=== PATIENT | female | born 1950 | race Hispanic/Latino ===

== ENCOUNTER 2017-02-19 07:05 | Inpatient (IN) | payer MEDICARE, OTHER ==
[2017-02-19 07:47] LABS: INR 1.08 (0.93-1.08); PARTIAL THROMBOPLASTIN TIME 28.1 Seconds (23.7-30.8); PROTHROMBIN TIME 11.7 Seconds (9.9-11.8)
[2017-02-19] MEDS ORDERED: Midazolam 2 MG/2 ML VIAL ONE (12:07)
[2017-02-19] MEDS ORDERED: Propofol 10 mg/ml Inj (20 ML) ONE (12:07)
[2017-02-19] MEDS ORDERED: Rocuronium 10 mg/ml (5 ml) ONE (12:33)
[2017-02-19] MEDS ORDERED: Succinylcholine 200 mg/10 ml Inj IV ONE (12:33)
[2017-02-19] MEDS ORDERED: Morphine 4 mg/ml ISec ONE (12:50)
[2017-02-19] MEDS ORDERED: Glycopyrrolate 0.2 mg/ml (2ml vial) ONE (13:48)
[2017-02-19] MEDS ORDERED: Neostigmine Methylsulfate 3mg/3ml Syringe IV ONE (14:03)
[2017-02-19] MEDS ORDERED: HYDROmorphone 0.5 mg/0.5 ml ISec IVP PRN (14:07)
--- NOTE | 2017-02-19 14:08 | PCM.SURG1 ---
Surgeon's Initial Post Op Note - Surgeon's Notes Surgeon: Dr. Pedraza Market Asset Protection Manager: Dr. Aranda PGY3; Dr. Roberto PGY2; Ellie Branham OMS3 Type of Anesthesia: General Endo Anesthesia Administered By: Kristal Pre-Operative Diagnosis: Right Breast mass Operative Findings: same Post-Operative Diagnosis: same Operation Performed: Right Simple Mastectomy with needle localization. Excision of Axillary lymph nodes Specimen/Specimens Removed: Right Breast Estimated Blood Loss: EBL {In ML}: 30 Blood Products Given: N/A Drains Used: Cr Post-Op Condition: Good Date of Surgery/Procedure: 02/19/17 Time of Surgery/Procedure: 14:10
[2017-02-19] MEDS ORDERED: HYDROmorphone 1 mg/ml ISec IVP PRN (14:09)
[2017-02-19] MEDS ORDERED: FORMOTEROL IH PRN (14:11)
[2017-02-19] MEDS ORDERED: MOMETASONE IH PRN (14:11)
[2017-02-19] MEDS ORDERED: ARO IH PRN (14:11)
[2017-02-19] MEDS ORDERED: CLONAZEPAM 1 MG PO PRN (14:11)
[2017-02-19] MEDS ORDERED: FENOFIBRIC ACID 135 MG PO SCH (14:15)
[2017-02-19] MEDS ORDERED: FENOFIBRIC ACID 135 MG PO ONE (14:45)
[2017-02-19] MEDS ORDERED: Non Formulary Medication (Simvastatin [Simvastatin] 20 MG) PO SCH (18:00)
[2017-02-19 19:34] VITALS: BMI 44.9
[2017-02-19] MEDS ORDERED: Pneumococcal 23-Valent Vaccine IM ONE (19:34)
--- NOTE | 2017-02-20 00:15 | OP ---
PROCEDURE DATE: 02/19/2017 PREOPERATIVE DIAGNOSES: 1. Right breast abnormal lesion. 2. History of left breast cancer. POSTOPERATIVE DIAGNOSES: 1. Right breast abnormal lesion. 2. History of left breast cancer. PROCEDURE: Needle localization of the breast lesion and right modified radical mastectomy. SURGEON: Dr. Ole Pedraza MD GOLF PLAYER ASSISTANT: Dr. Aranda and Dr. Enriquez. TYPE OF ANESTHESIA: General endotracheal anesthesia. ANESTHESIA ADMINISTERED BY: Dr. Brownlee. ESTIMATED BLOOD LOSS: Minimal. SPECIMEN: Right breast and right axillary content. INDICATIONS: The patient is a 67-year-old female who has a history of extensive breast cancer of left breast several years ago treated with chemotherapy, but subsequently the patient developed a lesion in the right breast for which she was going through testing over the past few months. Last biopsy showed abnormalities that were suspected for cancer. Given these findings and the previous history and the patient's insistence to have complete mastectomy due to several reasons one of them being to have any possibility of cancer within it. The second one was due to the weight of her breast which was just a right breast after previous left mastectomy cause her significant back pain and discomfort, therefore a decision was made to proceed with modified radical mastectomy in order to remove the entire breast and some of the lymphatic content of the axilla. DESCRIPTION OF PROCEDURE: The patient was brought to the operating room, placed on operating table in supine position. The patient was connected to the EKG, blood pressure, and pulse oximetry monitors. The patient then underwent general endotracheal anesthesia and was prepped and draped in usual sterile fashion. First a standard time-out procedure took place with everybody in the room agreed as to the patient's identity, diagnoses, and procedure to be performed. First the right breast was marked in order to create adequate flap of skin in order to close the wound. Once this was done, I then proceeded with making an incision, first the superior one and flap was raised all the way up to the clavicle. The underlying breast tissue was carefully scooped down along with the pectoralis major muscle. In the similar fashion the inferior flap was raised through the kinsey's ligament to separate the breast from the subcutaneous fat and went down all the way to almost the ridge of the chest. Once this was done, the breast was completely mobilized all the way towards the axilla. Once this was done, I then proceeded with carrying through the fat incision over the axilla and carefully dissected out the lymph nodes from the right axilla the fatty tissue of the lymph node containing tissue from the axillary structure and left most of the nerves intact. The long thoracic nerve was identified and left intact. The tissue was now marked and there was one palpable lymph node within the axilla which was taken separately and sent for a frozen section which came back as negative for cancer. The breast now was removed, highest axillary content was marked with a stitch and sent for pathology. Wound was now copiously irrigated with all the bleeding points were cauterized. There was excellent hemostasis. The Cr drain was placed into the axilla and under the flaps. The wound was closed using 3-0 Vicryl deep dermal stitches and surgical kandi for skin. Sterile dressings were applied to the wound. The patient tolerated the procedure well and there were no complications. The patient was awaken and extubated and transferred to recovery room for further observations. Ole Pedraza MD NEEL
[2017-02-20] MEDS: Insulin Reg-LOW-Coverage SC SCH ×5 (01:54→21:53)
[2017-02-20] MEDS: HYDROmorphone 1 mg/ml ISec SC PRN ×2 (07:40→21:00)
[2017-02-20] MEDS: Digoxin 250 mcg (0.25 mg) Tab PO SCH (09:05)
[2017-02-20] MEDS: diltiaZEM 180 mg/24 Hours CD Cap PO SCH (09:05)
[2017-02-20] MEDS: FENOFIBRIC ACID 135 MG PO SCH ×2 (09:15)
--- NOTE | 2017-02-20 12:25 | CP.PCM.PN ---
<Rios Roberto - Last Filed: 02/20/17 12:17> Subjective - Date & Time of Evaluation Date of Evaluation: 02/20/17 Time of Evaluation: 09:10 - Subjective Subjective: SURGERY NOTE FOR DR. PEDRAZA 67F seen and examined at bedside. Patient complain of pain at site of mastectomy. IV pain medication helps with pain. Tolerating diet. Objective - Vital Signs/Intake and Output Vital Signs (last 24 hours): Temp Pulse Resp BP Pulse Ox 97.6 F 90 17 152/100 H 87 L 02/20/17 06:00 02/20/17 09:05 02/20/17 06:00 02/20/17 09:05 02/20/17 06:00 Intake and Output: 02/20/17 02/20/17 06:59 18:59 Intake Total 400 Output Total 275 Balance 125 - Medications Medications: Current Medications Atorvastatin Calcium (Lipitor) 10 mg PO DIN [facility] Last Admin: 02/19/17 17:59 Dose: 10 mg Digoxin (Lanoxin) 0.25 mg PO DAILY [facility] Last Admin: 02/20/17 09:05 Dose: 0.25 mg Diltiazem HCl (Cardizem Cd) 180 mg PO DAILY [facility] Last Admin: 02/20/17 09:05 Dose: 180 mg Famotidine (Pepcid) 20 mg PO DAILY [facility] Last Admin: 02/20/17 10:24 Dose: 20 mg Furosemide (Lasix) 20 mg PO BID [facility] Last Admin: 02/20/17 09:05 Dose: 20 mg Home Med (Home Med) 1 unit PO TUE [facility] Home Med (Home Med) 1 unit PO DAILY [facility] Last Admin: 02/20/17 09:15 Dose: Not Given Hydromorphone HCl (Dilaudid) 1 mg SC Q4H PRN PRN Reason: Pain, severe (8-10) Last Admin: 02/20/17 07:40 Dose: 1 mg Insulin Human Regular (Humulin R Low) 0 units SC ACHS [facility] PRN Reason: Protocol Last Admin: 02/20/17 07:49 Dose: 3 units Losartan Potassium (Cozaar) 100 mg PO DAILY [facility] Last Admin: 02/20/17 09:05 Dose: 100 mg Metformin HCl (Glucophage Xr) 750 mg PO DAILY [facility] Last Admin: 02/20/17 09:05 Dose: 750 mg Non-Formulary Medication (Clonazepam [Clonazepam]) 1 mg PO Q6H PRN PRN Reason: Anxiety Non-Formulary Medication (Mometasone/Formoterol [Dulera 200 Mcg/5 Mcg Inhaler]) 1 molina IH PRN PRN PRN Reason: Wheezing Non-Formulary Medication (Fenofibric Acid (Choline) [Fenofibric Acid]) 135 mg PO DAILY [facility] Last Admin: 02/20/17 09:15 Dose: Not Given Ondansetron HCl (Zofran Tab) 4 mg PO Q6H PRN PRN Reason: Nausea/Vomiting Last Admin: 02/20/17 08:56 Dose: 4 mg - Labs Labs: PT 11.7 Seconds (9.9-11.8) 02/19/17 07:19 INR 1.08 (0.93-1.08) 02/19/17 07:19 APTT 28.1 Seconds (23.7-30.8) 02/19/17 07:19 - Constitutional Appears: Non-toxic, No Acute Distress - Head Exam Head Exam: ATRAUMATIC - Respiratory Exam Respiratory Exam: Clear to Ausculation Bilateral, NORMAL BREATHING PATTERN - Cardiovascular Exam Cardiovascular Exam: REGULAR RHYTHM, +S1, +S2 - Neurological Exam Neurological Exam: Alert, Awake - Additional Findings Additional findings: breast exam: R/L mastectomy s/p right mastectomy POD1 [place] in place - no signs of infection - NIKKI drain - 15cc serosang overnight Assessment and Plan - Assessment and Plan (Free Text) Assessment: 67F Right Mastectomy and lymph node excision POD1 Plan: - Pain control - Monitor incision site - Monitor NIKKI output - CBC/BMP tomorrow - GI/DVT ppx Discussed with Dr. Aldair Roberto, PGY2 <Ole Pedraza - Last Filed: 02/22/17 00:40> Objective - Vital Signs/Intake and Output Vital Signs (last 24 hours): Temp Pulse Resp BP Pulse Ox 98.0 F 70 20 135/76 90 L 02/21/17 16:00 02/21/17 16:00 02/21/17 16:00 02/21/17 17:07 02/21/17 16:00 Intake and Output: 02/21/17 02/22/17 18:59 06:59 Intake Total 240 480 Output Total 500 Balance 240 -20 - Medications Medications: Current Medications Atorvastatin Calcium (Lipitor) 10 mg PO DIN [facility] Last Admin: 02/21/17 17:07 Dose: 10 mg Digoxin (Lanoxin) 0.25 mg PO DAILY [facility] Last Admin: 02/21/17 09:38 Dose: 0.25 mg Diltiazem HCl (Cardizem Cd) 180 mg PO DAILY [facility] Last Admin: 02/21/17 09:37 Dose: 180 mg Famotidine (Pepcid) 20 mg PO DAILY [facility] Last Admin: 02/21/17 09:37 Dose: 20 mg Furosemide (Lasix) 20 mg PO BID [facility] Last Admin: 02/21/17 17:07 Dose: 20 mg Home Med (Home Med) 1 unit PO TUE [facility] Home Med (Home Med) 1 unit PO DAILY [facility] Last Admin: 02/21/17 12:34 Dose: Not Given Hydromorphone HCl (Dilaudid) 1 mg SC Q4H PRN PRN Reason: Pain, severe (8-10) Last Admin: 02/21/17 13:32 Dose: 1 mg Insulin Human Regular (Humulin R Low) 0 units SC [facility] PRN Reason: Protocol Last Admin: 02/21/17 21:29 Dose: Not Given Losartan Potassium (Cozaar) 100 mg PO DAILY [facility] Last Admin: 02/21/17 09:38 Dose: 100 mg Metformin HCl (Glucophage Xr) 750 mg PO DAILY [facility] Last Admin: 02/21/17 09:37 Dose: 750 mg Non-Formulary Medication (Clonazepam [Clonazepam]) 1 mg PO Q6H PRN PRN Reason: Anxiety Non-Formulary Medication (Mometasone/Formoterol [Dulera 200 Mcg/5 Mcg Inhaler]) 1 molina IH PRN PRN PRN Reason: Wheezing Non-Formulary Medication (Fenofibric Acid (Choline) [Fenofibric Acid]) 135 mg PO DAILY [facility] Last Admin: 02/21/17 12:34 Dose: Not Given Ondansetron HCl (Zofran Tab) 4 mg PO Q6H PRN PRN Reason: Nausea/Vomiting Last Admin: 02/21/17 13:31 Dose: 4 mg - Labs Labs: 02/21/17 09:03 02/21/17 09:03 PT 11.7 Seconds (9.9-11.8) 02/19/17 07:19 INR 1.08 (0.93-1.08) 02/19/17 07:19 APTT 28.1 Seconds (23.7-30.8) 02/19/17 07:19 Assessment and Plan - Assessment and Plan (Free Text) Plan: Patient was seen and examined by me. I agree with assessment and plan as per resident's note.
[2017-02-20 18:50] VITALS: RESP 20
[2017-02-20] MEDS ORDERED: Magnesium Hydroxide Susp 30 ml UD PO ONE (20:22)
--- NOTE | 2017-02-21 06:30 | CP.PCM.PN ---
<Rios Roberto - Last Filed: 02/21/17 06:30> Subjective - Date & Time of Evaluation Date of Evaluation: 02/21/17 Time of Evaluation: 05:35 - Subjective Subjective: SURGERY NOTE FOR DR. PEDRAZA 67F seen and examined at bedside. Patient resting comfortably. NAEON. Patient complaining of moderate pain in the right breast. NIKKI drain in place. Bandage with serous fluid stain. Objective - Vital Signs/Intake and Output Vital Signs (last 24 hours): Temp Pulse Resp BP Pulse Ox 98 F 98 H 20 105/67 93 L 02/20/17 18:00 02/20/17 18:00 02/20/17 18:00 02/20/17 18:00 02/20/17 18:00 Intake and Output: 02/20/17 02/21/17 18:59 06:59 Intake Total 540 Output Total 815 Balance -275 - Medications Medications: Current Medications Atorvastatin Calcium (Lipitor) 10 mg PO DIN [facility] Last Admin: 02/20/17 17:15 Dose: 10 mg Digoxin (Lanoxin) 0.25 mg PO DAILY [facility] Last Admin: 02/20/17 09:05 Dose: 0.25 mg Diltiazem HCl (Cardizem Cd) 180 mg PO DAILY [facility] Last Admin: 02/20/17 09:05 Dose: 180 mg Famotidine (Pepcid) 20 mg PO DAILY [facility] Last Admin: 02/20/17 10:24 Dose: 20 mg Furosemide (Lasix) 20 mg PO BID [facility] Last Admin: 02/20/17 17:15 Dose: 20 mg Home Med (Home Med) 1 unit PO TUE [facility] Home Med (Home Med) 1 unit PO DAILY [facility] Last Admin: 02/20/17 09:15 Dose: Not Given Hydromorphone HCl (Dilaudid) 1 mg SC Q4H PRN PRN Reason: Pain, severe (8-10) Last Admin: 02/20/17 21:00 Dose: 1 mg Insulin Human Regular (Humulin R Low) 0 units SC ACHS [facility] PRN Reason: Protocol Last Admin: 02/20/17 21:53 Dose: Not Given Losartan Potassium (Cozaar) 100 mg PO DAILY [facility] Last Admin: 02/20/17 09:05 Dose: 100 mg Metformin HCl (Glucophage Xr) 750 mg PO DAILY [facility] Last Admin: 02/20/17 09:05 Dose: 750 mg Non-Formulary Medication (Clonazepam [Clonazepam]) 1 mg PO Q6H PRN PRN Reason: Anxiety Non-Formulary Medication (Mometasone/Formoterol [Dulera 200 Mcg/5 Mcg Inhaler]) 1 molina IH PRN PRN PRN Reason: Wheezing Non-Formulary Medication (Fenofibric Acid (Choline) [Fenofibric Acid]) 135 mg PO DAILY [facility] Last Admin: 02/20/17 09:15 Dose: Not Given Ondansetron HCl (Zofran Tab) 4 mg PO Q6H PRN PRN Reason: Nausea/Vomiting Last Admin: 02/20/17 08:56 Dose: 4 mg - Labs Labs: PT 11.7 Seconds (9.9-11.8) 02/19/17 07:19 INR 1.08 (0.93-1.08) 02/19/17 07:19 APTT 28.1 Seconds (23.7-30.8) 02/19/17 07:19 - Constitutional Appears: Non-toxic, No Acute Distress - Respiratory Exam Respiratory Exam: Clear to Ausculation Bilateral, NORMAL BREATHING PATTERN - Cardiovascular Exam Cardiovascular Exam: REGULAR RHYTHM, +S1, +S2 - GI/Abdominal Exam GI & Abdominal Exam: Soft. absent: Distended, Firm, Guarding, Rigid, Tenderness , Rebound - Neurological Exam Neurological Exam: Alert, Awake - Skin Skin Exam: Dry, Intact, Normal Color, Warm Additional comments: Breast exam- patient tender to touch on right breast. kandi in place, serous fluid stains on the dressing - NIKKI drain - 40 cc serous fluid output. Assessment and Plan - Assessment and Plan (Free Text) Assessment: 67F Right Mastectomy and lymph node excision POD2 Plan: - needs inpatient IV Pain control - Monitor incision site - Monitor NIKKI output - CBC/BMP this AM - GI/DVT ppx Discussed with Dr. Aldair Roberto, PGY2 <Ole Pedraza - Last Filed: 02/22/17 00:41> Objective - Vital Signs/Intake and Output Vital Signs (last 24 hours): Temp Pulse Resp BP Pulse Ox 98.0 F 70 20 135/76 90 L 02/21/17 16:00 02/21/17 16:00 02/21/17 16:00 02/21/17 17:07 02/21/17 16:00 Intake and Output: 02/21/17 02/22/17 18:59 06:59 Intake Total 240 480 Output Total 500 Balance 240 -20 - Medications Medications: Current Medications Atorvastatin Calcium (Lipitor) 10 mg PO DIN [facility] Last Admin: 02/21/17 17:07 Dose: 10 mg Digoxin (Lanoxin) 0.25 mg PO DAILY [facility] Last Admin: 02/21/17 09:38 Dose: 0.25 mg Diltiazem HCl (Cardizem Cd) 180 mg PO DAILY [facility] Last Admin: 02/21/17 09:37 Dose: 180 mg Famotidine (Pepcid) 20 mg PO DAILY [facility] Last Admin: 02/21/17 09:37 Dose: 20 mg Furosemide (Lasix) 20 mg PO BID [facility] Last Admin: 02/21/17 17:07 Dose: 20 mg Home Med (Home Med) 1 unit PO TUE [facility] Home Med (Home Med) 1 unit PO DAILY [facility] Last Admin: 02/21/17 12:34 Dose: Not Given Hydromorphone HCl (Dilaudid) 1 mg SC Q4H PRN PRN Reason: Pain, severe (8-10) Last Admin: 02/21/17 13:32 Dose: 1 mg Insulin Human Regular (Humulin R Low) 0 units SC [facility] PRN Reason: Protocol Last Admin: 02/21/17 21:29 Dose: Not Given Losartan Potassium (Cozaar) 100 mg PO DAILY [facility] Last Admin: 02/21/17 09:38 Dose: 100 mg Metformin HCl (Glucophage Xr) 750 mg PO DAILY [facility] Last Admin: 02/21/17 09:37 Dose: 750 mg Non-Formulary Medication (Clonazepam [Clonazepam]) 1 mg PO Q6H PRN PRN Reason: Anxiety Non-Formulary Medication (Mometasone/Formoterol [Dulera 200 Mcg/5 Mcg Inhaler]) 1 molina IH PRN PRN PRN Reason: Wheezing Non-Formulary Medication (Fenofibric Acid (Choline) [Fenofibric Acid]) 135 mg PO DAILY [facility] Last Admin: 02/21/17 12:34 Dose: Not Given Ondansetron HCl (Zofran Tab) 4 mg PO Q6H PRN PRN Reason: Nausea/Vomiting Last Admin: 02/21/17 13:31 Dose: 4 mg - Labs Labs: 02/21/17 09:03 02/21/17 09:03 PT 11.7 Seconds (9.9-11.8) 02/19/17 07:19 INR 1.08 (0.93-1.08) 02/19/17 07:19 APTT 28.1 Seconds (23.7-30.8) 02/19/17 07:19 Assessment and Plan - Assessment and Plan (Free Text) Plan: Patient was seen and examined by me. I agree with assessment and plan as per resident's note.
[2017-02-21] MEDS: Insulin Reg-LOW-Coverage SC SCH ×4 (08:38→21:29)
[2017-02-21 09:06] LABS: HEMOGLOBIN 12.4 gm/dL (12.0-16.0); MEAN CELL VOLUME 90.1 fL (80.0-105.0); MEAN CORPUSCULAR HGB CONC 33.2 g/dl (31.0-37.0); MEAN PLATELET VOLUME 11.3 fl (7.0-11.0); RBC 4.14 10^6/uL (3.5-6.1); RED CELL DISTRIBUTION WIDTH 15.6 % (11.5-14.5); WHITE BLOOD COUNT 10.8 10^3/ul (4.5-11.0)
[2017-02-21 09:21] LABS: BLOOD UREA NITROGEN 20 mg/dL (7-21); CALCIUM 8.7 mg/dL (8.4-10.5); GFR AFRICAN-AMERICAN > 60; GFR NON-AFRICAN AMERICAN > 60
[2017-02-21] MEDS: diltiaZEM 180 mg/24 Hours CD Cap PO SCH (09:37)
[2017-02-21] MEDS: Digoxin 250 mcg (0.25 mg) Tab PO SCH (09:38)
[2017-02-21] MEDS: FENOFIBRIC ACID 135 MG PO SCH ×2 (12:34)
[2017-02-21] MEDS: HYDROmorphone 1 mg/ml ISec SC PRN (13:32)
[2017-02-21 16:47] VITALS: O2SAT 90
[2017-02-22 08:00] VITALS: PULSE 98; TEMP 98.1
[2017-02-22] MEDS: Insulin Reg-LOW-Coverage SC SCH ×2 (08:56→12:05)
[2017-02-22] MEDS ORDERED: Oxycodone/Acetaminophen 5/325 mg Tab PO PRN (08:59)
--- NOTE | 2017-02-22 10:19 | US ---
HISTORY: Patient is a 67-year-old female with history of right breast cancer (Biopsy-proven) presenting for right breast needle localization prior to bilateral mastectomy. TECHNIQUE/FINDINGS: Timeout was called for ultrasound guided wire needle localization procedure for lesion of the right breast. The mass was identified with ultrasound at the 8 o'clock radius 4 cm from the nipple at the right breast. Overlying skin was marked for procedure. Maximum sterile barrier protection is provided and the skin overlying the lesion in question. 1 percent lidocaine was utilized for local anesthesia. A wire was placed through the mass at the right breast with ultrasound guidance utilizing a 7.5 cm coaxial system. Mediolateral and craniocaudal post deployment views were obtained and demonstrated the needle localization wire to be in the mass near the previously placed biopsy clip. the wire was properly secured using sterile transparent barrier as well as cloth tape. Patient tolerated the procedure well with no complications. Postoperatively, the right breast specimen was not sent for post mastectomy imaging. OTHER FINDINGS: None. IMPRESSION: Status post successful ultrasound-guided needle localization right breast mass. The await definitive pathology report.
[2017-02-22] MEDS: diltiaZEM 180 mg/24 Hours CD Cap PO SCH ×2 (10:54→10:55)
[2017-02-22] MEDS: Digoxin 250 mcg (0.25 mg) Tab PO SCH ×2 (10:56→10:57)
[2017-02-22] MEDS: FENOFIBRIC ACID 135 MG PO SCH ×2 (10:56)
[2017-02-22 10:58] VITALS: BP 140/90; PULSE 82
--- NOTE | 2017-02-22 12:48 | CP.PCM.DIS ---
Provider - Provider Date of Admission: 02/19/17 15:45 Attending physician: Ole Pedraza MD Primary care physician: Rafy Charles MD Time Spent in preparation of Discharge (in minutes): 40 Hospital Course - Lab Results Lab Results: Most Recent Lab Values WBC 10.8 10^3/ul (4.5-11.0) D 02/21/17 09:03 RBC 4.14 10^6/uL (3.5-6.1) 02/21/17 09:03 Hgb 12.4 gm/dL (12.0-16.0) 02/21/17 09:03 Hct 37.3 % (36.0-48.0) 02/21/17 09:03 MCV 90.1 fL (80.0-105.0) 02/21/17 09:03 MCH 30.0 pg (25.0-35.0) 02/21/17 09:03 MCHC 33.2 g/dl (31.0-37.0) 02/21/17 09:03 RDW 15.6 % (11.5-14.5) H 02/21/17 09:03 Plt Count 197 10^3/uL (120.0-450.0) 02/21/17 09:03 MPV 11.3 fl (7.0-11.0) H 02/21/17 09:03 PT 11.7 Seconds (9.9-11.8) 02/19/17 07:19 INR 1.08 (0.93-1.08) 02/19/17 07:19 APTT 28.1 Seconds (23.7-30.8) 02/19/17 07:19 Sodium 136 mmol/L (132-148) 02/21/17 09:03 Potassium 4.8 mmol/L (3.6-5.0) 02/21/17 09:03 Chloride 97 mmol/L (98-107) L 02/21/17 09:03 Carbon Dioxide 30 mmol/L (21-33) 02/21/17 09:03 Anion Gap 14 (10-20) 02/21/17 09:03 BUN 20 mg/dL (7-21) 02/21/17 09:03 Creatinine 0.4 mg/dL (0.5-1.4) L 02/21/17 09:03 Est GFR ( Amer) > 60 02/21/17 09:03 Est GFR (Non-Af Amer) > 60 02/21/17 09:03 POC Glucose (mg/dL) 273 mg/dL (65-110) H 02/22/17 11:11 Random Glucose 178 mg/dL (70-110) H 02/21/17 09:03 Calcium 8.7 mg/dL (8.4-10.5) 02/21/17 09:03 - Hospital Course Hospital Course: 67F presented to same day surgery for right breast mastectomy. Operation was uneventful. Patient admitted to post op pain that required several days of IV pain medication. Pain is now improved and patient ready to go home. Patient to get visiting home nurse as per social work. Discharge Exam - Head Exam Head Exam: ATRAUMATIC - Respiratory Exam Respiratory Exam: Clear to PA & Lateral, NORMAL BREATHING PATTERN - Cardiovascular Exam Cardiovascular Exam: REGULAR RHYTHM, +S1, +S2 - GI/Abdominal Exam GI & Abdominal Exam: Soft. absent: Distended, Firm, Guarding, Rebound, Rigid, Tenderness - Neurological Exam Neurological exam: Alert, Oriented x3 - Skin Skin Exam: Dry, Intact, Normal Color, Warm - Additional Findings Additional findings: right breast kandi in place. dressing changed.- no further drainage. Drain is serosanguinous. no redness Discharge Plan - Follow Up Plan Condition: GOOD Disposition: HOME/ ROUTINE Instructions: Mastectomy (DC) Additional Instructions: 1) Follow up with Dr. Pedraza upon discharge 2) At home daily dressing changes for a couple daily then leave incision open to air 3) [place] will be taken out in the office 4) Daily drainage of delroy drain 5) Take prescriptions as directed Referrals: Rafy Charles MD [Primary Care Provider] - Ole Pedraza MD [Staff Provider] -
--- NOTE | 2017-02-22 15:06 | MAM ---
PROCEDURE: Confirmation mammography post ultrasound-guided right needle localization. HISTORY: Right breast mass presenting for needle localization for scheduled bilateral mastectomy. COMPARISON: TECHNIQUE: Digital mammography was performed in craniocaudal and mediolateral views. FINDINGS: Solitary needle localization wires identified placed from an inferior approach the stiffener approximating the prior ultrasound-guided biopsy clip within in the inferior right breast mass best seen on ultrasonography. IMPRESSION: Status post cycle also guided deployment of the localization wire inferior right breast mass.
[2017-02-23] MEDS ORDERED: CHOLECALCIFEROL 50000 UNIT PO SCH (10:00)
[2017-02-23] MEDS ORDERED: Non Formulary Medication (Cholecalciferol (Vitamin D3) [Vitamin D3] 50,000 UNIT) PO SCH (10:00)
== END 2017-02-22 15:57 | disposition home or self-care (01) | DRG 581 ==
LOC: MAMSURG 07:05 → 3RNO 15:45
PROVIDERS: ADMIT General Practice; ATTEND General Practice
PROC: 07B50ZX Excision of Right Axillary Lymphatic, Open Approach, Diagnostic (ICD-10-PCS; 2017-02-19)
PROC: BH40ZZZ Ultrasonography of Right Breast (ICD-10-PCS; 2017-02-19)
PROC: 0HTT0ZZ Resection of Right Breast, Open Approach (ICD-10-PCS; principal; 2017-02-19 12:00)
DX: N60.21 Fibroadenosis of right breast (principal); I10 Essential (primary) hypertension; E11.9 Type 2 diabetes mellitus without complications; G89.18 Other acute postprocedural pain; Z85.3 Personal history of malignant neoplasm of breast; Z90.12 Acquired absence of left breast and nipple; Z92.21 Personal history of antineoplastic chemotherapy; J45.909 Unspecified asthma, uncomplicated; I49.9 Cardiac arrhythmia, unspecified; E66.9 Obesity, unspecified; E80.6 Other disorders of bilirubin metabolism; N60.41 Mammary duct ectasia of right breast; N61.0 Mastitis without abscess; N60.31 Fibrosclerosis of right breast; N60.81 Other benign mammary dysplasias of right breast; N60.91 Unspecified benign mammary dysplasia of right breast; N64.1 Fat necrosis of breast

== ENCOUNTER 2017-04-08 12:26 | Emergency (ER) | payer MEDICARE, OTHER ==
[2017-04-08 12:27] VITALS: PULSE 82; BMI 44.9
[2017-04-08 12:46] VITALS: TEMP 98.2
[2017-04-08] MEDS ORDERED: Morphine 4 mg/ml ISec IM STA (13:06)
--- NOTE | 2017-04-08 13:06 | ED PDOC ---
Arrival/HPI - General Chief Complaint: Back Pain Time Seen by Provider: 04/08/17 12:59 Historian: Patient - History of Present Illness Narrative History of Present Illness (Text): 04/08/17 12:59 67 y/o female, pmh including htn/a.fibb/dm/cholecystitis, nkda, c/o rt. lower back pain radiating to the rt. lower extremity for the past 4 days with no fall or trauma. Aching pain, aggravated by walking and movement, no numbness or tingling, no palpitation, no rash, no night sweat, no dizziness, no change in vision, no urinary symptoms. Pt. is on the eliquis daily for the A.fibb. Past Medical History - Provider Review Nursing Documentation Reviewed: Yes - Infectious Disease Hx of Infectious Diseases: None - Tetanus Immunization Tetanus Immunization: Unknown - Cardiac Hx Cardiac Disorders: Yes Hx Cardiac Arrhythmia: Yes (AFIB) Hx Hypertension: Yes Hx Pacemaker: No Hx Peripheral Edema: Yes - Pulmonary Hx Respiratory Disorders: Yes (SMOKED CIGARETTES QUIT 20 YRS AGO.) Hx Asthma: Yes Hx Chronic Obstructive Pulmonary Disease (COPD): Yes Hx Sleep Apnea: Yes (CPAP) Other/Comment: FORMER SMOKER - Neurological Hx Neurological Disorder: No - HEENT Hx HEENT Disorder: No - Renal Hx Renal Disorder: No - Endocrine/Metabolic Hx Endocrine Disorders: Yes Hx Hyperthyroidism: Yes - Hematological/Oncological Hx Blood Disorders: Yes Hx Cancer: Yes (b/l breast cancer) Hx Chemotherapy: Yes (AND RADIATION TO L BREAT COMPLETED) - Integumentary Hx Dermatological Disorder: Yes Other/Comment: TOTAL MASTECTOMY BILATERAL BREAST. ONE IN 2004 AND ONE 02-19-17 - Musculoskeletal/Rheumatological Hx Musculoskeletal Disorders: Yes Hx Falls: No Hx Unsteady Gait: Yes - Gastrointestinal Hx Gastrointestinal Disorders: Yes (LAP BAND SX) Hx Gall Bladder Disease: Yes (CHOLECYSTECTOMY) Hx Gastroesophageal Reflux: Yes - Genitourinary/Gynecological Hx Genitourinary Disorders: No - Psychiatric Hx Psychophysiologic Disorder: No Hx Emotional Abuse: No Hx Physical Abuse: No Hx Substance Use: No - Surgical History Hx Cholecystectomy: Yes Other/Comment: POST BILATERAL TOTAL MASTECTOMY. LEFT 2004,RIGHT 02-19-17. - Anesthesia Hx Anesthesia Reactions: No Hx Malignant Hyperthermia: No - Suicidal Assessment Feels Threatened In Home Enviroment: No Family/Social History - Physician Review Nursing Documentation Reviewed: Yes Family/Social History: Unknown Family HX Smoking Status: Former Smoker Hx Alcohol Use: No Hx Substance Use: No Hx Substance Use Treatment: No Allergies/Home Meds Allergies/Adverse Reactions: Allergies No Known Allergies Allergy (Verified 04/08/17 12:46) Review of Systems - Review of Systems Constitutional: absent: Fatigue, Fevers Eyes: absent: Vision Changes ENT: absent: Hearing Changes Respiratory: absent: SOB, Cough, Sputum Cardiovascular: absent: Chest Pain Gastrointestinal: absent: Abdominal Pain Genitourinary Female: absent: Dysuria, Frequency Musculoskeletal: Back Pain, Myalgias. absent: Arthralgias, Neck Pain, Joint Swelling Skin: absent: Rash Neurological: absent: Headache, Dizziness Physical Exam Vital Signs Reviewed: Yes Vital Signs Temp Pulse Resp BP Pulse Ox 04/08/17 14:03 86 18 128/69 98 04/08/17 12:54 94 H 18 130/75 98 04/08/17 12:39 98.2 F 100 H 18 132/83 96 Temperature: Afebrile Blood Pressure: Normal Pulse: Regular Respiratory Rate: Normal Appearance: Positive for: Well-Appearing, Non-Toxic Pain Distress: Severe Mental Status: Positive for: Alert and Oriented X 3 - Systems Exam Head: Present: Atraumatic, Normocephalic Pupils: Present: PERRL Extroacular Muscles: Present: EOMI Conjunctiva: Present: Normal Mouth: Present: Moist Mucous Membranes Neck: Present: Normal Range of Motion Respiratory/Chest: Present: Clear to Auscultation, Good Air Exchange. No: Respiratory Distress, Accessory Muscle Use Cardiovascular: Present: Regular Rate and Rhythm, Normal S1, S2. No: Murmurs Abdomen: Present: Normal Bowel Sounds. No: Tenderness, Distention, Peritoneal Signs Back: Present: Normal Inspection, Paraspinal Tenderness, Other (LS spine: +ttp on the rt. parapinal muscle region, no midline tenderness or step off, no rash, FROM without limitation with pain, sensation intact, motor 5/5, no saddling gait. ). No: CVA Tenderness, Midline Tenderness, Decubitus Ulcer Upper Extremity: Present: Normal Inspection. No: Cyanosis, Edema Lower Extremity: Present: Normal Inspection. No: Edema Neurological: Present: GCS=15, Speech Normal, Motor Func Grossly Intact, Gait Normal, Memory Normal Skin: Present: Warm, Dry, Normal Color. No: Rashes Psychiatric: Present: Alert, Oriented x 3, Normal Insight, Normal Concentration Medical Decision Making ED Course and Treatment: 04/08/17 13:19 -CT -RLE Venuous Doppler -Morphine/valium -I checked the [facility], pt. has multiple tramadol prescriptions so likely wouldn't prescribe any controlled substances from the ER. 04/08/17 14:36 -CT LS spine: Multilevel degenerative disc disease. Possible extruded disc at L2 -3 superimposed upon disc bulge. Disc bulge at L1-2 and L3-4. Right parasagittal disc herniation at L4-5. Disc bulge at L5-S1. Multilevel central spinal stenosis and bilateral neural foraminal stenosis as described. Multilevel degenerative facet arthropathy. Lumbar levoscoliosis. Examination is somewhat limited due to patient body habitus. -RLE Venuous doppler show no DVT. -I discussed all labs/radiology results with the patient. -Pt. feels much better now, decadron 10mg IM ordered with the cane -Discharge home with lidoderm patch, cane, continue tramadol at home as needed, follow up with you our own pmd and pain management within 2 days, return to the ER for any new or worsening signs or symptoms. - RAD Interpretation Radiology Orders: 04/08/17 13:06 LUMBAR SPINE W/O CONTRAST [CT] Stat DUPLEX LOWER EXTRM VEIN RIGHT [US] Stat -RLE Venuous Doppler: as per preliminary report, no acute DVT -CT Lumbar spine: PROCEDURE: CT Lumbar Spine without contrast HISTORY: lower back pain radiating to RLE COMPARISON: None. TECHNIQUE: Axial computed tomography images were obtained of the lumbar spine without the use of intravenous contrast. Coronal and sagittal reformatted images were created and reviewed. Radiation dose: Total exam DLP = 951.95 mGy-cm. This CT exam was performed using one or more of the following dose reduction techniques: Automated exposure control, adjustment of the mA and/or kV according to patient size, and/or use of iterative reconstruction technique. FINDINGS: VERTEBRAE: The vertebral bodies are maintained in height. The transverse processes and posterior elements are intact. Normal vertebral alignment is maintained. DISCS/SPINAL CANAL/NEURAL FORAMINA: L1-2: Narrowed intervertebral disc space. Marginal osteophytes. Diffuse disc bulge. Spinal stenosis. Severe right and moderate left neural foraminal stenosis. L2-3: Narrowed intervertebral disc space. Possible extruded disc superimposed upon disc bulge. This is a midline disc extrusion extending along the posterior aspect of the L3 vertebral body. Visualization is somewhat limited. Consider evaluation with magnetic resonance imaging. Severe right and moderate left neural foraminal stenosis. There is central spinal stenosis. L3-4: Narrowed intervertebral disc space. Diffuse disc bulge. Moderate central spinal stenosis. Moderate left and severe right neural foraminal stenosis. Bilateral degenerative facet arthropathy, right greater than left. L4-5: Narrowed intervertebral disc space. Right parasagittal disc herniation. Central spinal stenosis. Severe bilateral neural foraminal stenosis. Bilateral degenerative facet arthropathy. L5-S1: Mild disc bulge. Bilateral degenerative facet arthropathy. Large osteophyte left foraminal and lateral aspect of L5 vertebra resulting in severe left neural foraminal stenosis. There is moderate to severe right neural foraminal stenosis. There is no central spinal stenosis. PARASPINAL SOFT TISSUES: Unremarkable. OTHER FINDINGS: Lumbar levoscoliosis. IMPRESSION: Multilevel degenerative disc disease. Possible extruded disc at L2-3 superimposed upon disc bulge. Disc bulge at L1-2 and L3-4. Right parasagittal disc herniation at L4-5. Disc bulge at L5-S1. Multilevel central spinal stenosis and bilateral neural foraminal stenosis as described. Multilevel degenerative facet arthropathy. Lumbar levoscoliosis. Examination is somewhat limited due to patient body habitus. Residential Youth Counselor: Radiologist - Medication Orders Current Medication Orders: Discontinued Medications Diazepam (Valium) 5 mg PO ONCE ONE PRN Reason: Protocol Stop: 04/08/17 13:07 Last Admin: 04/08/17 13:14 Dose: 5 mg Morphine Sulfate (Morphine) 4 mg IM STAT STA Stop: 04/08/17 13:07 Last Admin: 04/08/17 13:14 Dose: 4 mg - PA / RETAIL SALESWORKER / Resident Statement MD/DO has reviewed & agrees with the documentation as recorded. Disposition/Present on Arrival - Present on Arrival Any Indicators Present on Arrival: No History of DVT/PE: No History of Uncontrolled Diabetes: No Urinary Catheter: No History of Decub. Ulcer: No History Surgical Site Infection Following: None - Disposition Have Diagnosis and Disposition been Completed?: Yes Diagnosis: Lumbar disc herniation with radiculopathy, Degenerative joint disease (DJD) of lumbar spine Disposition: HOME/ ROUTINE Disposition Time: 13:20 Patient Plan: Discharge Condition: IMPROVED Additional Instructions: -Discharge home with lidoderm patch, cane, continue tramadol at home as needed, follow up with you our own pmd and pain management within 2 days, return to the ER for any new or worsening signs or symptoms. Prescriptions: Lidocaine 5% [Lidoderm] 1 patch TOP DAILY PRN #14 patch PRN Reason: Other Referrals: Samson Castrejon MD [IM] - Follow up with primary Jeff Almeida III, MD [Medical Doctor] - Follow up with primary Forms: [employer] (Danish), WORK NOTE
--- NOTE | 2017-04-08 13:56 | CT ---
PROCEDURE: CT Lumbar Spine without contrast HISTORY: lower back pain radiating to RLE COMPARISON: None. TECHNIQUE: Axial computed tomography images were obtained of the lumbar spine without the use of intravenous contrast. Coronal and sagittal reformatted images were created and reviewed. Radiation dose: Total exam DLP = 951.95 mGy-cm. This CT exam was performed using one or more of the following dose reduction techniques: Automated exposure control, adjustment of the mA and/or kV according to patient size, and/or use of iterative reconstruction technique. FINDINGS: VERTEBRAE: The vertebral bodies are maintained in height. The transverse processes and posterior elements are intact. Normal vertebral alignment is maintained. DISCS/SPINAL CANAL/NEURAL FORAMINA: L1-2: Narrowed intervertebral disc space. Marginal osteophytes. Diffuse disc bulge. Spinal stenosis. Severe right and moderate left neural foraminal stenosis. L2-3: Narrowed intervertebral disc space. Possible extruded disc superimposed upon disc bulge. This is a midline disc extrusion extending along the posterior aspect of the L3 vertebral body. Visualization is somewhat limited. Consider evaluation with magnetic resonance imaging. Severe right and moderate left neural foraminal stenosis. There is central spinal stenosis. L3-4: Narrowed intervertebral disc space. Diffuse disc bulge. Moderate central spinal stenosis. Moderate left and severe right neural foraminal stenosis. Bilateral degenerative facet arthropathy, right greater than left. L4-5: Narrowed intervertebral disc space. Right parasagittal disc herniation. Central spinal stenosis. Severe bilateral neural foraminal stenosis. Bilateral degenerative facet arthropathy. L5-S1: Mild disc bulge. Bilateral degenerative facet arthropathy. Large osteophyte left foraminal and lateral aspect of L5 vertebra resulting in severe left neural foraminal stenosis. There is moderate to severe right neural foraminal stenosis. There is no central spinal stenosis. PARASPINAL SOFT TISSUES: Unremarkable. OTHER FINDINGS: Lumbar levoscoliosis. IMPRESSION: Multilevel degenerative disc disease. Possible extruded disc at L2-3 superimposed upon disc bulge. Disc bulge at L1-2 and L3-4. Right parasagittal disc herniation at L4-5. Disc bulge at L5-S1. Multilevel central spinal stenosis and bilateral neural foraminal stenosis as described. Multilevel degenerative facet arthropathy. Lumbar levoscoliosis. Examination is somewhat limited due to patient body habitus.
[2017-04-08 14:03] VITALS: BP 128/69; PULSE 86
[2017-04-08] MEDS ORDERED: Dexamethasone 4 mg/1 ml ONE (14:56)
[2017-04-08 15:13] VITALS: RESP 16; O2SAT 99
--- NOTE | 2017-04-08 16:50 | US ---
PROCEDURE: Right lower extremity venous US HISTORY: Leg pain and swelling. Evaluate for DVT. PHYSICIAN(S): Renard Russell M.D. TECHNIQUE: Duplex sonography and color-flow Doppler with graded compression were used to evaluate the deep venous system of the right lower extremity. FINDINGS: The visualized deep venous system of the right lower extremity is sonographically normal and compressible. Normal waveforms and augmentation are seen. There is no sonographic evidence for deep venous thrombosis in the visualized segments of the right lower extremity. IMPRESSION: 1. No sonographic evidence for deep venous thrombosis in the visualized segments of the right lower extremity.
== END 2017-04-08 15:13 | disposition home or self-care (01) ==
LOC: ED 12:26
DX: M51.16 Intervertebral disc disorders with radiculopathy, lumbar region (principal); M47.896 Other spondylosis, lumbar region
CPT/HCPCS: 72131; 93971; 96372; 99283; J1100; J2270

== ENCOUNTER → 2017-12-16 | Day surgery (SDC) | payer MEDICARE ==
[2017-12-08 12:08] VITALS: BMI 45.7
[~2017-12-16] MED LIST: Iodixanol 320 MG/ML 200 ML BOTTLE IV ONE; Lidocaine 2% Inj (20ml) ONE; Midazolam 2 MG/2 ML VIAL ONE; Sodium Chloride 0.9% 1,000 ML IV SCH
--- NOTE | 2017-12-16 03:53 | HP ---
DATE OF EXAM: 12/15/2017 REASON FOR ADMISSION: Left and right heart catheterization, possible angioplasty. BRIEF CLINICAL HISTORY: This is a 67-year-old morbidly obese female with history of hypertension, diabetes, obesity, chronic atrial fibrillation, on Eliquis, pulmonary hypertension, complaining of chest pain and feels heaviness in the heart, and explains something sitting very tight in the chest especially when walks. Patient states that stress test was done by Dr. Cordova and is negative, and does not want to do anything, but patient is still complaining of chest pain. Also patient deferred for right heart catheterization by Dr. Cuellar and Dr. Rafy Charles, and Dr. Benites. PAST MEDICAL HISTORY: Significant for pulmonary hypertension, morbid obesity, diabetes, hypertension, hyperlipidemia, chronic atrial fibrillation. CURRENT MEDICATIONS: Patient is taking acetaminophen 325 mg every 6 hours p.r.n.; atorvastatin 40 mg daily; Eliquis 2.5 mg b.i.d., last Eliquis in 2013; digoxin 0.125; montelukast/Singulair, Pepcid, omeprazole, metformin, Cardizem, losartan, and Lexapro. ALLERGIES: NO KNOWN DRUG ALLERGIES. RECENT CARDIAC WORKUP: As follows; patient had echocardiogram which shows ejection fraction 59%, right ventricular systolic pressure 53, moderate pulmonary hypertension. Patient had stress test Lexiscan done on 09/26/2017, which is negative. REVIEW OF SYSTEMS: As per HPI. PHYSICAL EXAMINATION: VITAL SIGNS: Height of the patient is 5 feet, weight of the patient is 234 pounds, body mass index 46 kg/m2. Rest of the examination is as follows; heart rate 80, blood pressure 134/86. HEENT: PERRLA. Extraocular muscles are intact. NECK: Supple. No carotid bruit or thyromegaly. CHEST: Clear to auscultation. HEART: S1 and S2 regular. ABDOMEN: Soft. EXTREMITIES: Clubbing and cyanosis negative. IMPRESSION: Recurrent chest pain, though stress test was normal, possibly false normal. Obesity, hypertension, hyperlipidemia, pulmonary hypertension, dyspnea on exertion. Last echocardiogram showed ejection fraction 59% with right ventricular systolic pressure of 53. History of bilateral breast cancer, status post mastectomy, on oral pills for cancer. RECOMMENDATIONS: Left and right heart catheterization. Further recommendations after cardiac catheterization. Last Eliquis dose was on 12/13/2017. We will follow with you. Thank you Dr. Munoz/Dr. Rafy Charles for providing us the opportunity in taking care of the patient, Lizzy Castanon. Martind MD Jason NEEL
[2017-12-16 08:01] LABS: BASO # 0.03 K/mm3 (0.0-2.0); BASO % 0.3 % (0.0-3.0); EOS # 0.3 (0.0-0.7); EOS % 3.2 % (1.5-5.0); GRAN # 6.02 (1.4-6.5); GRAN % 61.4 % (50.0-68.0); HEMOGLOBIN 13.7 g/dL (12.0-16.0); LYMPH # 2.7 (1.2-3.4); LYMPH % 27.8 % (22.0-35.0); MEAN CELL VOLUME 89.3 fl (80.0-105.0); MEAN CORPUSCULAR HEMOGLOBIN 29.8 pg (25.0-35.0); MEAN CORPUSCULAR HGB CONC 33.4 g/dl (31.0-37.0); MEAN PLATELET VOLUME 10.5 fl (7.0-11.0); MONO # 0.7 (0.1-0.6); MONO % 7.3 % (1.0-6.0); RBC 4.59 10^6/uL (3.5-6.1); RED CELL DISTRIBUTION WIDTH 15.8 % (11.5-14.5); WHITE BLOOD COUNT 9.8 10^3/ul (4.5-11.0)
[2017-12-16 08:12] LABS: INR 1.01 (0.93-1.08); PROTHROMBIN TIME 11.6 SECONDS (9.4-12.5)
[2017-12-16 08:13] LABS: PARTIAL THROMBOPLASTIN TIME 27.8 Seconds (25.1-36.5)
[2017-12-16 08:19] LABS: BLOOD UREA NITROGEN 20 mg/dL (7-21); CALCIUM 9.9 mg/dL (8.4-10.5); GFR AFRICAN-AMERICAN > 60; GFR NON-AFRICAN AMERICAN > 60; HDL CHOLESTEROL 41 mg/dL (29-60)
[2017-12-16 08:29] LABS: LDL CHOLESTEROL 109 mg/dL (0-129)
[2017-12-16 09:42] VITALS: RESP 18; TEMP 98.2
--- NOTE | 2017-12-16 10:13 | CPOSTOP ---
DATE: 12/16/2017 CARDIOVASCULAR CHARCOAL UNLOADER PROCEDURE POSTPROCEDURE NOTE DICTATING PHYSICIAN: Anthony Gomez MD. SPECIALTY MANUFACTURING SUPERVISOR: Tomás Mcginnis, painting technician. TYPE OF ANESTHESIA: Moderate conscious sedation. Total dose given 3 mg of Versed, 100 of fentanyl. Periodically started 1 mg of Versed, 50 of Fentanyl. PROCEDURE PERFORMED: Complete left and right heart catheterization. FINDINGS: Mild nonobstructive coronary artery disease, pulmonary hypertension. FINAL DIAGNOSES: Mild nonspecific coronary artery disease, pulmonary hypertension. POST PROCEDURE CONDITION: Postprocedure, the patient's condition is stable. VASCULAR ACCESS SITE: Right femoral groin. CLOSURE DEVICE: Angio-Seal on right femoral artery. Mynx on right femoral vein. TOTAL RADIATION DOSE: 7251.4 antonio Mckoy Unit. FLUORO TIME: 3.4 minutes. Anthony Gomez MD [facility]
--- NOTE | 2017-12-16 13:07 | CARD ---
APPROVED REPORT EKG Measurement Heart [id number] <Conclusion> Atrial fibrillation with rapid ventricular response Abnormal ECG
[2017-12-16 15:00] VITALS: BP 126/57; PULSE 92; O2SAT 94
--- NOTE | 2017-12-16 15:44 | CARD ---
APPROVED REPORT Procedure(s) performed: Complete Heart Catheterization HISTORY The patient is a 67 year-old female with a history of : most recent EF: 59%. (EF Method: Echocardiogram), previous cardiac transplant, peripheral vascular disease, diabetes mellitus with oral treatment , chronic lung disease, tobacco history() : The patient is a former smoker , hypertension , dyslipidemia , Morbid Obesity, SOPHY, Pulmonary HTN, ANA LUISA and chest pain( chest tightness). Hx of ch. afib on Eliquis at home.. INDICATION The indication(s) include : unstable angina , chest pain, atrial fibrillation, dyspnea. CASE TECHNIQUE The patient was brought electively to the Cardiac Catheterization Laboratory in a fasting state and was prepped and draped in a sterile manner. The right femoral groin was infiltrated with 2% Lidocaine subcutaneous anesthesia. A 6 Fr x 11 cm Alida sheath was inserted into the right femoral artery without difficulty. Coronary angiography was performed using coronary diagnostic catheters. The left coronary system was accessed and visualized with a Diagnostic , 6F JL4 CATH DXT 100 CM catheter. The right coronary system was accessed and visualized with a Diagnostic ,6F JR 4 CATH DXT 100 CM catheter. The left ventricle was accessed and visualized with a 6F PIGTAIL 145 CATH DXT 110 CM catheter. Left ventricular/Aortic Valve gradient assessed on pullback. Left ventriculogram was performed in ESTRADA projection. Pre-demployment femoral angiogram was performed . Closure device was deployed with a 6 Fr Angio-Seal without any complications. The patient tolerated the procedure well and there were no complications associated with the procedure. Vessel Analysis The patient's coronary anatomy is co-dominant. The left main coronary artery is a medium size vessel with diffuse calcification noted throughout this vessel and without significant stenosis. The left main bifurcates to the left anterior descending and circumflex. The left anterior descending artery is a medium size vessel with diffuse calcification noted throughout this vessel and without significant stenosis. There is a 40-50% stenosis in the mid segment. The first diagonal branch is a small size vessel with diffuse calcification noted throughout this vessel and without significant stenosis. The circumflex artery is a medium size vessel with diffuse calcification noted throughout this vessel and without significant stenosis. The first obtuse marginal branch is a medium size vessel with diffuse calcification noted throughout this vessel and without significant stenosis. The second obtuse marginal branch is a medium size vessel with diffuse calcification noted throughout this vessel and without significant stenosis. The left posterior descending artery is a medium size vessel with diffuse calcification noted throughout this vessel and without significant stenosis. The right coronary artery is a medium size vessel with diffuse calcification noted throughout this vessel and without significant stenosis. The right posterior descending artery is a small size vessel with diffuse calcification noted throughout this vessel and without significant stenosis. There is a 55% stenosis in the distal segment. diffusely diz, but no focal stenosis. The right posterolateral branch is a small size vessel with diffuse calcification noted throughout this vessel and without significant stenosis. Left Ventricle The left ventricle is bordrline in size with normal contractility. There was no cardiomyopathy. The left ventricular ejection fraction is estimated to be 55-60%. The left ventricular end diastolic pressure is 16-18 mmHg. Right Heart Cath Findings The Right Atrial Pressure is 12/12/11 mmHg. The Right Ventricular Pressure is 48/12 mmHg. The Pulmonary Artery Pressure is 48/20 mmHg. mean of 27 The Pulmonary Catheter Wedge Pressure is 12 mmHg. PVR 3.34 Wood units. The cardiac output and index were assessed using thermo dilution. The Cardiac Output is 4.48 L/min. The Cardiac index is 2.25 L/min/m2. Conclusion Non obstructive CAD, Distal R PDA diffusely [id number]% Preserved LV FX. EF-55-60%, CCV36-38 mmof Hg. RHC;RA-12,RV-48/12,PA-48/20 with men of 27 mmof Hg. PCW-12, CO-4.48, CI-2.25, PVR-3.34 rogers unit Recommendations Cardiac Rehabilitation Referral Aggressive Medical TherapyCardiac Risk Reduction Program Weight Loss Reduction Program Consider adding treatment for pulmonary HTN. Restart Metformin and Eliquis from am CC; Alexander Mitchell/ George/ Natanael Charles.
== END | disposition home or self-care (01) ==
LOC: CATH 07:23
PROVIDERS: ATTEND Internal Medicine Cardiovascular Disease
DX: I25.750 Atherosclerosis of native coronary artery of transplanted heart with unstable angina (principal); I48.2 Chronic atrial fibrillation; I10 Essential (primary) hypertension; E66.01 Morbid (severe) obesity due to excess calories; I27.20 Pulmonary hypertension, unspecified; E78.5 Hyperlipidemia, unspecified; E11.51 Type 2 diabetes mellitus with diabetic peripheral angiopathy without gangrene; Z68.42 Body mass index [BMI] 45.0-49.9, adult; Z87.891 Personal history of nicotine dependence; G47.33 Obstructive sleep apnea (adult) (pediatric); Z79.84 Long term (current) use of oral hypoglycemic drugs; Z79.01 Long term (current) use of anticoagulants; Z85.3 Personal history of malignant neoplasm of breast; Z90.13 Acquired absence of bilateral breasts and nipples; Z79.899 Other long term (current) drug therapy
CPT/HCPCS: 36415; 80048; 80061; 85025; 85610; 85730; 86850; 86900; 93005; 93460; 99152; 99153; C1760 ×2; C1769; C1894; C2629; J1644; J2250; J3010; J7030; J7040; Q9966

== ENCOUNTER 2018-09-12 15:34 | Outpatient (CLI) | payer MEDICARE | END 2018-09-12 15:35 | disposition home or self-care (01) | LOC: RAD 15:35 | DX: M25.561 Pain in right knee (principal); M25.562 Pain in left knee; E04.1 Nontoxic single thyroid nodule; R05 Cough ==

== ENCOUNTER 2018-10-24 13:14 | Inpatient (IN) | payer MEDICARE ==
--- NOTE | 2018-10-24 13:32 | ED PDOC ---
Arrival/HPI - General Chief Complaint: Shortness Of Breath Time Seen by Provider: 10/24/18 13:18 Historian: Patient - Critical Care Critical Care Minutes: 45 minutes - History of Present Illness Narrative History of Present Illness (Text): 10/24/18 13:34 68 y/o female with pmhx of A-fib, pulmonary hypertension, Asthma, sleep apnea, breast CA s/p mastectomy (2004,2016), who presents to the ED for shortness of breath since yesterday. Patient expresses difficulty speaking in full sentences secondary to shortness of breath. Patient states taking her asthma medication but denies taking any nebulizer treatments at home. Patient reports past admission for similar asthma exacerbation. Patient additionally states recent completion of antibiotics for viral URI illness. Patient denies chest pain, headache, dizziness, neck pain, or any other complaints. Also, patient has no history of intubation. PMD: Dr. Charles Oncologist: Dr. Benites Time/Duration: 24 hours Symptom Onset: Gradual Symptom Course: Worsening Context: Home Past Medical History - Provider Review Nursing Documentation Reviewed: Yes - Infectious Disease Hx of Infectious Diseases: None - Tetanus Immunization Tetanus Immunization: Unknown - Cardiac Hx Congestive Heart Failure: Yes Hx Pacemaker: No - Pulmonary Hx Respiratory Disorders: Yes (SMOKED CIGARETTES QUIT 20 YRS AGO.) Hx Asthma: Yes Hx Chronic Obstructive Pulmonary Disease (COPD): Yes Hx Sleep Apnea: Yes (CPAP) Other/Comment: FORMER SMOKER - Neurological Hx Paralysis: No - HEENT Hx HEENT Disorder: No - Renal Hx Renal Disorder: No - Endocrine/Metabolic Hx Endocrine Disorders: Yes Hx Hyperthyroidism: Yes - Hematological/Oncological Hx Blood Transfusions: No Hx Blood Transfusion Reaction: (NA) - Integumentary Hx Dermatological Disorder: Yes Other/Comment: TOTAL MASTECTOMY BILATERAL BREAST. ONE IN 2004 AND ONE 02-19-17 - Musculoskeletal/Rheumatological Hx Musculoskeletal Disorders: Yes - Gastrointestinal Hx Gastrointestinal Disorders: Yes (LAP BAND SX) Hx Gall Bladder Disease: Yes (CHOLECYSTECTOMY) Hx Gastroesophageal Reflux: Yes - Genitourinary/Gynecological Hx Genitourinary Disorders: No - Psychiatric Hx Emotional Abuse: No Hx Physical Abuse: No Hx Substance Use: No - Surgical History Hx Cholecystectomy: Yes Other/Comment: POST BILATERAL TOTAL MASTECTOMY. LEFT 2004,RIGHT 02-19-17. - Anesthesia Hx Anesthesia Reactions: No Hx Malignant Hyperthermia: No - Suicidal Assessment Feels Threatened In Home Enviroment: No Family/Social History - Physician Review Nursing Documentation Reviewed: Yes Family/Social History: Unknown Family HX Smoking Status: Former Smoker Hx Alcohol Use: No Hx Substance Use: No Hx Substance Use Treatment: No Allergies/Home Meds Allergies/Adverse Reactions: Allergies No Known Allergies Allergy (Verified 10/24/18 14:08) Home Medications: Home Meds Medication Instructions Recorded Confirmed Acetaminophen [Tylenol 325mg tab] 325 mg PO PRN PRN 12/13/17 12/16/17 Acetaminophen/Butalbital/Caf 1 tab PO PRN PRN 12/13/17 12/16/17 [Fioricet] Apixaban [Eliquis] 2.5 mg PO BID 12/13/17 12/16/17 Atorvastatin [Lipitor] 40 mg PO HS 12/13/17 12/16/17 Digoxin [Lanoxin] 0.125 mg PO QAM 12/13/17 12/16/17 Dulaglutide [Trulicity] 1.5 mg SC MON 12/13/17 12/16/17 Ergocalciferol (Vitamin D2) 50,000 unit PO TUE 12/13/17 12/13/17 [Vitamin D2] Escitalopram [Lexapro] 10 mg PO QAM 12/13/17 12/16/17 Esomeprazole Magnesium [Nexium] 40 mg PO QAM 12/13/17 12/16/17 Famotidine [Pepcid] 20 mg PO DAILY 12/13/17 12/16/17 Levocetirizine Dihydrochloride 5 mg PO DAILY PRN 12/13/17 12/16/17 [Xyzal] Losartan [Cozaar] 100 mg PO QAM 12/13/17 12/16/17 Montelukast [Singulair] 10 mg PO HS 12/13/17 12/16/17 Omeprazole 40 mg PO HS 12/13/17 12/16/17 Vitamins 50+ Packet 1 packet PO DAILY 12/13/17 12/16/17 [id number] CD [Cardizem CD] 180 mg PO BID 12/13/17 12/16/17 MetFORMIN ER [Glucophage XR] 750 mg PO DAILY 12/16/17 12/16/17 Ambrisentan [Letairis] 5 mg PO 04/21/18 Fluticasone/Umeclidin/Vilanter 1 each IH 04/21/18 [Trelegy Ellipta 100-62.5-25] GlipiZIDE [Glucotrol] 5 mg PO TID 04/21/18 04/21/18 clonazePAM [Klonopin] 0.5 mg PO 04/21/18 Review of Systems - Physician Review All systems were reviewed & negative as marked: Yes - Review of Systems Respiratory: SOB Cardiovascular: absent: Chest Pain Neurological: absent: Headache Physical Exam - Physical Exam Narrative Physical Exam (Text): 10/24/18 13:46 Constitutional: Distress secondary to shortness of breath. Head: Normocephalic. Atraumatic. Eyes: PERRL. ENT: Moist mucous membranes. Neck: Supple. Cardiovascular: Regular rate. Chest: No tenderness. Respiratory: Tachypneic, speaking in short sentences. Clear to auscultation bilaterally. GI: Soft. Nontender. Nondistended. Back: No CVA tenderness. Musculoskeletal: No tenderness. Bilateral pitting edema. Skin: No rash. Neurologic: Alert, no focal deficit. Vital Signs Reviewed: Yes Temperature: Afebrile Blood Pressure: Normal Pulse: Regular Respiratory Rate: Tachypneic Appearance: Positive for: Well-Appearing, Non-Toxic, Uncomfortable Pain Distress: Moderate Mental Status: Positive for: Alert and Oriented X 3 Medical Decision Making ED Course and Treatment: 10/24/18 13:49 Impression: 68 year old female who presents to the ED c/o shortness of breath. Plan: -- ABG -- EKG --Labs --Chest X-ray --Duoneb --Solu-Medrol -- Reassess and disposition Prior Visits: Notes and results from previous visits were reviewed. Progress Notes: 10/24/18 13:52 EKG Reviewed, shows A-fib @ 127 bpm, no ST/T wave changes. 10/24/18 15:28 CXR reviewed, shows no active disease. No significant interval changes compared to prior examinations. 10/24/18 15:[address] Drew. who is aware and agrees with ED management plan, accepts patient under her service. Requests CTA. - Critical Care Critical Care Minutes: 45 minutes - RAD Interpretation Radiology Orders: 10/24/18 13:30 CHEST PORTABLE [RAD] Stat Stencil Sprayer: Radiologist - Medication Orders Current Medication Orders: Albuterol/Ipratropium (Duoneb 3 Mg/0.5 Mg (3 Ml) Ud) 3 ml IH Q15MIN KARINA Stop: 10/26/18 13:31 Methylprednisolone (Solu-Medrol) 125 mg IVP STAT STA Stop: 10/24/18 13:31 - Scribe Statement The provider has reviewed the documentation as recorded by the Maykel mccoy with Marce. All medical record entries made by the Katinaibe were at my direction and personally dictated by me. I have reviewed the chart and agree that the record accurately reflects my personal performance of the history, physical exam, medical decision making, and the department course for this patient. I have also personally directed, reviewed, and agree with the discharge instructions and disposition. Disposition/Present on Arrival - Present on Arrival Any Indicators Present on Arrival: No History of DVT/PE: No History of Uncontrolled Diabetes: No Urinary Catheter: No History Surgical Site Infection Following: None - Disposition Have Diagnosis and Disposition been Completed?: Yes Diagnosis: Asthma exacerbation, Pulmonary hypertension Disposition: HOSPITALIZED Disposition Time: 15:45 Patient Plan: Admission, Telemetry Condition: GUARDED Referrals: Rafy Charles MD [Primary Care Provider] - Follow up with primary Forms: [employer] ([place])
[2018-10-24] MEDS: Albuterol-Ipratrop 3 mg / 0.5 (3 ml) UD IH SCH ×3 (13:40→20:43)
[2018-10-24] MEDS ORDERED: Albuterol-Ipratrop 3 mg / 0.5 (3 ml) UD ONE (13:56)
[2018-10-24 14:16] LABS: ARTERIAL BLOOD GAS HCO3 27.3 mmol/L (21-28); ARTERIAL BLOOD GAS O2 CAPACITY 16.4 mL/dl (16-24); ARTERIAL BLOOD GAS O2 CONTENT 15.8 ML/dl (15-23); ARTERIAL BLOOD GAS O2 SAT 96.5 % (95-98); ARTERIAL BLOOD GAS PCO2 35 mm/Hg (35-45); ARTERIAL BLOOD GAS TCO2 28.4 mmol.L (22-28)
[2018-10-24 14:54] LABS: ALB/GLOB RATIO 1.4 (1.1-1.8); ALBUMIN 4.2 g/dL (3.0-4.8); ALT/SGPT 15 U/L (7-56); AST/SGOT 30 U/L (14-36); BLOOD UREA NITROGEN 19 mg/dL (7-21); CALCIUM 9.6 mg/dL (8.4-10.5); GFR NON-AFRICAN AMERICAN > 60
[2018-10-24 15:05] LABS: B-TYPE NATRIURETIC PEPTIDE 258 pg/mL (0-450); TROPONIN I < 0.01 ng/mL
[2018-10-24 15:06] LABS: INR 1.31; PARTIAL THROMBOPLASTIN TIME 35.1 Seconds (26.9-38.3); PROTHROMBIN TIME 14.5 SECONDS (9.4-12.5)
[2018-10-24 15:12] LABS: D DIMER < 200 ng/mlDDU (0-243)
--- NOTE | 2018-10-24 15:25 | RAD ---
Date of service: 10/24/2018 HISTORY: Dyspnea. COMPARISON: 09/12/2018. FINDINGS: LUNGS: No active pulmonary disease. PLEURA: No significant pleural effusion identified, no pneumothorax apparent. CARDIOVASCULAR: Atherosclerotic calcifications identified primarily aortic arch. No radiographic findings to suggest acute or significant cardiovascular disease. OSSEOUS STRUCTURES: No significant abnormalities. VISUALIZED UPPER ABDOMEN: Normal. OTHER FINDINGS: None. IMPRESSION: No active disease. No significant interval change compared to the prior examination(s).
--- NOTE | 2018-10-24 17:15 | CARD ---
APPROVED REPORT Date of service: 10/24/2018 EKG Measurement Heart [id number] <Conclusion> Atrial fibrillation with rapid ventricular response Abnormal ECG
--- NOTE | 2018-10-24 17:54 | CT ---
Date of service: 10/24/2018 CTA chest PE protocol Indication: dyspnea, h/o cancer, r/o PE Technique: Contiguous axial images were obtained through the chest with intravenous contrast enhancement. Sagittal and coronal reconstructions were generated and reviewed. This CT exam was performed using 1 or more of the following dose reduction techniques: Automated exposure control, adjustment of the MAA and/or kV according to patient size, and/or use of iterative reconstruction technique. IV contrast: 150 mL Omnipaque 350 IV Radiation dose (DLP): 439.99 MGy-cm. Comparison: Chest x-ray performed 10/24/18, CTA chest performed 04/20/18 Findings: Partially imaged thyroid gland demonstrates enlarged heterogeneous right and diminutive left thyroid gland with bilateral calcifications. The mediastinal and hilar vascular structures appear within normal limits. Cardiomegaly. No large central or segmental pulmonary embolus evident. No focal consolidation. No pleural effusion. No pneumothorax. Multiple small nodular opacities measuring approximately 4 mm and below Limited visualized portions of the upper abdomen appear grossly unremarkable. The patient has undergone bilateral mastectomy with right breast prosthesis present. Osseous demineralization. Multilevel degenerative changes. Kyphosis. Impression: No large central or segmental pulmonary embolus identified. Numerous scattered pulmonary nodules measuring up to 4 mm; according to the 2017 Fleischner criteria, the patient is high risk, an optional CT at 12 months is recommended. Status post bilateral mastectomy with right breast prosthesis present. Partially imaged thyroid gland demonstrates enlarged heterogeneous right and diminutive left thyroid gland with bilateral calcifications.
--- NOTE | 2018-10-24 18:02 | CP.PCM.CON ---
History of Present Illness - History of Present Illness History of Present Illness: Gopal Benson DO, PGY-1 Hematology/Oncology Consult Note for Dr. Benites Consult Requested by Dr. Jaime, Dr. Drew CC: SOB, wheezing HPI: Patient is a 68 year old female with PMH of osteoporosis (on prolia), pHTN, HTN, HLD, AFib (on eliquis), DM2, chronic low back pain, and L sided intra- ductal carcinoma (s/p L mastectomy in 2004, s/p chemo/XRT and s/p patient preference R mastectomy in 2017) presented to [facility] ED with a complaint of worsening dyspnea. She states that it has been difficult to speak in full sentences secondary to dyspnea. She states the dyspnea is worse with exertion and improves with rest. She reports recently completing a course of abx for bronchitis. She reports having to use her rescue inhaler more frequently and that it is not helping. She otherwise denies fever/chills, CP, abd pain/nausea /vomiting, or urinary complaints. 12 point ROS otherwise negative except as specified above. PMD: Dr. Charles Past Medical History: osteoporosis (on prolia), pHTN, HTN, HLD, AFib (on eliquis), DM2, chronic low back pain, and L sided intra-ductal carcinoma (s/p L mastectomy in 2004, s/p chemo/XRT and s/p patient preference R mastectomy in 2017) Past Surgical History: L mastectomy 2004, patient preference R mastectomy 2017 Allergies: NKA Home medications: Lipitor, metformin, lasix, glipizide, singulair, eliquis, losartan, klonopin, vitamin D, digoxin, diltiazem Family History: mother had stomach CA, brother has renal cell CA Social History: admits to prior smoking history approximately 1/2 PPD but quit > 10 years ago, denies EtOH, denies illicit drug use, 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 Past Patient History - Infectious Disease Hx of Infectious Diseases: None - Tetanus Immunizations Tetanus Immunization: Unknown - Past Social History Smoking Status: Former Smoker - CARDIAC Hx Congestive Heart Failure: Yes Hx Pacemaker: No - PULMONARY Hx Respiratory Disorders: Yes (SMOKED CIGARETTES QUIT 20 YRS AGO.) Hx Asthma: Yes Hx Chronic Obstructive Pulmonary Disease (COPD): Yes Hx Sleep Apnea: Yes (CPAP) Other/Comment: FORMER SMOKER - NEUROLOGICAL Hx Paralysis: No - HEENT Hx HEENT Problems: No - RENAL Hx Chronic Kidney Disease: No - ENDOCRINE/METABOLIC Hx Endocrine Disorders: Yes Hx Hyperthyroidism: Yes - HEMATOLOGICAL/ONCOLOGICAL Hx Blood Transfusions: No Hx Blood Transfusion Reaction: (NA) - INTEGUMENTARY Hx Dermatological Problems: Yes Other/Comment: TOTAL MASTECTOMY BILATERAL BREAST. ONE IN 2004 AND ONE 02-19-17 - MUSCULOSKELETAL/RHEUMATOLOGICAL Hx Musculoskeletal Disorders: Yes - GASTROINTESTINAL Hx Gastrointestinal Disorders: Yes (LAP BAND SX) Hx Gall Bladder Disease: Yes (CHOLECYSTECTOMY) Hx Gastroesophageal Reflux: Yes - GENITOURINARY/GYNECOLOGICAL Hx Genitourinary Disorders: No - PSYCHIATRIC Hx Emotional Abuse: No Hx Physical Abuse: No Hx Substance Use: No - SURGICAL HISTORY Hx Cholecystectomy: Yes Other/Comment: POST BILATERAL TOTAL MASTECTOMY. LEFT 2004,RIGHT 02-19-17. - ANESTHESIA Hx Anesthesia Reactions: No Hx Malignant Hyperthermia: No Meds Allergies/Adverse Reactions: Allergies Allergy/AdvReac Type Severity Reaction Status Date / Time No Known Allergies Allergy Verified 10/24/18 14:08 - Medications Medications: Current Medications Albuterol/Ipratropium (Duoneb 3 Mg/0.5 Mg (3 Ml) Ud) 3 ml IH Q15MIN KARINA Stop: 10/26/18 13:31 Last Admin: 10/24/18 14:19 Dose: 3 ml Physical Exam - Constitutional Appears: Non-toxic, No Acute Distress - Head Exam Head Exam: ATRAUMATIC, NORMOCEPHALIC - Eye Exam Eye Exam: EOMI, PERRL - ENT Exam ENT Exam: Mucous Membranes Moist - Neck Exam Neck exam: Positive for: Full Rom, Normal Inspection - Respiratory Exam Respiratory Exam: Wheezes (end expiratory wheezes b/l). absent: Accessory Muscle Use, Rales, Rhonchi, Respiratory Distress - Cardiovascular Exam Cardiovascular Exam: REGULAR RHYTHM, RRR, +S1, +S2. absent: Diastolic murmur, Gallop, Rubs, Systolic Murmur - GI/Abdominal Exam GI & Abdominal Exam: Normal Bowel Sounds. absent: Guarding, Rebound, Tenderness - Extremities Exam Extremities exam: Positive for: full ROM. Negative for: pedal edema - Back Exam Back exam: NORMAL INSPECTION - Neurological Exam Neurological exam: Alert, Oriented x3 - Psychiatric Exam Psychiatric exam: Normal Affect, Normal Mood - Skin Skin Exam: Dry, Intact, Warm Results - Vital Signs Recent Vital Signs: Last Vital Signs Temp 97.8 F 10/24/18 13:25 Pulse 104 H 10/24/18 17:43 Resp 20 10/24/18 17:43 BP 123/59 L 10/24/18 17:43 Pulse Ox 92 L 10/24/18 17:43 - Labs Result Diagrams: 10/24/18 14:35 Labs: Laboratory Results - last 24 hr 10/24/18 10/24/18 10/24/18 14:00 14:35 14:35 PT 14.5 H INR 1.31 APTT 35.1 D-Dimer, Quantitative < 200 pCO2 35 pO2 72.0 L HCO3 27.3 ABG pH 7.50 H ABG Total CO2 28.4 H ABG O2 Saturation 96.5 ABG O2 Content 15.8 ABG Base Excess 4.1 H ABG Hemoglobin 12.0 ABG Carboxyhemoglobin 1.9 H POC ABG HHb (Measured) 3.4 ABG Methemoglobin 1.3 ABG O2 Capacity 16.4 Hgb O2 Saturation 93.4 L FiO2 28.0 Sodium 140 Potassium 3.6 Chloride 104 Carbon Dioxide 27 Anion Gap 13 BUN 19 Creatinine 0.5 L Est GFR ( Amer) > 60 Est GFR (Non-Af Amer) > 60 Random Glucose 110 Calcium 9.6 Phosphorus 4.7 H Magnesium 1.3 L Total Bilirubin 0.4 AST 30 ALT 15 Alkaline Phosphatase 49 Total Creatine Kinase 76 Troponin I < 0.01 NT-Pro-B Natriuret Pep 258 Total Protein 7.1 Albumin 4.2 Globulin 3.0 Albumin/Globulin Ratio 1.4 Influenza Typ A,B (EIA) 10/24/18 14:35 PT INR APTT D-Dimer, Quantitative pCO2 pO2 HCO3 ABG pH ABG Total CO2 ABG O2 Saturation ABG O2 Content ABG Base Excess ABG Hemoglobin ABG Carboxyhemoglobin POC ABG HHb (Measured) ABG Methemoglobin ABG O2 Capacity Hgb O2 Saturation FiO2 Sodium Potassium Chloride Carbon Dioxide Anion Gap BUN Creatinine Est GFR ( Amer) Est GFR (Non-Af Amer) Random Glucose Calcium Phosphorus Magnesium Total Bilirubin AST ALT Alkaline Phosphatase Total Creatine Kinase Troponin I NT-Pro-B Natriuret Pep Total Protein Albumin Globulin Albumin/Globulin Ratio Influenza Typ A,B (EIA) Negative for flu a/b Assessment & Plan - Assessment and Plan (Free Text) Assessment: 68 yo F with PMH of osteoporosis (on prolia), pHTN, HTN, HLD, AFib (on eliquis), DM2, chronic low back pain, and L sided intra-ductal carcinoma (s/p L mastectomy in 2004, s/p chemo/XRT and s/p patient preference R mastectomy in 2017) admitted for dyspnea likely 2/2 asthma exacerbation and/or pulmonary HTN. Plan: Dyspnea Suspect most likely 2/2 asthma exacerbation and/or underlying pHTN CTA chest completed in ED showed no PE However, new lung nodules were noted Will continue to follow these lung nodules regularly on outpatient basis as patient is at high risk of recurrence Low suspicion that malignancy is contributing to patient's current symptoms Recommend optimal medical management Recommend pulmonology consult for additional recs L IDC s/p L mastectomy No evidence of recurrent disease on prior outpatient visits Have been following since 2004 Will continue to monitor new lung nodules identified on CTA chest on outpatient basis Recommend continuing home eliquis for hx of AFib Thank you for this consult. We will continue to follow. Patient seen, examined with, and plan discussed with my attending Dr. Kamari Benson, GrantO. IM Resident PGY-1
[2018-10-24] MEDS ORDERED: Albuterol-Ipratrop 3 mg / 0.5 (3 ml) UD IH PRN (19:21)
[2018-10-24] MEDS: Arformoterol 15 mcg/2 ml Inh Sol IH SCH (20:42)
[2018-10-24] MEDS: Budesonide 0.5 mg/2 ml Inhal Susp UD IH SCH (20:43)
[2018-10-24] MEDS: MethylPREDNISolone 40 mg Vial IV SCH (21:42)
[2018-10-24] MEDS ORDERED: Magnesium Sulfate 1 gm in D5W 1 GM/100 ML BAG IVPB ONE (22:23)
[2018-10-24 23:40] LABS: BASO # 0.05 K/mm3 (0.0-2.0); BASO % 0.7 % (0.0-3.0); EOS # 0.2 (0.0-0.7); EOS % 2.3 % (1.5-5.0); HEMOGLOBIN 12.2 g/dL (12.0-16.0); LYMPH % 29.8 % (22.0-35.0); MEAN CELL VOLUME 90.2 fl (80.0-105.0); MEAN CORPUSCULAR HEMOGLOBIN 28.5 pg (25.0-35.0); MEAN CORPUSCULAR HGB CONC 31.6 g/dl (31.0-37.0); MEAN PLATELET VOLUME 12.1 fl (7.0-11.0); MONO # 0.5 (0.1-0.6); MONO % 7.3 % (1.0-6.0); RBC 4.28 10^6/uL (3.5-6.1); RED CELL DISTRIBUTION WIDTH 17.2 % (11.5-14.5); WHITE BLOOD COUNT 6.8 10^3/uL (4.5-11.0)
--- NOTE | 2018-10-24 23:40 | CP.PCM.PCO ---
Physician Communication Note - Physician Communication Note Physician Communication Note: Patient states only takes 0.5 klonopin - 0.5 mg evening dose given once
--- NOTE | 2018-10-25 00:01 | HP ---
DATE OF EXAM: 10/24/2018 HISTORY OF PRESENT ILLNESS: The patient is a 68-year-old came to the emergency room because of worsening shortness of breath and chest tightness. She is unable to speak in full sentence. The patient complain of cough and congestion, has been using a rescue inhaler with no significant relief. No history of fever or chills. No nausea or vomiting. No diarrhea. PAST MEDICAL HISTORY: Significant for: 1. Hypertension. 2. Hyperlipidemia. 3. Chronic AFib, on Eliquis. 4. Noninsulin-dependent diabetes. 5. Degenerative disk disease. 6. Left intraductal carcinoma, status post mastectomy in 2014. 7. Status post chemo and radiation, status post right mastectomy in 2017. ALLERGIES: SHE IS NOT ALLERGIC TO ANY MEDICATION. MEDICATIONS AT HOME: She is on metformin, Adempas, Singulair, gabapentin, atorvastatin, Klonopin, Demodex, Lexapro, glipizide, Eliquis, losartan, diltiazem, and digoxin. SOCIAL HISTORY: Used to be heavy smoker, but quit 20 years ago. PHYSICAL EXAMINATION: GENERAL: She is awake and alert, able to communicate. VITAL SIGNS: She is afebrile, pulse 98, respirations 20, and blood pressure 106/59. LUNGS: Bilateral rhonchi. HEART: S1 and S2 audible, irregular, rate controlled. ABDOMEN: Soft and nontender. No rebound. No guarding. NEUROLOGIC: The patient is awake and alert, able to communicate. LABORATORY DATA: PT 14.5 and INR 1.31. Chemistry; sodium 140, potassium 3.6, chloride 104, CO2 of 27, BUN 19, creatinine 0.5, blood sugar 110, phosphorous 2.7, and magnesium 1.3. LFTs are within normal limits. Flu test is negative. She has CT angio done, no PE noted, numerous scattered pulmonary nodule measuring up to 4 mm according to 2017 criteria. The patient has HIDA scan status post bilateral mastectomy and right breast implant. ASSESSMENT: 1. Dyspnea. 2. History of chronic obstructive pulmonary disease. 3. Atrial fibrillation. 4. Hypertension. 5. Hyperlipidemia. 6. Peptic ulcer disease. 7. Bronchospasm. 8. Chronic anemia. 9. History of carcinoma of breast, status post bilateral mastectomy. 10. History of depression. 11. Morbid obesity. 12. Noninsulin-dependent diabetes. PLAN: The patient will be admitted on telemetry. We will start her on IV steroids. We will start her on nebulizer treatment. We will resume her medications. We will monitor her blood sugar. We will resume her medication. We will follow up the patient in a.m. Nabeel Drew MD
[2018-10-25] MEDS: Albuterol-Ipratrop 3 mg / 0.5 (3 ml) UD IH SCH (01:55)
[2018-10-25] MEDS: Arformoterol 15 mcg/2 ml Inh Sol IH SCH (07:55)
[2018-10-25] MEDS: Budesonide 0.5 mg/2 ml Inhal Susp UD IH SCH ×2 (07:55→20:24)
--- NOTE | 2018-10-25 08:57 | CP.PCM.PN ---
Subjective - Date & Time of Evaluation Date of Evaluation: 10/25/18 Time of Evaluation: 07:00 - Subjective Subjective: Gopal Benson DO, PGY-1 Hematology/Oncology Progress Note for Dr. Benites Patient was seen and examined at bedside this AM. She offers no new complaints and states she is feeling less short of breath. Objective - Vital Signs/Intake and Output Vital Signs (last 24 hours): Temp Pulse Resp BP Pulse Ox 98 F 101 H 20 93/61 L 93 L 10/25/18 06:00 10/25/18 06:00 10/25/18 06:00 10/25/18 06:00 10/25/18 06:00 Intake and Output: 10/25/18 10/25/18 06:59 18:59 Intake Total 200 Output Total 0 Balance 200 - Medications Medications: Current Medications Albuterol/Ipratropium (Duoneb 3 Mg/0.5 Mg (3 Ml) Ud) 3 ml IH Q15MIN [facility] Stop: 10/26/18 13:31 Last Admin: 10/24/18 14:19 Dose: 3 ml Albuterol/Ipratropium (Duoneb 3 Mg/0.5 Mg (3 Ml) Ud) 3 ml IH Q2H PRN PRN Reason: Shortness of Breath Albuterol/Ipratropium (Duoneb 3 Mg/0.5 Mg (3 Ml) Ud) 3 ml IH [id number] [facility] Last Admin: 10/25/18 01:55 Dose: Not Given Apixaban (Eliquis) 2.5 mg PO BID [facility]; Protocol Arformoterol Tartrate (Brovana) 15 mcg IH [id number] [facility] Last Admin: 10/25/18 07:55 Dose: 15 mcg Atorvastatin Calcium (Lipitor) 40 mg PO HS [facility] Last Admin: 10/24/18 21:42 Dose: 40 mg Budesonide (Pulmicort Respules) 0.5 mg IH [id number] [facility] Last Admin: 10/25/18 07:55 Dose: 0.5 mg Clonazepam (Klonopin) 1 mg PO BID PRN; Protocol PRN Reason: Anxiety Digoxin (Digoxin) 0.125 mg PO 1400 [facility] Diltiazem HCl (Cardizem Cd) 180 mg PO DAILY [facility] Escitalopram Oxalate (Lexapro) 10 mg PO DAILY [facility] Gabapentin (Neurontin) 200 mg PO BID [facility]; Protocol Glipizide (Glucotrol) 5 mg PO ACB [facility] Last Admin: 10/25/18 08:41 Dose: 5 mg Losartan Potassium (Cozaar) 100 mg PO DAILY [facility] Metformin HCl (Glucophage) 500 mg PO BID [facility] Last Admin: 10/24/18 21:42 Dose: 500 mg Methylprednisolone (Solu-Medrol) 40 mg IV Q12 [facility] Last Admin: 10/24/18 21:42 Dose: 40 mg Montelukast Sodium (Singulair) 10 mg PO HS [facility] Last Admin: 10/24/18 21:41 Dose: 10 mg Non-Formulary Medication (Riociguat [Adempas]) 1 tab PO TID [facility] - Labs Labs: 10/24/18 13:29 10/24/18 14:35 PT 14.5 SECONDS (9.4-12.5) H 10/24/18 14:35 INR 1.31 10/24/18 14:35 APTT 35.1 Seconds (26.9-38.3) 10/24/18 14:35 - Constitutional Appears: Non-toxic, No Acute Distress - Head Exam Head Exam: ATRAUMATIC, NORMOCEPHALIC - Eye Exam Eye Exam: EOMI, PERRL - ENT Exam ENT Exam: Mucous Membranes Moist - Neck Exam Neck Exam: Full ROM, Lymphadenopathy (R supraclavicular nodes palpated) - Respiratory Exam Respiratory Exam: Wheezes (faint end expiratory wheezes b/l improved). absent: Rales, Rhonchi - Cardiovascular Exam Cardiovascular Exam: REGULAR RHYTHM, RRR, +S1, +S2. absent: Gallop, Rubs, Murmur - GI/Abdominal Exam GI & Abdominal Exam: Soft, Normal Bowel Sounds. absent: Guarding, Tenderness - Extremities Exam Extremities Exam: Full ROM, Normal Inspection. absent: Pedal Edema - Back Exam Back Exam: NORMAL INSPECTION - Neurological Exam Neurological Exam: Alert, Awake, Oriented x3 - Psychiatric Exam Psychiatric exam: Normal Affect, Normal Mood - Skin Skin Exam: Dry, Intact, Warm Assessment and Plan - Assessment and Plan (Free Text) Assessment: 68 yo F with PMH of osteoporosis (on prolia), pHTN, HTN, HLD, AFib (on eliquis), DM2, chronic low back pain, and L sided intra-ductal carcinoma (s/p L mastectomy in 2005, s/p chemo/XRT and s/p patient preference R mastectomy in 2017) admitted for dyspnea likely 2/2 asthma exacerbation and/or pulmonary HTN. 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 Benites has been following since 2004 Recommend continuing home eliquis for hx of AFib Thyroid Mass Identified on prior thyroid US Will need biopsy, given history Imaging reviewed by Dr. Russell and case discussed, will get CT neck w/contrast to further characterize lesion prior to biopsy Thank you for this consult. We will continue to follow. Patient seen, examined with, and plan discussed with my attending Dr. Kamari Benson D.O. IM Resident PGY-1
[2018-10-25] MEDS: MethylPREDNISolone 40 mg Vial IV SCH ×2 (09:15→21:34)
[2018-10-25] MEDS: diltiaZEM 180 mg/24 Hours CD Cap PO SCH (09:17)
[2018-10-25] MEDS ORDERED: diltiaZEM 180 mg/24 Hours CD Cap PO SCH (10:00)
[2018-10-25] MEDS ORDERED: RIOCIGUAT PO SCH (10:00)
[2018-10-25] MEDS ORDERED: Digoxin 125 mcg (0.125 mg) Tab PO SCH (10:00)
[2018-10-25] MEDS ORDERED: Levalbuterol 0.63 MG/3 ML Inhal Soln UD IH PRN (12:19)
[2018-10-25] MEDS: Ipratropium 0.02% Inhal Soln (0.5 mg/2.5 ml) UD IH SCH ×2 (13:46→20:24)
--- NOTE | 2018-10-25 13:49 | CON ---
DATE: 10/25/2018 PULMONARY CONSULTATION NOTE REFERRING PHYSICIAN: Nabeel Drew MD REASON FOR CONSULTATION: Asthma exacerbation, pulmonary hypertension, sleep apnea, shortness of breath and cough. HISTORY OF PRESENT ILLNESS: This is a 68-year-old female with past medical history consistent for atrial fibrillation, pulmonary hypertension, asthma, sleep apnea, breast cancer status post mastectomy, who presented to the emergency room complaining of shortness of breath, stated that she while in the emergency room that she was having difficulty speaking in full sentences secondary to shortness of breath. The patient reported at that time that she took her asthma medication, but did not take any nebulizer treatments at home. The patient also reports to recently completing antibiotic therapy for viral upper respiratory infection. Today the patient is seen sitting in armchair in room, states shortness of breath is much better, but she does still get shortness of breath with exertion, still has occasional dry cough. PAST MEDICAL HISTORY: Hypertension, hyperlipidemia, chronic AFib on Eliquis, non-insulin dependent diabetes, degenerative disc disease, left intraductal carcinoma, status post mastectomy, status post chemotherapy and radiation, status post right mastectomy in 2016 and left mastectomy in 2004. The patient also had chemotherapy and radiation after left mastectomy. Osteoporosis and chronic lower back pain. ALLERGIES: NO KNOWN DRUG ALLERGIES. SOCIAL HISTORY: Former heavy smoker quit 20 years ago. No EtOH abuse. No illicit drug use. FAMILY HISTORY: No significant cardiopulmonary disease reported. MEDICATIONS: DuoNeb 3 mL inhalation every 15 minutes, DuoNeb 3 ml inhalation every 2 hours p.r.n., DuoNeb 3 mL inhalation every 6 hours, Eliquis 2.5 mg twice a day, Brovana 15 mcg every 12 hours, Lipitor 40 mg at bedtime, Pulmicort 0.5 mg inhalation every 12 hours, Klonopin 0.5 mg twice a day p.r.n., digoxin 0.125 mg daily, Cardizem 180 mg daily, Lexapro 10 mg daily, Neurontin 200 mg twice a day, glipizide 5 mg in the morning, Cozaar 100 mg daily, metformin 500 mg twice a day, Solu-Medrol 40 mg every 12 hours, Singulair 10 mg at bedtime and Adempas one tablet 3 times a day. REVIEW OF SYSTEMS: No headache, rhinitis, chest pain, abdominal pain, nausea, vomiting, diarrhea or leg pain reported. The patient does report getting shortness of breath with exertion, but states that shortness of breath has improved since yesterday. Reports dry cough. Reports swelling to bilateral lower extremities. PHYSICAL EXAMINATION: GENERAL: No acute distress. HEENT: Moist mucous membranes. NECK: Supple. No JVD. CARDIOVASCULAR: S1 and S2 irregular. RESPIRATORY: Few scattered rhonchi bilaterally. ABDOMEN: Soft and nontender. No distention. No organomegaly. EXTREMITIES: Trace bilateral lower extremity edema. NEUROLOGIC: Awake, alert and verbal, able to follow commands. LABORATORY DATA: Reviewed. WBC 6.8, RBC 4.28, hemoglobin 12.2, hematocrit 38.6, and platelets 216. PT 14.5, INR 1.31 and APTT 35.1. D-dimer less than 200. PCO2 of 35, PO2 of 72, HCO3 of 27.3, ABG pH 7.50 on FiO2 of 28. Sodium 140, potassium 3.6, chloride 104, carbon dioxide 27, anion gap 13, BUN 19, creatinine 0.5, GFR greater than 60, POC glucose 226, random glucose 110, calcium 9.6, phosphorous 4.7, magnesium 1.3, total bilirubin 0.4, AST 30, ALT 15, alkaline phosphatase 49, total creatine kinase 76, troponin less than 0.01, proBNP 258, total protein 7.1, albumin 4.2, globulin 3.0 and albumin-globulin ratio 1.4. Influenza type A and B negative. EKG shows atrial fibrillation on rapid ventricular response. Chest x-ray showed no active disease. Chest CT showed no large central or subsegmental pulmonary embolism, numerous scattered pulmonary nodules measuring up to 4 mm, status post bilateral mastectomy with right breast prosthesis present. Partially thyroid gland demonstrates enlarged heterogeneous right and diminutive left thyroid gland with bilateral calcifications. IMPRESSION AND PLAN: Asthma exacerbation, sleep apnea syndrome, pulmonary hypertension, atrial fibrillation with rapid ventricular response on Eliquis, diabetes mellitus, hypertension and hyperlipidemia. The patient with history of breast cancer with chemotherapy and radiation in the past. CAT scan showing scattered pulmonary nodules which may be radiation induced pneumonitis, may be inflammatory process, cannot rule out malignancy, will need followup CAT scan in 3 to 4 months. We will order procalcitonin level to be done. We will place the patient on Protonix for gastric prophylaxis. The patient currently on anticoagulation therapy. We will order echocardiogram to test pulmonary hypertension. Continue Hematology and Oncology followup. Agree with inhaled bronchodilators, steroids, leukotriene inhibitors, fall precautions. Continue continuous positive airway pressure use at bedtime, sleep apnea precaution, head of bed elevated at 45 degrees. The patient is using her own continuous positive airway pressure from home which is set at 9 cm. Nursing staff and the patient reports that she lost her pulmonary hypotension medication Adempas, but the patient reports that she called her pharmacy who will be delivering the medication and she will have a family member or friend deliver the medication to her either tonight or tomorrow. The patient reports that she has been taking medications for the last 2 weeks. We will stop DuoNeb and Brovana as the patient showing atrial fibrillation on EKG. We will place the patient on Xopenex and Atrovent nebulizer treatments. This patient was seen and examined with Dr. Holloway. Discussed assessment and plan as described above. This patient was seen and examined by Kevin Randolph, nurse practitioner. Discussed assessment and plan as described above. Thank you for this consult and we will follow with you. Kevin Randolph APN Anthony Holloway MD NEEL
[2018-10-25 13:50] LABS: BLOOD UREA NITROGEN 20 mg/dL (7-21); CALCIUM 9.8 mg/dL (8.4-10.5); GFR NON-AFRICAN AMERICAN > 60
[2018-10-25] MEDS: Levalbuterol 0.63 MG/3 ML Inhal Soln UD IH SCH ×2 (13:51→20:24)
[2018-10-25] MEDS ORDERED: Magnesium Sulfate 1 gm in D5W 1 GM/100 ML BAG IVPB ONE (14:55)
--- NOTE | 2018-10-25 15:32 | CP.PCM.CON ---
History of Present Illness - History of Present Illness History of Present Illness: Patient is a 68 year old female with past medical history of L sided intra- ductal carcinoma (s/p L mastectomy in 2004, s/p chemo/XRT), pHTN, HTN, HLD, AFib (on eliquis), T2DM, asthma, osteoporosis, and chronic low back pain presented to the ED for worsening SOB and wheezing. CTA on 10/24/18 to r/o PE showed incidental thyroid finding of "enlarged heterogeneous right and diminutive left thyroid gland with bilateral calcifications. The patient had a thyroid ultrasound done on 09/13/18 that showed a 17 mm isoechoic solid nodule in the right lobe with macroscopic calcifications and a 9 mm echogenic nodule in the mid left lobe. The patient states she had a normal thyroid panel as of August 2018 and has never taken thyroid medication. The patient states there has been a mass growing on the right side of her neck over the past 6 months along with 100 lbs weight gain and heat intolerance over the past 12 months. PMHx: L sided intra-ductal carcinoma (s/p L mastectomy in 2004, s/p chemo/XRT), pHTN, HTN, HLD, AFib (on eliquis), T2DM, asthma, osteoporosis, and chronic low back pain PSHx: Left mastectomy in 2014, R mastectomy in 2017, cholecystectomy NKDA Patient states she smoked 1 pack per week for 20 years but quit 25 years ago (Other notes state she smoke 1/2 ppd, quit 10 years ago) FamHx: mother had "stomach cancer", brother had "kidney cancer" General Surgery: Dr Jones Review of Systems - Review of Systems All systems: reviewed and no additional remarkable complaints except (As per HPI) - EENT Nose/Mouth/Throat: Neck Mass Past Patient History - Infectious Disease Hx of Infectious Diseases: None - Tetanus Immunizations Tetanus Immunization: Unknown - Past Medical History & Family History Past Medical History?: Yes - Past Social History Smoking Status: Former Smoker - CARDIAC Hx Cardia Arrhythmia: Yes (afib) Hx Congestive Heart Failure: Yes Hx Pacemaker: No - PULMONARY Hx Respiratory Disorders: Yes (SMOKED CIGARETTES QUIT 20 YRS AGO.) Hx Asthma: Yes Hx Chronic Obstructive Pulmonary Disease (COPD): Yes Hx Sleep Apnea: Yes (CPAP) Other/Comment: FORMER SMOKER - NEUROLOGICAL Hx Neurological Disorder: No - HEENT Hx HEENT Problems: No - RENAL Hx Chronic Kidney Disease: No - ENDOCRINE/METABOLIC Hx Endocrine Disorders: Yes Hx Diabetes Mellitus Type 2: Yes Hx Hyperthyroidism: Yes - HEMATOLOGICAL/ONCOLOGICAL Hx Blood Disorders: Yes Hx Cancer: Yes (b/l breast cancer) Hx Chemotherapy: Yes (AND RADIATION TO L BREAT COMPLETED) - INTEGUMENTARY Hx Dermatological Problems: Yes Other/Comment: TOTAL MASTECTOMY BILATERAL BREAST. ONE IN 2004 AND ONE 02-19-17 - MUSCULOSKELETAL/RHEUMATOLOGICAL Hx Falls: No - GASTROINTESTINAL Hx Gastrointestinal Disorders: Yes (LAP BAND SX) Hx Gall Bladder Disease: Yes (CHOLECYSTECTOMY) Hx Gastroesophageal Reflux: Yes - GENITOURINARY/GYNECOLOGICAL Hx Genitourinary Disorders: No - PSYCHIATRIC Hx Emotional Abuse: No Hx Physical Abuse: No Hx Substance Use: No - SURGICAL HISTORY Hx Surgeries: Yes Hx Cholecystectomy: Yes Other/Comment: POST BILATERAL TOTAL MASTECTOMY. right 2004, left 02-19-17. - ANESTHESIA Hx Anesthesia Reactions: No Hx Malignant Hyperthermia: No Meds Allergies/Adverse Reactions: Allergies Allergy/AdvReac Type Severity Reaction Status Date / Time No Known Allergies Allergy Verified 10/24/18 14:08 - Medications Medications: Current Medications Apixaban (Eliquis) 2.5 mg PO BID [facility]; Protocol Last Admin: 10/25/18 09:16 Dose: 2.5 mg Atorvastatin Calcium (Lipitor) 40 mg PO HS [facility] Last Admin: 10/24/18 21:42 Dose: 40 mg Budesonide (Pulmicort Respules) 0.5 mg IH [id number] [facility] Last Admin: 10/25/18 07:55 Dose: 0.5 mg Clonazepam (Klonopin) 0.5 mg PO BID PRN; Protocol PRN Reason: Anxiety Digoxin (Digoxin) 0.125 mg PO 1400 [facility] Diltiazem HCl (Cardizem Cd) 180 mg PO DAILY [facility] Last Admin: 10/25/18 09:17 Dose: 180 mg Escitalopram Oxalate (Lexapro) 10 mg PO DAILY [facility] Last Admin: 10/25/18 09:16 Dose: 10 mg Gabapentin (Neurontin) 200 mg PO BID [facility]; Protocol Last Admin: 10/25/18 09:15 Dose: 200 mg Glipizide (Glucotrol) 5 mg PO ACB [facility] Last Admin: 10/25/18 08:41 Dose: 5 mg Magnesium Sulfate/Dextrose (Magnesium Sulfate 1 Gm/100 Ml D5w) 1 gm in 100 mls @ 100 mls/hr IVPB ONCE ONE Stop: 10/25/18 15:54 Ipratropium [place] (Atrovent) 0.5 mg IH TIDRESP [facility] Last Admin: 10/25/18 13:46 Dose: 0.5 mg Levalbuterol HCl (Xopenex) 0.63 mg IH TIDRESP [facility] Last Admin: 10/25/18 13:51 Dose: 0.63 mg Levalbuterol HCl (Xopenex) 0.63 mg IH [id number] PRN PRN Reason: Shortness of Breath Losartan Potassium (Cozaar) 100 mg PO DAILY [facility] Last Admin: 10/25/18 12:00 Dose: 100 mg Metformin HCl (Glucophage) 500 mg PO BID [facility] Last Admin: 10/25/18 09:16 Dose: 500 mg Methylprednisolone (Solu-Medrol) 40 mg IV Q12 [facility] Last Admin: 10/25/18 09:15 Dose: 40 mg Montelukast Sodium (Singulair) 10 mg PO HS [facility] Last Admin: 10/24/18 21:41 Dose: 10 mg Non-Formulary Medication (Riociguat [Adempas]) 1 tab PO TID [facility] Pantoprazole Sodium (Protonix Ec Tab) 40 mg PO [facility] Physical Exam - Constitutional Appears: No Acute Distress - Neck Exam Neck exam: Positive for: Full Rom, Lymphadenopathy. Negative for: Tenderness Results - Vital Signs Recent Vital Signs: Last Vital Signs Temp 98.5 F 10/25/18 12:00 Pulse 100 H 10/25/18 12:00 Resp 19 10/25/18 12:00 BP 112/68 10/25/18 12:00 Pulse Ox 93 L 10/25/18 06:00 - Labs Result Diagrams: 10/24/18 13:29 10/25/18 13:15 Labs: Laboratory Results - last 24 hr 10/24/18 10/24/18 10/25/18 13:29 21:58 07:22 WBC 6.8 RBC 4.28 Hgb 12.2 Hct 38.6 MCV 90.2 MCH 28.5 MCHC 31.6 RDW 17.2 H Plt Count 216 MPV 12.1 H Neut % (Auto) 59.9 Lymph % (Auto) 29.8 Todd % (Auto) 7.3 H Eos % (Auto) 2.3 Baso % (Auto) 0.7 Lymph # (Auto) 2.0 Todd # (Auto) 0.5 Eos # (Auto) 0.2 Baso # (Auto) 0.05 Absolute Neuts (auto) 4.09 Sodium Potassium Chloride Carbon Dioxide Anion Gap BUN Creatinine Est GFR ( Amer) Est GFR (Non-Af Amer) POC Glucose (mg/dL) 226 H 207 H Random Glucose Calcium Magnesium 10/25/18 10/25/18 11:29 13:15 WBC RBC Hgb Hct MCV MCH MCHC RDW Plt Count MPV Neut % (Auto) Lymph % (Auto) Todd % (Auto) Eos % (Auto) Baso % (Auto) Lymph # (Auto) Todd # (Auto) Eos # (Auto) Baso # (Auto) Absolute Neuts (auto) Sodium 136 Potassium 3.9 Chloride 99 Carbon Dioxide 21 Anion Gap 20 BUN 20 Creatinine 0.4 L Est GFR ( Amer) > 60 Est GFR (Non-Af Amer) > 60 POC Glucose (mg/dL) 308 H Random Glucose 258 H Calcium 9.8 Magnesium 1.6 L Assessment & Plan - Assessment and Plan (Free Text) Assessment: 68F w/ cervical neck mass ddx lymphadenopathy vs thyroid nodule vs cancerous mass Plan: Pt will need biopsy outpatient. Patient will be contacted by Dr. Pedraza's office after discharge for scheduling will need to hold eliquis prior to procedure d/w Dr Keila Brooks, PGY4
[2018-10-25] MEDS: Digoxin 125 mcg (0.125 mg) Tab PO SCH (16:00)
--- NOTE | 2018-10-25 17:09 | CT ---
Date of service: 10/25/2018 PROCEDURE: CT NECK WITHOUT CONTRAST HISTORY: hx inflammatory breast CA, mass on thyroid US COMPARISON: Ultrasound of the thyroid 09/12/2018 TECHNIQUE: CT of the neck without intravenous contrast. Coronal and sagittal reformats generated. Radiation dose: Total exam DLP = 444.66 mGy-cm. This CT exam was performed using one or more of the following dose reduction techniques: Automated exposure control, adjustment of the mA and/or kV according to patient size, and/or use of iterative reconstruction technique. FINDINGS: NASOPHARYNX: Unremarkable. SUPRAHYOID NECK: Unremarkable oropharynx, oral cavity, parapharyngeal space and retropharyngeal space. INFRAHYOID NECK: Unremarkable larynx, hypopharynx, and supraglottic space. Vocal cords intact. MASS: None. GLANDS: Parotid and submandibular glands unremarkable. There is enlargement of the right lobe of the thyroid. There is a small calcification in the right lobe. There is a thyroid nodule along the anterior surface. The left lobe is unremarkable. LYMPH NODES: Normal. No lymphadenopathy. CERVICAL SPINE: Multilevel disc degeneration OTHER FINDINGS: Aortic and carotid calcifications IMPRESSION: There is enlargement of the right lobe of the thyroid. There is a small calcification in the right lobe. There is a thyroid nodule along the anterior surface. The left lobe is unremarkable.
[2018-10-25] MEDS: Insulin Reg-HIGH-Coverage SC SCH ×2 (18:30→21:30)
[2018-10-25] MEDS: Pantoprazole 40 mg EC Tab PO SCH (21:33)
--- NOTE | 2018-10-26 00:42 | PN ---
DATE: 10/25/2018 SUBJECTIVE: The patient is a 68-year-old seen and examined sitting in chair, seems to be comfortable, complained of shortness of breath walking small distance. The patient states she stays home alone. She was very short of breath with minimal exertion, that is why she came to ER. PHYSICAL EXAMINATION: VITAL SIGNS: She is afebrile, pulse 92, respirations 20, blood pressure 112/68. LUNGS: Bilateral soft crackle at bases and no active rhonchi or crackle heard. HEART: S1, S2 audible. ABDOMEN: Soft, obese, nontender. No rebound, no guarding. NEUROLOGIC: The patient is awake and alert, able to communicate. EXTREMITIES: Bilateral legs, +2 edema. LABORATORY EXAM: Chemistry: Sodium 136, potassium 3.9, chloride 99, CO2 of 21, BUN 20, creatinine of 0.4, blood sugar up to 79. Procalcitonin 0.05. CT scan of the head and neck shows enlargement of right lobe of thyroid. There is small calcification in the right nodule. There is a thyroid nodule along the anterior . The left lobe is unremarkable. ASSESSMENT AND PLAN: 1. Morbid obesity. 2. History of pulmonary hypertension. 3. Chronic atrial fibrillation. 4. Lrl-[id number] diabetes. 5. History of carcinoma breast, status post bilateral mastectomy. 6. History of sleep apnea. 7. Hyperlipidemia. Currently, the patient is on Cardizem CD. She is getting angiotensin-converting enzyme inhibitors. She is on digoxin. She is on Eliquis and metformin. Her blood sugar seems to be running high. We will increase her glipizide before breakfast and before dinner. Continue her on statin. She is on Pulmicort. I will request Dr. Gomez for evaluation. The patient states she has cardiac cath done by Dr. Gomez and was told her blockage is not more than 70%. So, we will get Dr. Gomez's inputs. We will follow up her electrolytes in a.m. and CBC in a.m., and request for physical therapy evaluation. The patient might benefit from TCU. Nabeel Drew MD
[2018-10-26 07:01] LABS: HEMOGLOBIN 11.8 g/dL (12.0-16.0); LYMPH # 1.4 (1.2-3.4); LYMPH % 9.4 % (22.0-35.0); MEAN CELL VOLUME 88.7 fl (80.0-105.0); MEAN CORPUSCULAR HEMOGLOBIN 27.8 pg (25.0-35.0); MEAN CORPUSCULAR HGB CONC 31.4 g/dl (31.0-37.0); MEAN PLATELET VOLUME 11.4 fl (7.0-11.0); MONO # 0.4 (0.1-0.6); MONO % 2.7 % (1.0-6.0); RBC 4.24 10^6/uL (3.5-6.1)
[2018-10-26 07:20] LABS: BLOOD UREA NITROGEN 19 mg/dL (7-21); CALCIUM 9.5 mg/dL (8.4-10.5); GFR NON-AFRICAN AMERICAN > 60
--- NOTE | 2018-10-26 07:36 | CP.PCM.PN ---
Subjective - Date & Time of Evaluation Date of Evaluation: 10/26/18 Time of Evaluation: 08:00 - Subjective Subjective: Hilario Walters PGY2 - Heme/Onc Progress Note for Dr. Benites Patient seen and examined this AM. Patient continues to report production of phlegm with some respiratory distres. Objective - Vital Signs/Intake and Output Vital Signs (last 24 hours): Temp Pulse Resp BP Pulse Ox 97.7 F 104 H 19 124/82 92 L 10/26/18 06:00 10/26/18 06:00 10/26/18 06:00 10/26/18 06:00 10/26/18 06:00 Intake and Output: 10/26/18 10/26/18 06:59 18:59 Intake Total 300 Balance 300 - Medications Medications: Current Medications Apixaban (Eliquis) 2.5 mg PO BID [facility]; Protocol Last Admin: 10/25/18 17:08 Dose: 2.5 mg Atorvastatin Calcium (Lipitor) 40 mg PO HS [facility] Last Admin: 10/25/18 21:33 Dose: 40 mg Budesonide (Pulmicort Respules) 0.5 mg IH [id number] [facility] Last Admin: 10/25/18 20:24 Dose: 0.5 mg Clonazepam (Klonopin) 0.5 mg PO BID PRN; Protocol PRN Reason: Anxiety Digoxin (Digoxin) 0.125 mg PO 1400 [facility] Last Admin: 10/25/18 16:00 Dose: 0.125 mg Diltiazem HCl (Cardizem Cd) 180 mg PO DAILY [facility] Last Admin: 10/25/18 09:17 Dose: 180 mg Escitalopram Oxalate (Lexapro) 10 mg PO DAILY [facility] Last Admin: 10/25/18 09:16 Dose: 10 mg Gabapentin (Neurontin) 200 mg PO BID [facility]; Protocol Last Admin: 10/25/18 17:08 Dose: 200 mg Glipizide (Glucotrol) 5 mg PO ACBD [facility] Insulin Human Regular (Humulin R High) 0 units SC ACHS [facility]; Protocol Last Admin: 10/25/18 21:30 Dose: Not Given Ipratropium [place] (Atrovent) 0.5 mg IH TIDRESP [facility] Last Admin: 10/25/18 20:24 Dose: 0.5 mg Levalbuterol HCl (Xopenex) 0.63 mg IH TIDRESP [facility] Last Admin: 10/25/18 20:24 Dose: 0.63 mg Levalbuterol HCl (Xopenex) 0.63 mg IH [id number] PRN PRN Reason: Shortness of Breath Losartan Potassium (Cozaar) 100 mg PO DAILY [facility] Last Admin: 10/25/18 12:00 Dose: 100 mg Metformin HCl (Glucophage) 500 mg PO BID [facility] Last Admin: 10/25/18 17:05 Dose: 500 mg Methylprednisolone (Solu-Medrol) 40 mg IV Q12 [facility] Last Admin: 10/25/18 21:34 Dose: 40 mg Montelukast Sodium (Singulair) 10 mg PO HS [facility] Last Admin: 10/25/18 21:33 Dose: 10 mg Non-Formulary Medication (Riociguat [Adempas]) 1 tab PO TID [facility] Pantoprazole Sodium (Protonix Ec Tab) 40 mg PO HS [facility] Last Admin: 10/25/18 21:33 Dose: 40 mg - Labs Labs: 10/26/18 06:30 10/26/18 06:30 PT 14.5 SECONDS (9.4-12.5) H 10/24/18 14:35 INR 1.31 10/24/18 14:35 APTT 35.1 Seconds (26.9-38.3) 10/24/18 14:35 - Head Exam Head Exam: ATRAUMATIC, NORMOCEPHALIC - Eye Exam Eye Exam: EOMI, PERRL - ENT Exam ENT Exam: Mucous Membranes Moist - Neck Exam Neck Exam: Full ROM - Respiratory Exam Respiratory Exam: Decreased Breath Sounds, NORMAL BREATHING PATTERN - Cardiovascular Exam Cardiovascular Exam: REGULAR RHYTHM, +S1, +S2 - GI/Abdominal Exam GI & Abdominal Exam: Soft, Normal Bowel Sounds. absent: Rigid, Tenderness - Extremities Exam Extremities Exam: Full ROM - Neurological Exam Neurological Exam: Alert, Awake, Oriented x3 Additional comments: motor and sensory grossly intact - Psychiatric Exam Psychiatric exam: Normal Affect, Normal Mood - Skin Skin Exam: Dry, Warm Assessment and Plan - Assessment and Plan (Free Text) Assessment: 68 yo F with PMH of osteoporosis (on prolia), pHTN, HTN, HLD, AFib (on eliquis), DM2, chronic low back pain, and L sided intra-ductal carcinoma (s/p L mastectomy in 2004, s/p chemo/XRT and s/p patient preference R mastectomy in 2017) admitted for dyspnea likely 2/2 asthma exacerbation and/or pulmonary HTN. Patient noted to have thyroid mass on CT that is currently under further investigation with assistance from General Surgery. Plan: Dyspnea Recommend continuing optimal medical management Patient to follow up with Dr. 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 Benites has been following since 2004 Recommend continuing home eliquis for hx of AFib Right sided Thyroid Mass Identified on prior thyroid US Will need biopsy, given history General Surgery recommendations for outpatient biopsy Awaiting further recommendations from IR, Dr Benites to speak with Dr. Renard Russell Soft Tissue Neck CT: Right lobe enlargement that is anterior with small calcification noted Low TSH TSH low, Free T4 wnl , Free T3 low Possible subclinical hypothryoidism Further recommendations post biopsy and primary management Further recommendations per Dr. Benites
[2018-10-26] MEDS: Ipratropium 0.02% Inhal Soln (0.5 mg/2.5 ml) UD IH SCH ×3 (07:47→20:17)
[2018-10-26] MEDS: Levalbuterol 0.63 MG/3 ML Inhal Soln UD IH SCH ×3 (07:47→20:17)
[2018-10-26] MEDS: Budesonide 0.5 mg/2 ml Inhal Susp UD IH SCH ×2 (07:47→20:17)
[2018-10-26] MEDS: Insulin Reg-HIGH-Coverage SC SCH ×4 (08:13→22:05)
[2018-10-26] MEDS: MethylPREDNISolone 40 mg Vial IV SCH ×2 (09:15→22:06)
[2018-10-26] MEDS: diltiaZEM 180 mg/24 Hours CD Cap PO SCH (09:16)
--- NOTE | 2018-10-26 13:50 | PN ---
DATE: 10/26/2018 PULMONARY PROGRESS NOTE REFERRING PHYSICIAN: Nabeel Drew MD SUBJECTIVE: The patient is seen sitting in the armchair in the room, oxygen via nasal cannula in place. The patient reports that she is having productive cough. No shortness of breath at this time. No headache, rhinitis, chest pain, abdominal pain, nausea, vomiting, diarrhea, leg pain or leg swelling reported. OBJECTIVE: GENERAL: No acute distress. VITAL SIGNS: Blood pressure 120/71, pulse 92, temperature 97.7 and oxygen saturation 92%. HEENT: Moist mucous membranes. NECK: Supple. No JVD. CARDIOVASCULAR: S1 and S2 irregular. RESPIRATORY: Few scattered rhonchi. ABDOMEN: Soft and nontender. No distention. No organomegaly. EXTREMITIES: Trace bilateral lower extremity edema. NEUROLOGIC: Awake, alert and verbal. Following commands. MEDICATIONS: Reviewed. Eliquis 5 mg twice a day, Lipitor 40 mg at bedtime, Pulmicort 0.5 mg inhalation every 12 hours, Klonopin 0.5 mg twice a day p.r.n., digoxin 0.125 mg daily, Cardizem 180 mg daily, Lexapro 10 mg daily, Neurontin 200 mg twice a day, Lasix 40 mg daily, Glucotrol 10 mg in the morning, Humulin R sliding scale a.c. and at bedtime, Atrovent 0.5 mg inhalation 3 times a day, Xopenex 0.63 mg inhalation every 6 hours p.r.n., Xopenex 0.63 mg inhalation 3 times a day, Cozaar 100 mg daily, Glucophage 500 mg twice a day, Solu-Medrol 40 mg every 12 hours, Singulair 10 mg at bedtime, Adempas one tablet 3 times a day, Protonix 40 mg at bedtime and potassium chloride 20 mEq at breakfast. LABORATORY DATA: Reviewed. WBC 15, RBC 4.24, hemoglobin 11.8, hematocrit 37.6 and platelets 214. Sodium 136, potassium 4.2, chloride 100, carbon dioxide 25, anion gap 16, BUN 19, creatinine 0.5, GFR greater than 60, POC glucose 253, random glucose 259, calcium 9.5, magnesium 1.8 and TSH 0.24. Procalcitonin less than 0.05. Echocardiogram report pending. Soft tissue neck CT shows enlargement of the right lobe of the thyroid, small calcification in the right lobe, thyroid nodule along the anterior surface, left lobe is unremarkable. IMPRESSION AND PLAN: Asthma exacerbation, sleep apnea syndrome, pulmonary hypertension, atrial fibrillation with rapid ventricular response, diabetes mellitus, hypertension and hyperlipidemia, pulmonary nodules seen on CT scan, may be radiation induced pneumonitis, chronic lung disease, inflammatory process. The patient will need followup CT scan in 3 to 4 months to follow up on stability of nodules. Procalcitonin level is negative indicating not bacterial pneumonia may be viral syndrome which triggered asthma exacerbation and cough. We will order swallow evaluation just to ensure no aspiration. Aspiration precaution, continue continuous positive airway pressure use at bedtime, sleep apnea precaution, head of bed elevated at 45 degrees. Continue gastric prophylaxis. The patient is currently on anticoagulation therapy. We will followup with echocardiogram results when available. Continue inhaled bronchodilators. This patient was seen and examined with Dr. Holloway. Discussed assessment and plan as described above. This patient was seen and examined by Kevin Randolph, nurse practitioner. Discussed assessment and plan as described above. Thank you for this consult and we will follow with you. Kevin Randolph APN Anthony Holloway MD NEEL
--- NOTE | 2018-10-26 15:01 | PN ---
DATE: 10/26/2018 SUBJECTIVE: The patient is a 68-year-old, seen and examined. Still has shortness of breath, more so on walking. Just came back from echocardiogram. PHYSICAL EXAMINATION VITAL SIGNS: She is afebrile. Pulse 114, respirations 22 and blood pressure 121/70. LUNGS: Bilateral fair airflow. Few expiratory rhonchi. HEART: S1 and S2 audible. ABDOMEN: Soft, obese and nontender. No rebound. No guarding. NEUROLOGIC: She is awake and alert, able to communicate. EXTREMITIES: Bilateral legs no edema. BREASTS: Status post bilateral mastectomy. LABORATORY DATA: WBC 15, hemoglobin 11.8, hematocrit 37.6 and platelet of 214. PT 14.5 and INR 1.31. Chemistry; sodium 136, potassium 4.2, chloride 100, CO2 of 25, BUN 19, creatinine 0.5 and blood sugar of 223. She had echocardiogram done that seems to be unremarkable. She has electrocardiogram that is pending. ASSESSMENT: 1. Chronic obstructive pulmonary disease exacerbation. 2. History of pulmonary hypertension. 3. Chronic atrial fibrillation. 4. Non-insulin dependent diabetes. 5. Morbid obesity. 6. Hyperlipidemia. 7. Status post bilateral mastectomy. 8. Exertional dyspnea, rule out underlying coronary ischemia. PLAN: We will followup echocardiogram. Continue aero nebulizer treatment. Continue IV steroid. Out of bed to chair. Awaiting Cardiology input. Monitor her kidney functions. She developed leukocytosis probably secondary to steroid. We will request for TCU evaluation and if accepted can be transferred to TCU. Nabeel Drew MD
[2018-10-26] MEDS: Digoxin 125 mcg (0.125 mg) Tab PO SCH (15:44)
[2018-10-26] MEDS: RIOCIGUAT 2.5 MG PO SCH (17:38)
--- NOTE | 2018-10-26 19:53 | CARD ---
APPROVED REPORT Date of service: 10/26/2018 EXAM: Two-dimensional and M-mode echocardiogram with Doppler and color Doppler. INDICATION Pulmonary Hypertention LVFX/ 2D DIMENSIONS Left Atrium (2D)5.2 (1.6-4.0cm)IVSd1.0 (0.7-1.1cm) LVDd4.8 (3.9-5.9cm)LVOT Diameter1.8 (1.8-2.4cm) PWd1.2 (0.7-1.1cm)LVDs3.3 (2.5-4.0cm) FS (%) 31.4 %LVEF (%)59.2 (>50%) M-Mode DIMENSIONS Aortic Root3.30 (2.2-3.7cm)Aortic Cusp Exc.0.80 (1.5-2.0cm) Aortic Valve AoV Peak Muncldsd151.0cm/sAoV VTI65.6cmAO Peak GR.47mmHg LVOT Peak Oizbrnzp84.0cm/sLVOT VTI18.90cmAO Mean GR.24mmHg COOKIE (VMAX)0.79dd0XWL (VTI)0.73cm2 Mitral Valve E/A ratio0.0 TDI E/Lateral E'0.0E/Medial E'0.0 Pulmonary Valve PV Peak Ugkqboik23.3cm/sPV Peak Grad.2mmHg Tricuspid Valve TR Peak Targrald938cp/sRAP [id number] Peak Gr.45mmHg [id number] LEFT VENTRICLE The left ventricle is normal size. There is mild concentric left ventricular hypertrophy. The left ventricular function is normal.EF-65% ( afib). There is normal LV segmental wall motion. Pt was in A fib , diastlic Fx could not be assessed. No left ventricle thrombus noted on this study. There is no ventricular septal defect visualized. There is no left ventricular aneurysm. There is no mass noted in the left ventricle. RIGHT VENTRICLE The right ventricle is mildly to moderately dilated. There is normal right ventricular wall thickness. Systolic function is mildly reduced. ATRIA The left atrium is moderately dilated. The right atrium is moderately dilated. The interatrial septum is intact with no evidence for an atrial septal defect. AORTIC VALVE The aortic valve is calcified and displays decreased opening. There is trace aortic regurgitation. Possibly moderate to Severe valvular aortic stenosis,Consider MERLYN To Assess Sevirity of There is no aortic valvular vegetation. MITRAL VALVE The mitral valve is thickened but opens well. Mitral regurgitation is mild to moderate. There is no mitral valve stenosis. There is no evidence of mitral valve prolapse. TRICUSPID VALVE The tricuspid valve leaflets are thickened , but open well. There is moderate tricuspid regurgitation.RVSP-55 Mmof hg. There is moderate pulmonary hypertension. There is no tricuspid valve stenosis. There is no tricuspid valve prolapse or vegetation. PULMONIC VALVE The pulmonary valve is normal in structure. There is trace pulmonic valvular regurgitation. There is no pulmonic valvular stenosis. GREAT VESSELS The aortic root is normal in size. The ascending aorta is normal in size. The pulmonary artery is normal. The IVC is normal in size and collapses >50% with inspiration. PERICARDIAL EFFUSION There is no pleural effusion. There is no pericardial effusion. <Conclusion> There is mild concentric left ventricular hypertrophy. The left ventricular function is normal.EF-65% ( afib). Mitral regurgitation is mild to moderate. There is moderate tricuspid regurgitation.RVSP-55 Mmof hg. There is moderate pulmonary hypertension. The IVC is normal in size and collapses >50% with inspiration. There is no pericardial effusion. Dilated RA/RV/La Possibly moderate to Severe valvular aortic stenosis,Consider MERLYN To Assess Sevirity of . No vegetation or thrombus noted.
--- NOTE | 2018-10-26 21:39 | CON ---
DATE OF CONSULTATION: 10/26/2018 CARDIOLOGY CONSULTATION REASON FOR CONSULTATION: History of nonobstructive coronary artery disease, chronic atrial fibrillation, pulmonary hypertension, admitted with shortness of breath, cardiac evaluation and management. BRIEF CLINICAL HISTORY: This is a 68-year-old morbidly obese female with a past medical history significant for hypertension, COPD, diabetes, chronic atrial fibrillation, on Eliquis, pulmonary hypertension, history of cardiac catheterization, nonobstructive coronary artery disease in the past, history of breast cancer, status post mastectomy, being followed by Dr. Cuellar as well as Dr. Rafy Charles and Dr. Benites, admitted yesterday with shortness of breath. PAST HISTORY: Significant for pulmonary hypertension, morbid obesity, diabetes, hypertension, hyperlipidemia, chronic atrial fibrillation. PAST SURGICAL HISTORY: History of cardiac catheterization 12/16/2017, history of breast CA bilateral, status post mastectomy, on oral pills, being followed by Dr. Benites. CURRENT MEDICATIONS: The patient is taking at home Ellipta, Trulicity, Glucophage, Adempas for pulmonary hypertension, Singulair, Neurontin, atorvastatin, clonazepam, Demadex, Lexapro, glipizide, Eliquis one tablet daily, losartan one tablet daily, Cardizem, and digoxin. ALLERGIES: NO KNOWN DRUG ALLERGIES. PREVIOUS CARDIAC WORKUP FOLLOWS: Most recently, the patient had an echocardiography done on 04/22/2018, read by Dr. Goodman, and shows normal LV function. Left ventricular ejection fraction is within normal limit, moderate to severe valvular aortic stenosis, mild to moderate tricuspid regurgitation, severe pulmonary hypertension, and RV systolic pressure calculated at 76 mmHg. The patient had prior catheterization done dated 12/16/2018, that revealed nonobstructive coronary artery disease, limited only to distal, RPDA 55% stenosis, preserved LV function, ejection fraction 55-60%, EDP was 16-18 mmHg. Right heart catheterization revealed RA 12, RV 48/12, PA 48/20, mean PA is 27 mmHg. Pulmonary capillary wedge pressure 12. Cardiac output 4.48 liters per minute, cardiac index 2.25 liters per minute, pulmonary vascular resistance 3.34 De [place] unit. There was addendum added on 04/22/2018 on cath report because echo report dated 04/22/2018 reported severe aortic stenosis. Tracing reviewed from the MAC lab at that time reported peak gradient 5-10 mmHg, consistent with mild aortic stenosis by cath. REVIEW OF SYSTEMS: As per HPI. Height of the patient is 5 feet, weight of the patient 240 pounds, body mass index elevated at 38 kg/sq m. PHYSICAL EXAMINATION: VITAL SIGNS: Temperature, afebrile; heart rate 104; blood pressure 124/82. HEENT: PERRLA. Extraocular muscles are intact. NECK: Supple. No carotid bruit or thyromegaly. CHEST: Clear to auscultation. HEART: S1 and S2 regular. ABDOMEN: Soft. EXTREMITIES: Clubbing and cyanosis negative. Trace to 1 pedal edema. EKG shows atrial fibrillation, rate of 100. BLOOD WORKUP: WBC 15, hemoglobin and hematocrit are 10 and 36.6, platelet count 214. Chemistries show sodium 130, potassium 4, chloride 100, carbon dioxide 25, anion gap of 16.19, creatinine 0.5. IMPRESSION: A 68-year-old morbidly obese female with past medical history significant for diabetes, hypertension, hyperlipidemia, chronic atrial fibrillation, on Eliquis, severe pulmonary hypertension. Last echo showed moderate to severe aortic stenosis by cath dated 12/16/2017, mild aortic stenosis pullback, 5-10 mm of gradient consistent with mild aortic stenosis. Though the patient had severe pulmonary hypertension by echo, that also shows moderate pulmonary retention, the patient is on Adempas for pulmonary hypertension as well as on Eliquis. RECOMMENDATIONS: Continue digoxin. Continue Cardizem. Continue metformin. Continue atorvastatin. Continue Eliquis. Continue diuretics to keep negative fluid balance. Lipid profile, TSH, hemoglobin A1c. Also, we will get repeat echo to assess LV function. BNP was elevated, 257. We will continue gentle diuretics to keep fluid negative balance and increase the breathing. We will follow with you. Further recommendations will be made after echo. We will keep daily Lasix 40 once a day. We will get lipid profile, TSH, hemoglobin A1c as well. If the kidney function gets worse, we will consider to decrease the dose. For now, since the patient is obese, age is 68, and renal function is normal, we will increase Eliquis to 5 p.o. b.i.d. Thank you Dr. Drew to provide us the opportunity in taking care of the patient, Lizzy Castanon. Anthony Gomez MD [facility] # [id number]
[2018-10-26] MEDS: Pantoprazole 40 mg EC Tab PO SCH (22:06)
--- NOTE | 2018-10-27 03:37 | CON ---
DATE: 10/26/2018 REASON FOR CONSULTATION: Oliguria, edema, shortness of breath. HISTORY OF PRESENTING ILLNESS: A 68-year-old lady admitted on 10/24/2018 with complaints of shortness of breath, chest tightness, dyspnea on exertion, unable to speak in full sentences. Also complained of cough, congestion. The patient also reported lower extremity edema. She also complained of decreased urine output. At the time of presentation, her vital signs were, blood pressure was 106/59, heart rate was 98, respiratory rate was 18-24, temperature, she was afebrile. Her BUN was 19, creatinine was 0.5. Her magnesium was 1.3. Her hemoglobin was 12.2. The patient was treated with respiratory treatments, inhalers. She was also given Lasix 40 mg IV today. The patient reports that with the Lasix, she has made more urine today and her lower extremity edema is better. PAST MEDICAL AND SURGICAL HISTORY: Morbid obesity, COPD, pulmonary hypertension, hypertension, hyperlipidemia, atrial fibrillation, NIDDM, left breast cancer in 2004, status post chemo and radiation, right breast cancer in 2016, left mastectomy 2004, right mastectomy 2016. FAMILY HISTORY: Stomach cancer in mother, brother with renal cell CA. SOCIAL HISTORY: Ex-smoker, no alcohol use, no IV drug abuse. ALLERGIES: NO KNOWN DRUG ALLERGIES. MEDICATIONS AT HOME: Lipitor, metformin, Lasix, glipizide, Singulair, Eliquis, losartan, Klonopin, vitamin D, digoxin, diltiazem. REVIEW OF SYSTEMS: All systems are reviewed, pertinent positives as mentioned in the history of presenting illness, rest unremarkable. PHYSICAL EXAMINATION: GENERAL: Morbidly obese lady, sitting in chair. VITAL SIGNS: Blood pressure 117/67, heart rate 91, respiratory rate 20, temperature 97.6. HEENT: Normocephalic, atraumatic, positive pallor. NECK: Supple, no JVD. LUNGS: Bilateral equal entry, bilateral equal expansion. CARDIAC: S1, S2, regular rate and rhythm, no murmur, no rub. ABDOMEN: Obese, distended, soft, nontender, bowel sounds present. EXTREMITIES: 1+ pitting edema of the lower extremities. INTAKE AND OUTPUT: 1436/1600. LABORATORY DATA: WBC 15, hemoglobin 11.8, hematocrit 37.6, platelets 214. Sodium 136, potassium 3.9, chloride 99, CO2 of 21, BUN 20, creatinine 0.4, glucose 258, calcium 9.8, magnesium 1.6. CURRENT MEDICATIONS: Xopenex, Solu-Medrol 40 IV every 12, Singulair, Adempas one tablet t.i.d., Protonix 40, gabapentin 200 b.i.d., Lipitor 40, Lexapro, Lasix 40 mg IV given today, Klonopin, K-Dur 20, Glucotrol 10 b.i.d., digoxin 0.125 daily, losartan 100, Cardizem 180, Atrovent. ASSESSMENT: 1. Chronic obstructive pulmonary disease/pulmonary hypertension. 2. Hypertension. 3. Morbid obesity. 4. Complains of decreased urine output, edema. 5. [id number] diabetes mellitus. 6. History of breast cancer. PLAN: 1. Check urinalysis. 2. Check A1c. 3. Check 24-hour urine for protein and creatinine clearance. Antonia Price MD
--- NOTE | 2018-10-27 06:01 | CP.PCM.PN ---
Subjective - Date & Time of Evaluation Date of Evaluation: 10/27/18 Time of Evaluation: 05:58 - Subjective Subjective: S:Seen because I was asked to co-sign order for Colace 100 mg PO x 1. States that she has been constipated. Last BM she has had was on Wednesday. Has no other c/o. Denies nausea/vomiting/abdominal pain. Medical record was reviewed. O: VSS except heart rate little tachy. Obese person , not in acute distress. LUNGS: Normal breathing pattern. ABD: No obvious distension. A:Constipation. P: Colace 100 mg PO x 1 was ordered. Objective - Vital Signs/Intake and Output Vital Signs (last 24 hours): Temp Pulse Resp BP Pulse Ox 98.2 F 103 H 19 107/66 99 10/27/18 00:01 10/27/18 02:00 10/27/18 00:01 10/27/18 00:01 10/27/18 00:01 Intake and Output: 10/26/18 10/27/18 18:59 06:59 Intake Total 1976 Output Total 1600 200 Balance -1600 1776 - Medications Medications: Current Medications Apixaban (Eliquis) 5 mg PO BID [facility]; Protocol Last Admin: 10/26/18 17:37 Dose: 5 mg Atorvastatin Calcium (Lipitor) 40 mg PO HS [facility] Last Admin: 10/26/18 22:06 Dose: 40 mg Budesonide (Pulmicort Respules) 0.5 mg IH [id number] [facility] Last Admin: 10/26/18 20:17 Dose: 0.5 mg Clonazepam (Klonopin) 0.5 mg PO BID PRN; Protocol PRN Reason: Anxiety Digoxin (Digoxin) 0.125 mg PO 1400 [facility] Last Admin: 10/26/18 15:44 Dose: 0.125 mg Diltiazem HCl (Cardizem Cd) 180 mg PO DAILY [facility] Last Admin: 10/26/18 09:16 Dose: 180 mg Docusate Sodium (Colace) 100 mg PO ONCE ONE Stop: 10/27/18 06:01 Escitalopram Oxalate (Lexapro) 10 mg PO DAILY [facility] Last Admin: 10/26/18 09:16 Dose: 10 mg Furosemide (Lasix) 40 mg IV DAILY [facility] Last Admin: 10/26/18 09:53 Dose: 40 mg Gabapentin (Neurontin) 200 mg PO BID [facility]; Protocol Last Admin: 10/26/18 17:37 Dose: 200 mg Glipizide (Glucotrol) 10 mg PO ACBD [facility] Last Admin: 10/26/18 15:44 Dose: 10 mg Insulin Human Regular (Humulin R High) 0 units SC ACHS [facility]; Protocol Last Admin: 10/26/18 22:05 Dose: Not Given Ipratropium [place] (Atrovent) 0.5 mg IH TIDRESP [facility] Last Admin: 10/26/18 20:17 Dose: 0.5 mg Levalbuterol HCl (Xopenex) 0.63 mg IH TIDRESP [facility] Last Admin: 10/26/18 20:17 Dose: 0.63 mg Levalbuterol HCl (Xopenex) 0.63 mg IH [id number] PRN PRN Reason: Shortness of Breath Losartan Potassium (Cozaar) 100 mg PO DAILY [facility] Last Admin: 10/26/18 09:16 Dose: 100 mg Metformin HCl (Glucophage) 500 mg PO BID [facility] Last Admin: 10/26/18 17:37 Dose: 500 mg Methylprednisolone (Solu-Medrol) 40 mg IV Q12 [facility] Last Admin: 10/26/18 22:06 Dose: 40 mg Montelukast Sodium (Singulair) 10 mg PO HS [facility] Last Admin: 10/26/18 22:07 Dose: 10 mg Riociguat [Adempas] (2.5mg (Home Med)) 1 tab PO TID [facility] Last Admin: 10/26/18 17:38 Dose: 1 tab Pantoprazole Sodium (Protonix Ec Tab) 40 mg PO HS [facility] Last Admin: 10/26/18 22:06 Dose: 40 mg Potassium Chloride (K-Dur 20 Meq Er Tab) 20 meq PO BRK [facility] - Labs Labs: 10/26/18 06:30 10/26/18 06:30 PT 14.5 SECONDS (9.4-12.5) H 10/24/18 14:35 INR 1.31 10/24/18 14:35 APTT 35.1 Seconds (26.9-38.3) 10/24/18 14:35
[2018-10-27 06:06] LABS: URINE BILIRUBIN NEGATIVE (NEGATIVE); URINE BLOOD NEGATIVE (NEGATIVE); URINE GLUCOSE (UA) NEGATIVE (NEGATIVE); URINE LEUKOCYTE ESTERASE NEGATIVE Leu/uL (NEGATIVE); URINE PROTEIN NEGATIVE mg/dL (<30 mg/dL); URINE UROBILINOGEN 0.2 E.U./dL (<1 E.U./dL)
[2018-10-27 06:11] LABS: URINE APPEARANCE CLEAR (CLEAR); URINE COLOR YELLOW (YELLOW)
[2018-10-27 07:32] LABS: ALB/GLOB RATIO 1.3 (1.1-1.8); ALT/SGPT 22 U/L (7-56); AST/SGOT 17 U/L (14-36); BLOOD UREA NITROGEN 21 mg/dL (7-21); CALCIUM 9.2 mg/dL (8.4-10.5); GFR NON-AFRICAN AMERICAN > 60; HDL CHOLESTEROL 51 mg/dL (29-60)
[2018-10-27 07:40] LABS: LDL CHOLESTEROL 85 mg/dL (0-129)
[2018-10-27] MEDS: Ipratropium 0.02% Inhal Soln (0.5 mg/2.5 ml) UD IH SCH ×3 (07:40→19:39)
[2018-10-27] MEDS: Budesonide 0.5 mg/2 ml Inhal Susp UD IH SCH ×2 (07:41→19:39)
[2018-10-27] MEDS: Levalbuterol 0.63 MG/3 ML Inhal Soln UD IH SCH ×3 (07:41→19:39)
[2018-10-27] MEDS: Potassium Chloride 20 mEq ER Tab PO SCH (08:02)
[2018-10-27] MEDS: Insulin Reg-HIGH-Coverage SC SCH ×4 (08:02→22:47)
[2018-10-27 08:23] LABS: BASO # 0.01 K/mm3 (0.0-2.0); BASO % 0.1 % (0.0-3.0); HEMOGLOBIN 11.8 g/dL (12.0-16.0); LYMPH # 1.2 (1.2-3.4); LYMPH % 10.6 % (22.0-35.0); MEAN CELL VOLUME 88.9 fl (80.0-105.0); MEAN CORPUSCULAR HGB CONC 31.5 g/dl (31.0-37.0); MEAN PLATELET VOLUME 11.6 fl (7.0-11.0); MONO # 0.3 (0.1-0.6); MONO % 2.4 % (1.0-6.0); RBC 4.22 10^6/uL (3.5-6.1); RED CELL DISTRIBUTION WIDTH 16.9 % (11.5-14.5); WHITE BLOOD COUNT 11.2 10^3/uL (4.5-11.0)
--- NOTE | 2018-10-27 08:58 | CP.PCM.PN ---
Subjective - Date & Time of Evaluation Date of Evaluation: 10/27/18 Time of Evaluation: 06:25 - Subjective Subjective: Awake, sitting side of bed, denies shortness of breath at rest Reason for consultation and follow up:Cardiac evaluation of shortness of breath, history of atrial fibrillation, non obstructive coronary artery disease, pulmonary hypertension Seen and examined by me and Dr. Zarate Objective - Vital Signs/Intake and Output Vital Signs (last 24 hours): Temp Pulse Resp BP Pulse Ox 97.9 F 105 H 18 107/66 93 L 10/27/18 06:00 10/27/18 06:00 10/27/18 06:00 10/27/18 00:01 10/27/18 06:00 Intake and Output: 10/27/18 10/27/18 06:59 18:59 Intake Total 2476 Output Total 700 Balance 1776 - Medications Medications: Current Medications Apixaban (Eliquis) 5 mg PO BID [facility]; Protocol Last Admin: 10/26/18 17:37 Dose: 5 mg Atorvastatin Calcium (Lipitor) 40 mg PO HS [facility] Last Admin: 10/26/18 22:06 Dose: 40 mg Budesonide (Pulmicort Respules) 0.5 mg IH [id number] [facility] Last Admin: 10/27/18 07:41 Dose: 0.5 mg Clonazepam (Klonopin) 0.5 mg PO BID PRN; Protocol PRN Reason: Anxiety Digoxin (Digoxin) 0.125 mg PO 1400 [facility] Last Admin: 10/26/18 15:44 Dose: 0.125 mg Diltiazem HCl (Cardizem Cd) 180 mg PO DAILY [facility] Last Admin: 10/26/18 09:16 Dose: 180 mg Escitalopram Oxalate (Lexapro) 10 mg PO DAILY [facility] Last Admin: 10/26/18 09:16 Dose: 10 mg Furosemide (Lasix) 40 mg IV DAILY [facility] Last Admin: 10/26/18 09:53 Dose: 40 mg Gabapentin (Neurontin) 200 mg PO BID [facility]; Protocol Last Admin: 10/26/18 17:37 Dose: 200 mg Glipizide (Glucotrol) 10 mg PO ACBD [facility] Last Admin: 10/27/18 08:02 Dose: 10 mg Insulin Human Regular (Humulin R High) 0 units SC ACHS [facility]; Protocol Last Admin: 10/27/18 08:02 Dose: 7 units Ipratropium [place] (Atrovent) 0.5 mg IH TIDRESP [facility] Last Admin: 10/27/18 07:40 Dose: 0.5 mg Levalbuterol HCl (Xopenex) 0.63 mg IH TIDRESP [facility] Last Admin: 10/27/18 07:41 Dose: 0.63 mg Levalbuterol HCl (Xopenex) 0.63 mg IH [id number] PRN PRN Reason: Shortness of Breath Losartan Potassium (Cozaar) 100 mg PO DAILY [facility] Last Admin: 10/26/18 09:16 Dose: 100 mg Metformin HCl (Glucophage) 500 mg PO BID [facility] Last Admin: 10/26/18 17:37 Dose: 500 mg Methylprednisolone (Solu-Medrol) 40 mg IV Q12 [facility] Last Admin: 10/26/18 22:06 Dose: 40 mg Montelukast Sodium (Singulair) 10 mg PO HS [facility] Last Admin: 10/26/18 22:07 Dose: 10 mg Riociguat [Adempas] (2.5mg (Home Med)) 1 tab PO TID [facility] Last Admin: 10/26/18 17:38 Dose: 1 tab Pantoprazole Sodium (Protonix Ec Tab) 40 mg PO HS [facility] Last Admin: 10/26/18 22:06 Dose: 40 mg Potassium Chloride (K-Dur 20 Meq Er Tab) 20 meq PO BRK [facility] Last Admin: 10/27/18 08:02 Dose: 20 meq - Labs Labs: 10/27/18 06:30 10/27/18 06:30 PT 14.5 SECONDS (9.4-12.5) H 10/24/18 14:35 INR 1.31 10/24/18 14:35 APTT 35.1 Seconds (26.9-38.3) 10/24/18 14:35 - Constitutional Appears: Non-toxic, No Acute Distress - Head Exam Head Exam: NORMAL INSPECTION, NORMOCEPHALIC - ENT Exam ENT Exam: Mucous Membranes Moist - Respiratory Exam Respiratory Exam: Decreased Breath Sounds Additional comments: shortness of breath on exertion - Cardiovascular Exam Cardiovascular Exam: Irregular Rhythm, +S1, +S2 Additional comments: Telemetry-atrial fibrillation 90-100's - GI/Abdominal Exam GI & Abdominal Exam: Soft, Normal Bowel Sounds - Extremities Exam Extremities Exam: Full ROM - Neurological Exam Neurological Exam: Alert, Awake, Oriented x3 - Psychiatric Exam Psychiatric exam: Normal Affect, Normal Mood - Skin Skin Exam: Dry, Normal Color, Warm Assessment and Plan - Assessment and Plan (Free Text) Assessment: A 68 year old female morbidly obese who came in to the ER due to shortness of breath x 1 day. Just recently completed antibiotics for upper respiratory infe ction. History of chronic A-fib,on Eliquis, pulmonary hypertension, Asthma, sleep apnea, breast cancer post mastectomy (2004,2016),follows up with Dr. Benites. hypertension, COPD, diabetes, hyperlipidemia. Cardiac cath on 12/16/17 showed non obstructive coronary artery disease, distal R PDA diffuse disease 55%, LVEF 55-60%. Echo was done yesterday and showed LVEF 65%, (Atrial fib), mild to moderate mitral regurgitation, moderate tricuspid regurgitation, RVSP 55 mmHg, moderate pulmonary hypertension, Dilated RA/RV/LA. possible moderate to severe aortic stenosis. Consider MERLYN to evaluate severity of aotic stenosis. Severe pulmonary hypertension, on Adempas. Denies shortness of breath at rest, mild shortness of breath when walking to bathroom. Plan: Awake, sitting side of bed Denies shortness of breath at rest, mild shortness of breath when walking to bathroom Controlled Atrial fibrillation, Continue Eliquis Blood pressure controlled On Eliquis 5 mg BID,Lipitor 40 mg daily, Digoxin 0.125 mg daily, Lasix 40 mg daily, Cardizem 180 mg daily, Cozaar 100 mg daily Solu medrol 40 mg q 12 hours, Adempas 2.5 mg TID, Kdur 20 meq daily Continue current treatment Continue current medications MERLYN as out patient Lifestyle modification Weight reduction Will follow up Plan and treatment discussed with Dr. Zarate
[2018-10-27] MEDS: diltiaZEM 180 mg/24 Hours CD Cap PO SCH (09:52)
[2018-10-27] MEDS: MethylPREDNISolone 40 mg Vial IV SCH ×2 (09:53→22:47)
[2018-10-27] MEDS: RIOCIGUAT 2.5 MG PO SCH ×3 (09:55→17:09)
--- NOTE | 2018-10-27 10:50 | CP.PCM.PN ---
Subjective - Date & Time of Evaluation Date of Evaluation: 10/27/18 Time of Evaluation: 08:25 - Subjective Subjective: Hilario Villarrealingrid PGY2 - Heme/Onc Progress Note Patient seen and examined this AM. Patient respiratory status continues to show improvement. Test results are discussed with patient and goals of care including potential for IR consultation for thyroid mass bx discussed. Patient denies chest pain, abdominal pain, nausea, vomiting, fever, chills. Objective - Vital Signs/Intake and Output Vital Signs (last 24 hours): Temp Pulse Resp BP Pulse Ox 97.9 F 98 H 18 124/75 92 L 10/27/18 06:00 10/27/18 09:55 10/27/18 09:55 10/27/18 09:55 10/27/18 09:55 Intake and Output: 10/27/18 10/27/18 06:59 18:59 Intake Total 2476 Output Total 700 Balance 1776 - Medications Medications: Current Medications Apixaban (Eliquis) 5 mg PO BID [facility]; Protocol Last Admin: 10/27/18 09:52 Dose: 5 mg Atorvastatin Calcium (Lipitor) 40 mg PO HS [facility] Last Admin: 10/26/18 22:06 Dose: 40 mg Budesonide (Pulmicort Respules) 0.5 mg IH [id number] [facility] Last Admin: 10/27/18 07:41 Dose: 0.5 mg Clonazepam (Klonopin) 0.5 mg PO BID PRN; Protocol PRN Reason: Anxiety Digoxin (Digoxin) 0.125 mg PO 1400 [facility] Last Admin: 10/26/18 15:44 Dose: 0.125 mg Diltiazem HCl (Cardizem Cd) 180 mg PO DAILY [facility] Last Admin: 10/27/18 09:52 Dose: 180 mg Escitalopram Oxalate (Lexapro) 10 mg PO DAILY [facility] Last Admin: 10/27/18 09:53 Dose: 10 mg Furosemide (Lasix) 40 mg IV DAILY [facility] Last Admin: 10/27/18 09:54 Dose: 40 mg Gabapentin (Neurontin) 200 mg PO BID [facility]; Protocol Last Admin: 10/27/18 09:53 Dose: 200 mg Glipizide (Glucotrol) 10 mg PO ACBD [facility] Last Admin: 10/27/18 08:02 Dose: 10 mg Insulin Human Regular (Humulin R High) 0 units SC ACHS [facility]; Protocol Last Admin: 10/27/18 08:02 Dose: 7 units Ipratropium [place] (Atrovent) 0.5 mg IH TIDRESP [facility] Last Admin: 10/27/18 07:40 Dose: 0.5 mg Levalbuterol HCl (Xopenex) 0.63 mg IH TIDRESP [facility] Last Admin: 10/27/18 07:41 Dose: 0.63 mg Levalbuterol HCl (Xopenex) 0.63 mg IH [id number] PRN PRN Reason: Shortness of Breath Losartan Potassium (Cozaar) 100 mg PO DAILY [facility] Last Admin: 10/27/18 09:53 Dose: 100 mg Metformin HCl (Glucophage) 500 mg PO BID [facility] Last Admin: 10/27/18 09:52 Dose: 500 mg Methylprednisolone (Solu-Medrol) 40 mg IV Q12 [facility] Last Admin: 10/27/18 09:53 Dose: 40 mg Montelukast Sodium (Singulair) 10 mg PO HS [facility] Last Admin: 10/26/18 22:07 Dose: 10 mg Riociguat [Adempas] (2.5mg (Home Med)) 1 tab PO TID [facility] Last Admin: 10/27/18 09:55 Dose: 1 tab Pantoprazole Sodium (Protonix Ec Tab) 40 mg PO HS [facility] Last Admin: 10/26/18 22:06 Dose: 40 mg Potassium Chloride (K-Dur 20 Meq Er Tab) 20 meq PO BRK [facility] Last Admin: 10/27/18 08:02 Dose: 20 meq - Labs Labs: 10/27/18 06:30 10/27/18 06:30 PT 14.5 SECONDS (9.4-12.5) H 10/24/18 14:35 INR 1.31 10/24/18 14:35 APTT 35.1 Seconds (26.9-38.3) 10/24/18 14:35 - Constitutional Appears: Non-toxic, No Acute Distress, Older Than Stated Age - Head Exam Head Exam: ATRAUMATIC, NORMOCEPHALIC - Eye Exam Eye Exam: EOMI, PERRL - ENT Exam ENT Exam: Mucous Membranes Moist - Neck Exam Neck Exam: Full ROM - Respiratory Exam Respiratory Exam: Decreased Breath Sounds, NORMAL BREATHING PATTERN - Cardiovascular Exam Cardiovascular Exam: Irregular Rhythm, +S1, +S2 - GI/Abdominal Exam GI & Abdominal Exam: Soft, Normal Bowel Sounds. absent: Guarding, Rigid, Tenderness - Extremities Exam Extremities Exam: absent: Calf Tenderness, Pedal Edema - Neurological Exam Neurological Exam: Alert, Awake, Normal Gait, Oriented x3 Additional comments: motor and sensory grossly intact - Psychiatric Exam Psychiatric exam: Normal Affect, Normal Mood - Skin Skin Exam: Dry, Warm Assessment and Plan - Assessment and Plan (Free Text) Assessment: 68 yo F with PMH of osteoporosis (on prolia), pHTN, HTN, HLD, AFib (on eliquis), DM2, chronic low back pain, and L sided intra-ductal carcinoma (s/p L mastectomy in 2004, s/p chemo/XRT and s/p patient preference R mastectomy in ) admitted for dyspnea likely 2/2 asthma exacerbation and/or pulmonary HTN. Patient noted to have thyroid mass on CT that is currently under further investigation with assistance from General Surgery and IR. Plan: Dyspnea Recommend continuing optimal medical management Patient to follow up with Dr. 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 Benites has been following since 2004 Recommend continuing home eliquis for hx of AFib Right sided Thyroid Mass Identified on prior thyroid US Will need biopsy, given history General Surgery recommendations for outpatient biopsy Awaiting further recommendations from IR, Dr Benites to speak with Dr. Renard Russell Soft Tissue Neck CT: Right lobe enlargement that is anterior with small calcification noted Low TSH TSH low, Free T4 wnl , Free T3 low Possible subclinical hypothryoidism Patient follows up with pressure testing technician for DM2, patient instructed to follow up outpatient Further recommendations post biopsy and primary management Further recommendations per Dr. Benites
--- NOTE | 2018-10-27 12:30 | PN ---
DATE: 10/27/2018 PULMONARY PROGRESS NOTE REFERRING PHYSICIAN: Dr. Nabeel Drew. SUBJECTIVE: The patient is seen lying in bed. No acute distress. No overnight events reported. Reports feeling tired this morning, states she did not sleep well last night, did use CPAP machine last night. Reports having some shortness of breath with exertion. States that she still has cough, but it is better. No headache, rhinitis, chest pain, abdominal pain, nausea, vomiting, diarrhea, leg pain, or leg swelling reported. OBJECTIVE: GENERAL: No acute distress. VITAL SIGNS: Blood pressure 124/75, pulse 98, oxygen saturation 92, temperature 97.9, and O2 saturation 92% on CPAP. HEENT: Moist mucous membranes. NECK: Supple. No JVD. CARDIOVASCULAR: S1 and S2, irregular rhythm. RESPIRATORY: Fair airflow bilaterally. ABDOMEN: Soft and nontender. No distention. No organomegaly. EXTREMITIES: Trace bilateral lower extremity edema. NEUROLOGIC: Awake, alert and verbal. Follows commands. MEDICATIONS: Reviewed. Eliquis 5 mg twice a day, Lipitor 40 mg at bedtime, Pulmicort 0.5 mg inhalation every 12 hours, Klonopin 0.5 mg twice a day p.r.n., digoxin 0.125 mg daily, Cardizem 180 mg daily, Lexapro 10 mg daily, Lasix 40 mg IV daily, Neurontin 200 mg twice a day, glipizide 10 mg a.c., Humulin R sliding scale a.c. and at bedtime, Atrovent 0.5 mg inhalation three times a day, Xopenex 0.63 mg inhalation every 6 hours p.r.n., Xopenex 0.63 mg inhalation three times a day, Cozaar 100 mg daily, Glucophage 500 mg twice a day, Solu-Medrol 40 mg every 12 hours, Singulair 10 mg at bedtime, Adempas 1 tablet three times a day, Protonix 40 mg at bedtime, and potassium chloride 20 mEq at breakfast. LABORATORY DATA: Reviewed. WBC 11.2, RBC 4.23, hemoglobin 11.8, hematocrit 37.5, and platelets 211. Sodium 136, potassium 4.3, chloride 98, carbon dioxide 27, anion gap 16, BUN 21, creatinine 0.4, GFR greater than 60, POC glucose 273, random glucose 291, calcium 9.2, phosphorus 2.9, magnesium 1.7, total bilirubin 0.3, AST 17, ALT 22, alkaline phosphatase 45, total protein 7.2, albumin 4.0, globulin 3.1 and albumin-globulin ratio 1.3. Triglycerides 161, cholesterol 154, LDL cholesterol 85, and HDL cholesterol 51. Echocardiogram shows ejection fraction 65%, AFib, mitral regurgitation, mild to moderate tricuspid regurgitation, RVSP 55, moderate pulmonary hypertension, possible moderate to severe valvular aortic stenosis. No agitation or thrombus. IMPRESSION AND PLAN: Asthma exacerbation, sleep apnea syndrome, pulmonary hypertension, atrial fibrillation with rapid ventricular response, diabetes mellitus, hypertension, hyperlipidemia, pulmonary nodules on CAT scan, possible radiation-induced pneumonitis or chronic lung disease inflammatory process. The patient will need followup CT scan in three to four months to follow up on stability of nodules. 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 Chronic lung disease could be contributing to shortness of breath. Will need pulmonary function test as outpatient so that we are able to optimize pulmonary medications. Continue continuous positive airway pressure use at bedtime, sleep apnea precaution, head of bed elevated at 45 degrees, and gastric prophylaxis. Currently on anticoagulation therapy. Continue inhaled bronchodilators and fall precautions. We will decrease Solu-Medrol to 20 mg every 12 hours. This patient was seen and examined with Dr. Holloway. Discussed assessment and plan as described above. This patient was seen and examined by Kevin Randolph, nurse practitioner. Discussed assessment and plan as described above. Thank you for this consult. We will follow with you. Kevin Randolph APN Anthony Holloway MD NEEL
--- NOTE | 2018-10-27 14:09 | CP.PCM.APN ---
Subjective - Date & Time of Evaluation Date of Evaluation: 10/27/18 Time of Evaluation: 11:55 - Subjective Subjective: pt seen and examined at bedside, pt reports feeling better than yesterday . less SOB today Review of Systems - Review of Systems All systems: reviewed and no additional remarkable complaints except Objective - Vital Signs/Intake and Output Vital Signs (last 24 hours): Temp Pulse Resp BP Pulse Ox 97.9 F 120 H 18 124/75 92 L 10/27/18 06:00 10/27/18 10:00 10/27/18 09:55 10/27/18 09:55 10/27/18 09:55 Intake and Output: 10/27/18 10/27/18 06:59 18:59 Intake Total 2476 Output Total 700 Balance 1776 - Medications Medications: Current Medications Apixaban (Eliquis) 5 mg PO BID [facility]; Protocol Last Admin: 10/27/18 09:52 Dose: 5 mg Atorvastatin Calcium (Lipitor) 40 mg PO HS [facility] Last Admin: 10/26/18 22:06 Dose: 40 mg Budesonide (Pulmicort Respules) 0.5 mg IH [id number] [facility] Last Admin: 10/27/18 07:41 Dose: 0.5 mg Clonazepam (Klonopin) 0.5 mg PO BID PRN; Protocol PRN Reason: Anxiety Digoxin (Digoxin) 0.125 mg PO 1400 [facility] Last Admin: 10/26/18 15:44 Dose: 0.125 mg Diltiazem HCl (Cardizem Cd) 180 mg PO DAILY [facility] Last Admin: 10/27/18 09:52 Dose: 180 mg Escitalopram Oxalate (Lexapro) 10 mg PO DAILY [facility] Last Admin: 10/27/18 09:53 Dose: 10 mg Furosemide (Lasix) 40 mg IV DAILY [facility] Last Admin: 10/27/18 09:54 Dose: 40 mg Gabapentin (Neurontin) 200 mg PO BID [facility]; Protocol Last Admin: 10/27/18 09:53 Dose: 200 mg Glipizide (Glucotrol) 10 mg PO ACBD [facility] Last Admin: 10/27/18 08:02 Dose: 10 mg Insulin Human Regular (Humulin R High) 0 units SC ACHS [facility]; Protocol Last Admin: 10/27/18 12:21 Dose: 4 units Ipratropium [place] (Atrovent) 0.5 mg IH TIDRESP [facility] Last Admin: 10/27/18 13:32 Dose: 0.5 mg Levalbuterol HCl (Xopenex) 0.63 mg IH TIDRESP [facility] Last Admin: 10/27/18 13:32 Dose: 0.63 mg Levalbuterol HCl (Xopenex) 0.63 mg IH [id number] PRN PRN Reason: Shortness of Breath Losartan Potassium (Cozaar) 100 mg PO DAILY [facility] Last Admin: 10/27/18 09:53 Dose: 100 mg Metformin HCl (Glucophage) 500 mg PO BID [facility] Last Admin: 10/27/18 09:52 Dose: 500 mg Methylprednisolone (Solu-Medrol) 20 mg IV Q12 [facility] Montelukast Sodium (Singulair) 10 mg PO HS [facility] Last Admin: 10/26/18 22:07 Dose: 10 mg Riociguat [Adempas] (2.5mg (Home Med)) 1 tab PO TID [facility] Last Admin: 10/27/18 09:55 Dose: 1 tab Pantoprazole Sodium (Protonix Ec Tab) 40 mg PO HS [facility] Last Admin: 10/26/18 22:06 Dose: 40 mg Potassium Chloride (K-Dur 20 Meq Er Tab) 20 meq PO BRK [facility] Last Admin: 10/27/18 08:02 Dose: 20 meq - Labs Labs: 10/27/18 06:30 10/27/18 06:30 PT 14.5 SECONDS (9.4-12.5) H 10/24/18 14:35 INR 1.31 10/24/18 14:35 APTT 35.1 Seconds (26.9-38.3) 10/24/18 14:35 - Constitutional Appears: No Acute Distress - Head Exam Head Exam: NORMOCEPHALIC - Eye Exam Eye Exam: Normal appearance - Cardiovascular Exam Cardiovascular Exam: Irregular Rhythm, +S1, +S2 Additional comments: afib - Neurological Exam Neurological Exam: Alert, Awake, Oriented x3 - Psychiatric Exam Psychiatric exam: Normal Affect, Normal Mood - Skin Skin Exam: Dry, Intact Assessment and Plan - Assessment and Plan (Free Text) Plan: ITS Impressions Abnormal Lab Results 10/26/18 10/26/18 10/26/18 06:30 06:30 16:08 WBC RBC Hgb Hct MCV MCH MCHC RDW Plt Count MPV Neut % (Auto) Lymph % (Auto) [place] % (Auto) Eos % (Auto) Baso % (Auto) Lymph # (Auto) [place] # (Auto) Eos # (Auto) Baso # (Auto) Absolute Neuts (auto) Sodium Potassium Chloride Carbon Dioxide Anion Gap BUN Creatinine Est GFR ( Amer) Est GFR (Non-Af Amer) POC Glucose (mg/dL) 244 H Random Glucose Hemoglobin A1c Calcium Phosphorus Magnesium Total Bilirubin AST ALT Alkaline Phosphatase Total Protein Albumin Globulin Albumin/Globulin Ratio Triglycerides Cholesterol LDL Cholesterol Direct HDL Cholesterol Free T4 0.99 Free T3 pg/mL 2.43 L Urine Color Urine Appearance Urine pH Ur Specific [place] Urine Protein Urine Glucose (UA) Urine Ketones Urine Blood Urine Nitrate Urine Bilirubin Urine Urobilinogen Ur Leukocyte Esterase 10/26/18 10/27/18 10/27/18 21:17 06:00 06:30 WBC 11.2 H D RBC 4.22 Hgb 11.8 L Hct 37.5 MCV 88.9 MCH 28.0 MCHC 31.5 RDW 16.9 H Plt Count 211 MPV 11.6 H Neut % (Auto) 86.9 H Lymph % (Auto) 10.6 L [place] % (Auto) 2.4 Eos % (Auto) 0.0 L Baso % (Auto) 0.1 Lymph # (Auto) 1.2 [place] # (Auto) 0.3 Eos # (Auto) 0.0 Baso # (Auto) 0.01 Absolute Neuts (auto) 9.77 H Sodium Potassium Chloride Carbon Dioxide Anion Gap BUN Creatinine Est GFR ( Amer) Est GFR (Non-Af Amer) POC Glucose (mg/dL) 271 H Random Glucose Hemoglobin A1c Calcium Phosphorus Magnesium Total Bilirubin AST ALT Alkaline Phosphatase Total Protein Albumin Globulin Albumin/Globulin Ratio Triglycerides Cholesterol LDL Cholesterol Direct HDL Cholesterol Free T4 Free T3 pg/mL Urine Color Yellow Urine Appearance Clear Urine pH 6.0 Ur Specific Ewen <= 1.005 Urine Protein Negative Urine Glucose (UA) Negative Urine Ketones Negative Urine Blood Negative Urine Nitrate Negative Urine Bilirubin Negative Urine Urobilinogen 0.2 Ur Leukocyte Esterase Negative 10/27/18 10/27/18 10/27/18 06:30 06:30 07:27 WBC RBC Hgb Hct MCV MCH MCHC RDW Plt Count MPV Neut % (Auto) Lymph % (Auto) [place] % (Auto) Eos % (Auto) Baso % (Auto) Lymph # (Auto) [place] # (Auto) Eos # (Auto) Baso # (Auto) Absolute Neuts (auto) Sodium 136 Potassium 4.3 Chloride 98 Carbon Dioxide 27 Anion Gap 16 BUN 21 Creatinine 0.4 L Est GFR ( Amer) > 60 Est GFR (Non-Af Amer) > 60 POC Glucose (mg/dL) 273 H Random Glucose 291 H Hemoglobin A1c 7.1 H Calcium 9.2 Phosphorus 2.9 Magnesium 1.7 Total Bilirubin 0.3 AST 17 ALT 22 Alkaline Phosphatase 45 Total Protein 7.2 Albumin 4.0 Globulin 3.1 Albumin/Globulin Ratio 1.3 Triglycerides 161 H Cholesterol 154 LDL Cholesterol Direct 85 HDL Cholesterol 51 Free T4 Free T3 pg/mL Urine Color Urine Appearance Urine pH Ur Specific [place]wen Urine Protein Urine Glucose (UA) Urine Ketones Urine Blood Urine Nitrate Urine Bilirubin Urine Urobilinogen Ur Leukocyte Esterase 10/27/18 11:17 WBC RBC Hgb Hct MCV MCH MCHC RDW Plt Count MPV Neut % (Auto) Lymph % (Auto) [place] % (Auto) Eos % (Auto) Baso % (Auto) Lymph # (Auto) [place] # (Auto) Eos # (Auto) Baso # (Auto) Absolute Neuts (auto) Sodium Potassium Chloride Carbon Dioxide Anion Gap BUN Creatinine Est GFR ( Amer) Est GFR (Non-Af Amer) POC Glucose (mg/dL) 211 H Random Glucose Hemoglobin A1c Calcium Phosphorus Magnesium Total Bilirubin AST ALT Alkaline Phosphatase Total Protein Albumin Globulin Albumin/Globulin Ratio Triglycerides Cholesterol LDL Cholesterol Direct HDL Cholesterol Free T4 Free T3 pg/mL Urine Color Urine Appearance Urine pH Ur Specific [place]wen Urine Protein Urine Glucose (UA) Urine Ketones Urine Blood Urine Nitrate Urine Bilirubin Urine Urobilinogen Ur Leukocyte Esterase Chest X-Ray 10/24/18 13:30 IMPRESSION: No active disease. No significant interval change compared to the prior examination(s). Chest CT 10/24/18 15:38 Impression: No large central or segmental pulmonary embolus identified. Numerous scattered pulmonary nodules measuring up to 4 mm; according to the 2017 Fleischner criteria, the patient is high risk, an optional CT at 12 months is recommended. Status post bilateral mastectomy with right breast prosthesis present. Partially imaged thyroid gland demonstrates enlarged heterogeneous right and diminutive left thyroid gland with bilateral calcifications. Soft Tissue Neck CT 10/25/18 14:40 IMPRESSION: There is enlargement of the right lobe of the thyroid. There is a small calcification in the right lobe. There is a thyroid nodule along the anterior surface. The left lobe is unremarkable. 68 yr old white female with pmh sig for afib, anxiety, bilateral breast ca s/p mastectomy ( left 2004, right 2016), asthma, Non-obstructive cad, pulmonary hypertension admit with sob, chest tightness, PINEDA now admitted with pulmonary, cardiology, renal , IR and heme/oncology consultations for further evaluation. Pt found to have enlargement of the right lobe of the thyroid on ct [facility] and biopsy is pending. consultatants and IDT notes and recommendations reviewed. pt for continued optimization of medical therapy on IV lasix and IV steriod regimen which is being tapering in progress. Plan of care discussed in IDT rounds. discuss with IR- pt on for thyroid biopsy tomorrow at 1pm (hold Eliquis??) will follow clinical course BPCI/TIC - BPCIA/TIC Educated pt/family on BPCIA/CIR/Med to Bed Programs: N/A Flyers given, including [facility] Beneficiary letter: N/A Pt/family verbalized understanding & agreed to program: N/A
[2018-10-27] MEDS: Digoxin 125 mcg (0.125 mg) Tab PO SCH (14:15)
--- NOTE | 2018-10-27 16:23 | PN ---
DATE: 10/27/2018 SUBJECTIVE: The patient is a 68-year-old, seen and examined, sitting in chair. Complains of exertional dyspnea. She states she goes to the bathroom and get short of breath very easily. Denies any chest pain. No fever or chills. Eating and tolerating. PHYSICAL EXAMINATION VITAL SIGNS: She is afebrile. Pulse 120, respirations 18 and blood pressure 124/75. LUNGS: Bilateral fair airflow. Occasional rhonchi. HEART: S1 and S2 audible. ABDOMEN: Soft and nontender. No rebound. No guarding. NEUROLOGIC: The patient is awake and alert, able to communicate. EXTREMITIES: Bilateral legs no edema. LABORATORY DATA: WBC is 11.2, hemoglobin 11.8, hematocrit 37.5 and platelets 211. Chemistry; sodium 136, potassium 4.3, chloride 98, CO2 of 27, BUN 21, creatinine 0.4, blood sugar 211. She had CT scan of the neck done that shows thyroid nodule and right lobe of the thyroid, there is a small calcification in the right lobe. There is a thyroid nodule along the anterior surface. The left lobe is unremarkable. ASSESSMENT: 1. History of cancer of breast, status post bilateral mastectomy. 2. Chronic obstructive pulmonary disease. 3. Hypertension. 4. Chronic atrial fibrillation, on Eliquis. 5. Pulmonary hypertension. 6. Morbid obesity. 7. Bilateral mastectomy. 8. Hyperlipidemia. 9. Insulin-dependant diabetes, status post cardiac cath. The patient has a diffuse disease due to in right coronary artery and ejection fraction 55% to 60%, . PLAN: The patient did not have active wheezing, we will cut down steroid. She is currently on Atrovent and Cardizem. She is on losartan and digoxin and maintained her on Eliquis. She is on glipizide 10 mg twice a day. She was on Lasix 40 daily and Protonix 40 daily. Her steroid has been cut down from 40 twice a day to 20 twice a day. Spoke to Dr. Benites, plan is for her to do thyroid nodule biopsy and after then she can be transferred to TCU if accepted, otherwise she can be sent home with home therapy and she will followup with Dr. Benites. Nabeel Drew MD [facility] # [id number]
[2018-10-27] MEDS: Pantoprazole 40 mg EC Tab PO SCH (22:46)
--- NOTE | 2018-10-27 23:40 | PN ---
DATE: 10/27/2018 SUBJECTIVE: The patient is seen sitting in the chair. She is awake. She is alert. She reports that her lower extremity edema is much improved. She denies any chest pain. PHYSICAL EXAMINATION: GENERAL: Obese, elderly lady, sitting in chair. VITAL SIGNS: Blood pressure 107/67, heart rate 92, respiratory rate 20, temperature 98.2. HEENT: Normocephalic, atraumatic. Positive pallor. NECK: Supple, no JVD. LUNGS: Bilateral equal entry, bilateral equal expansion. CARDIAC: S1, S2, regular rate and rhythm. No murmur, no rub. ABDOMEN: Obese, distended, soft, nontender, bowel sounds present. EXTREMITIES: Lower extremity edema. INTAKE AND OUTPUT: 1945/1616. LABORATORY DATA: WBC 11, hemoglobin 11.8, hematocrit 37.5, platelets 211. Sodium 136, potassium 4.3, chloride 98, CO2 of 27, BUN 21, creatinine 0.4, glucose 291, calcium 9.2, phosphorus 2.9, magnesium 1.7, A1c 7.1, albumin 4. Urinalysis: Yellow, clear, pH 6, specific gravity less than 1.005, no protein, no blood. CURRENT MEDICATIONS: Atrovent, Cardizem CD 180 mg, losartan 100 mg, digoxin 0.125 mg, Glucophage 500 mg b.i.d., Glucotrol 10 mg with breakfast and dinner, potassium 20 mEq daily, Klonopin, Lasix 40 mg IV daily, Lexapro, Lipitor, Neurontin, Protonix, Adempas, Singulair, Solu-Medrol, Xopenex. ASSESSMENT: 1. History of breast cancer; left breast 2004, right breast 2016. 2. Moderate pulmonary hypertension. 3. Kmy-gvlgaks-vbfeyusro diabetes mellitus. 4. Hypertension. 5. Obesity. 6. Chronic lower extremity edema. 7. Oliguria ? PLAN: 1. Follow up 24-hour urine for protein and creatinine clearance. 2. There is no proteinuria on urinalysis. 3. Switch Lasix to 40 mg p.o. daily. Antonia Price MD [facility] # [id number]
--- NOTE | 2018-10-28 05:57 | CP.PCM.PN ---
Subjective - Date & Time of Evaluation Date of Evaluation: 10/28/18 Time of Evaluation: 06:25 - Subjective Subjective: Easily awaken, lying in bed, denies shortness of breath Reason for consultation and follow up:Cardiac evaluation of shortness of breath, history of atrial fibrillation, non obstructive coronary artery disease, pulmonary hypertension Seen and examined by me and Dr. Zarate Objective - Vital Signs/Intake and Output Vital Signs (last 24 hours): Temp Pulse Resp BP Pulse Ox 97.9 F 91 H 20 109/71 93 L 10/28/18 00:01 10/28/18 02:00 10/28/18 00:01 10/28/18 00:01 10/28/18 00:01 Intake and Output: 10/27/18 10/28/18 18:59 06:59 Intake Total 1940 Output Total 1660 Balance 280 - Medications Medications: Current Medications Apixaban (Eliquis) 5 mg PO BID [facility]; Protocol Last Admin: 10/27/18 09:52 Dose: 5 mg Atorvastatin Calcium (Lipitor) 40 mg PO HS [facility] Last Admin: 10/27/18 22:46 Dose: 40 mg Budesonide (Pulmicort Respules) 0.5 mg IH [id number] [facility] Last Admin: 10/27/18 19:39 Dose: 0.5 mg Clonazepam (Klonopin) 0.5 mg PO BID PRN; Protocol PRN Reason: Anxiety Digoxin (Digoxin) 0.125 mg PO 1400 [facility] Last Admin: 10/27/18 14:15 Dose: 0.125 mg Diltiazem HCl (Cardizem Cd) 180 mg PO DAILY [facility] Last Admin: 10/27/18 09:52 Dose: 180 mg Escitalopram Oxalate (Lexapro) 10 mg PO DAILY [facility] Last Admin: 10/27/18 09:53 Dose: 10 mg Furosemide (Lasix) 40 mg PO DAILY [facility] Gabapentin (Neurontin) 200 mg PO BID [facility]; Protocol Last Admin: 10/27/18 17:07 Dose: 200 mg Glipizide (Glucotrol) 10 mg PO ACBD [facility] Last Admin: 10/27/18 17:08 Dose: 10 mg Insulin Human Regular (Humulin R High) 0 units SC ACHS [facility]; Protocol Last Admin: 10/27/18 22:47 Dose: 3 units Ipratropium [place] (Atrovent) 0.5 mg IH TIDRESP [facility] Last Admin: 10/27/18 19:39 Dose: 0.5 mg Levalbuterol HCl (Xopenex) 0.63 mg IH TIDRESP [facility] Last Admin: 10/27/18 19:39 Dose: 0.63 mg Levalbuterol HCl (Xopenex) 0.63 mg IH [id number] PRN PRN Reason: Shortness of Breath Losartan Potassium (Cozaar) 100 mg PO DAILY [facility] Last Admin: 10/27/18 09:53 Dose: 100 mg Metformin HCl (Glucophage) 500 mg PO BID [facility] Last Admin: 10/27/18 17:08 Dose: 500 mg Methylprednisolone (Solu-Medrol) 20 mg IV Q12 [facility] Last Admin: 10/27/18 22:47 Dose: 20 mg Montelukast Sodium (Singulair) 10 mg PO HS [facility] Last Admin: 10/27/18 22:46 Dose: 10 mg Riociguat [Adempas] (2.5mg (Home Med)) 1 tab PO TID [facility] Last Admin: 10/27/18 17:09 Dose: 1 tab Pantoprazole Sodium (Protonix Ec Tab) 40 mg PO HS [facility] Last Admin: 10/27/18 22:46 Dose: 40 mg Potassium Chloride (K-Dur 20 Meq Er Tab) 20 meq PO BRK [facility] Last Admin: 10/27/18 08:02 Dose: 20 meq - Labs Labs: 10/27/18 06:30 10/27/18 06:30 PT 14.5 SECONDS (9.4-12.5) H 10/24/18 14:35 INR 1.31 10/24/18 14:35 APTT 35.1 Seconds (26.9-38.3) 10/24/18 14:35 - Constitutional Appears: Non-toxic, No Acute Distress - Head Exam Head Exam: NORMAL INSPECTION, NORMOCEPHALIC - Eye Exam Eye Exam: Normal appearance Pupil Exam: NORMAL ACCOMODATION - ENT Exam ENT Exam: Mucous Membranes Moist, Normal Exam - Respiratory Exam Respiratory Exam: Decreased Breath Sounds, NORMAL BREATHING PATTERN - Cardiovascular Exam Cardiovascular Exam: Irregular Rhythm, +S1, +S2 Additional comments: telemetry atrial fibrillation - GI/Abdominal Exam GI & Abdominal Exam: Soft, Normal Bowel Sounds - Extremities Exam Extremities Exam: Full ROM, Normal Capillary Refill - Neurological Exam Neurological Exam: Alert, Awake, Oriented x3 - Psychiatric Exam Psychiatric exam: Normal Affect, Normal Mood - Skin Skin Exam: Dry, Normal Color, Warm Assessment and Plan - Assessment and Plan (Free Text) Assessment: A 68 year old female morbidly obese who came in to the ER due to shortness of breath x 1 day. Just recently completed antibiotics for upper respiratory infection. History of chronic A-fib,on Eliquis, pulmonary hypertension, Asthma, sleep apnea, breast cancer post mastectomy (2004,2016),follows up with Dr. Benites. hypertension, COPD, diabetes, hyperlipidemia. Cardiac cath on 12/16/17 showed non obstructive coronary artery disease, distal R PDA diffuse disease 55%, LVEF 55-60%. Echo was done and showed LVEF 65%, (Atrial fib), mild to moderate mitral regurgitation, moderate tricuspid regurgitation, RVSP 55 mmHg, moderate pulmonary hypertension, Dilated RA/RV/LA. possible moderate to severe aortic stenosis. Consider [facility] to evaluate severity of aortic stenosis. [facility] as out patient. Severe pulmonary hypertension, on Adempas. Denies shortness of breath. For thyroid biopsy, cleared for procedure with moderate-high risk. No absolute contraindication. Eliquis was held since 10/26/18. Plan: For thyroid biopsy today Cleared with moderate to high risk No distress, Denies shortness of breath Controlled Atrial fibrillation Blood pressure controlled On Lipitor 40 mg daily, Digoxin 0.125 mg daily, Lasix 40 mg daily, Cardizem 180 mg daily, Cozaar 100 mg daily Solu medrol 40 mg q 12 hours, Adempas 2.5 mg TID, Kdur 20 meq daily Continue current treatment Continue current medications Lifestyle modification Weight reduction Will follow up Plan and treatment discussed with Dr. Zarate
[2018-10-28 07:10] VITALS: BMI 46.4
[2018-10-28] MEDS: Insulin Reg-HIGH-Coverage SC SCH ×4 (07:59→21:31)
[2018-10-28] MEDS: Potassium Chloride 20 mEq ER Tab PO SCH (07:59)
--- NOTE | 2018-10-28 08:06 | CP.PCM.PN ---
Subjective - Date & Time of Evaluation Date of Evaluation: 10/28/18 Time of Evaluation: 05:00 - Subjective Subjective: S: Patient was seen for constipation. She had Colace for constipation yesterday which seems to have not helped her. Asks something else. Has no other complaints. Pertinent medical record was reviewed. O:VSS. Obese person. Not in acute distress. LUNGS: Normal breathing pattern. A:Constipation. P:Lactulose as ordered. Objective - Vital Signs/Intake and Output Vital Signs (last 24 hours): Temp Pulse Resp BP Pulse Ox 98.2 F 108 H 20 123/80 93 L 10/28/18 06:00 10/28/18 06:00 10/28/18 06:00 10/28/18 06:00 10/28/18 06:00 Intake and Output: 10/28/18 10/28/18 06:59 18:59 Intake Total 2780 Output Total 2210 Balance 570 - Medications Medications: Current Medications Apixaban (Eliquis) 5 mg PO BID [facility]; Protocol Last Admin: 10/27/18 09:52 Dose: 5 mg Atorvastatin Calcium (Lipitor) 40 mg PO HS [facility] Last Admin: 10/27/18 22:46 Dose: 40 mg Budesonide (Pulmicort Respules) 0.5 mg IH [id number] [facility] Last Admin: 10/27/18 19:39 Dose: 0.5 mg Clonazepam (Klonopin) 0.5 mg PO BID PRN; Protocol PRN Reason: Anxiety Digoxin (Digoxin) 0.125 mg PO 1400 [facility] Last Admin: 10/27/18 14:15 Dose: 0.125 mg Diltiazem HCl (Cardizem Cd) 180 mg PO DAILY [facility] Last Admin: 10/27/18 09:52 Dose: 180 mg Escitalopram Oxalate (Lexapro) 10 mg PO DAILY [facility] Last Admin: 10/27/18 09:53 Dose: 10 mg Furosemide (Lasix) 40 mg PO DAILY [facility] Gabapentin (Neurontin) 200 mg PO BID [facility]; Protocol Last Admin: 10/27/18 17:07 Dose: 200 mg Glipizide (Glucotrol) 10 mg PO ACBD [facility] Last Admin: 10/28/18 07:59 Dose: 10 mg Insulin Human Regular (Humulin R High) 0 units SC [facility]; Protocol Last Admin: 10/28/18 07:59 Dose: 4 units Ipratropium [place] (Atrovent) 0.5 mg IH TIDRESP [facility] Last Admin: 10/27/18 19:39 Dose: 0.5 mg Levalbuterol HCl (Xopenex) 0.63 mg IH TIDRESP [facility] Last Admin: 10/27/18 19:39 Dose: 0.63 mg Levalbuterol HCl (Xopenex) 0.63 mg IH [id number] PRN PRN Reason: Shortness of Breath Losartan Potassium (Cozaar) 100 mg PO DAILY [facility] Last Admin: 10/27/18 09:53 Dose: 100 mg Metformin HCl (Glucophage) 500 mg PO BID [facility] Last Admin: 10/27/18 17:08 Dose: 500 mg Methylprednisolone (Solu-Medrol) 20 mg IV Q12 [facility] Last Admin: 10/27/18 22:47 Dose: 20 mg Montelukast Sodium (Singulair) 10 mg PO HS [facility] Last Admin: 10/27/18 22:46 Dose: 10 mg Riociguat [Adempas] (2.5mg (Home Med)) 1 tab PO TID [facility] Last Admin: 10/27/18 17:09 Dose: 1 tab Pantoprazole Sodium (Protonix Ec Tab) 40 mg PO HS [facility] Last Admin: 10/27/18 22:46 Dose: 40 mg Potassium Chloride (K-Dur 20 Meq Er Tab) 20 meq PO BRK [facility] Last Admin: 10/28/18 07:59 Dose: 20 meq - Labs Labs: 10/27/18 06:30 10/27/18 06:30 PT 14.5 SECONDS (9.4-12.5) H 10/24/18 14:35 INR 1.31 10/24/18 14:35 APTT 35.1 Seconds (26.9-38.3) 10/24/18 14:35
[2018-10-28] MEDS: Levalbuterol 0.63 MG/3 ML Inhal Soln UD IH SCH ×3 (08:11→19:47)
[2018-10-28] MEDS: Ipratropium 0.02% Inhal Soln (0.5 mg/2.5 ml) UD IH SCH ×3 (08:11→19:47)
[2018-10-28] MEDS: Budesonide 0.5 mg/2 ml Inhal Susp UD IH SCH ×2 (08:11→19:47)
--- NOTE | 2018-10-28 08:35 | CP.PCM.PN ---
Subjective - Date & Time of Evaluation Date of Evaluation: 10/28/18 Time of Evaluation: 08:34 - Subjective Subjective: Hilario Walters PGY2 - Heme/Onc Progress Note No acute events reported overnight. Respirations stable, improved from admission. Awaiting tentative biopsy. Admits to continued phlegm production. Denies chest pain, abdominal pain, nausea, vomiting, fever, chills. Objective - Vital Signs/Intake and Output Vital Signs (last 24 hours): Temp Pulse Resp BP Pulse Ox 98.2 F 108 H 20 123/80 93 L 10/28/18 06:00 10/28/18 06:00 10/28/18 06:00 10/28/18 06:00 10/28/18 06:00 Intake and Output: 10/28/18 10/28/18 06:59 18:59 Intake Total 2780 Output Total 2210 Balance 570 - Medications Medications: Current Medications Apixaban (Eliquis) 5 mg PO BID [facility]; Protocol Last Admin: 10/27/18 09:52 Dose: 5 mg Atorvastatin Calcium (Lipitor) 40 mg PO HS [facility] Last Admin: 10/27/18 22:46 Dose: 40 mg Budesonide (Pulmicort Respules) 0.5 mg IH [id number] [facility] Last Admin: 10/28/18 08:11 Dose: 0.5 mg Clonazepam (Klonopin) 0.5 mg PO BID PRN; Protocol PRN Reason: Anxiety Digoxin (Digoxin) 0.125 mg PO 1400 [facility] Last Admin: 10/27/18 14:15 Dose: 0.125 mg Diltiazem HCl (Cardizem Cd) 180 mg PO DAILY [facility] Last Admin: 10/27/18 09:52 Dose: 180 mg Escitalopram Oxalate (Lexapro) 10 mg PO DAILY [facility] Last Admin: 10/27/18 09:53 Dose: 10 mg Furosemide (Lasix) 40 mg PO DAILY [facility] Gabapentin (Neurontin) 200 mg PO BID [facility]; Protocol Last Admin: 10/27/18 17:07 Dose: 200 mg Glipizide (Glucotrol) 10 mg PO ACBD [facility] Last Admin: 10/28/18 07:59 Dose: 10 mg Insulin Human Regular (Humulin R High) 0 units SC ACHS [facility]; Protocol Last Admin: 10/28/18 07:59 Dose: 4 units Ipratropium [place] (Atrovent) 0.5 mg IH TIDRESP [facility] Last Admin: 10/28/18 08:11 Dose: 0.5 mg Levalbuterol HCl (Xopenex) 0.63 mg IH TIDRESP [facility] Last Admin: 10/28/18 08:11 Dose: 0.63 mg Levalbuterol HCl (Xopenex) 0.63 mg IH [id number] PRN PRN Reason: Shortness of Breath Losartan Potassium (Cozaar) 100 mg PO DAILY [facility] Last Admin: 10/27/18 09:53 Dose: 100 mg Metformin HCl (Glucophage) 500 mg PO BID [facility] Last Admin: 10/27/18 17:08 Dose: 500 mg Methylprednisolone (Solu-Medrol) 20 mg IV Q12 [facility] Last Admin: 10/27/18 22:47 Dose: 20 mg Montelukast Sodium (Singulair) 10 mg PO HS [facility] Last Admin: 10/27/18 22:46 Dose: 10 mg Riociguat [Adempas] (2.5mg (Home Med)) 1 tab PO TID [facility] Last Admin: 10/27/18 17:09 Dose: 1 tab Pantoprazole Sodium (Protonix Ec Tab) 40 mg PO HS [facility] Last Admin: 10/27/18 22:46 Dose: 40 mg Potassium Chloride (K-Dur 20 Meq Er Tab) 20 meq PO BRK [facility] Last Admin: 10/28/18 07:59 Dose: 20 meq - Labs Labs: 10/27/18 06:30 10/27/18 06:30 PT 14.5 SECONDS (9.4-12.5) H 10/24/18 14:35 INR 1.31 10/24/18 14:35 APTT 35.1 Seconds (26.9-38.3) 10/24/18 14:35 - Constitutional Appears: No Acute Distress - Head Exam Head Exam: ATRAUMATIC, NORMOCEPHALIC - Eye Exam Eye Exam: EOMI, PERRL - ENT Exam ENT Exam: Mucous Membranes Moist - Neck Exam Neck Exam: Full ROM - Respiratory Exam Respiratory Exam: Decreased Breath Sounds, NORMAL BREATHING PATTERN - Cardiovascular Exam Cardiovascular Exam: Irregular Rhythm, +S1, +S2 - GI/Abdominal Exam GI & Abdominal Exam: Soft, Normal Bowel Sounds. absent: Tenderness - Extremities Exam Extremities Exam: absent: Calf Tenderness - Neurological Exam Neurological Exam: Alert, Awake, Normal Gait, Oriented x3 - Psychiatric Exam Psychiatric exam: Normal Affect, Normal Mood - Skin Skin Exam: Dry, Warm Assessment and Plan - Assessment and Plan (Free Text) Assessment: 68 yo F with PMH of osteoporosis (on prolia), pHTN, HTN, HLD, AFib (on eliquis), DM2, chronic low back pain, and L sided intra-ductal carcinoma (s/p L mastectomy in 2004, s/p chemo/XRT and s/p patient preference R mastectomy in 2017) admitted for dyspnea likely 2/2 asthma exacerbation and/or pulmonary HTN. Patient noted to have thyroid mass on CT that is currently under further investigation with assistance from General Surgery and IR. Plan: Dyspnea-improved Recommend continuing optimal medical management Patient to follow up with Dr. 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 Benites
[2018-10-28 08:53] LABS: U CREAT 24HOUR URINE 875.5 MG/24HR (800-1800)
[2018-10-28 08:57] LABS: URINE 24 HOUR TOTAL PROTEIN 232 mg/24HR (42-225); URINE TOTAL VOLUME 2575 mL (800-1400)
--- NOTE | 2018-10-28 08:58 | CP.PCM.PN ---
Subjective - Date & Time of Evaluation Date of Evaluation: 10/28/18 Time of Evaluation: 07:45 - Subjective Subjective: Kush Bocanegra- Internal Medicine Resident- Progress Note on Behalf Dr. Munoz Subjective: Patient seen and examined at bedside. No acute events overnight. States SOB has improved relative to baseline. States she has not experienced bowel movement in 2 days. Denies fever, chills, chest pain, SOB, abdominal pain, nausea, vomiting, diarrhea, and urinary symptoms. 12 point ROS negative except as indicated HPI Physical Examination: - Constitutional Appears: Non-toxic, No Acute Distress - Head Exam Head Exam: ATRAUMATIC, NORMOCEPHALIC - Eye Exam Eye Exam: EOMI, PERRL - ENT Exam ENT Exam: Mucous Membranes Moist - Neck Exam Neck exam: Positive for: Full Rom, Normal Inspection - Respiratory Exam Respiratory Exam: Wheezes (end expiratory wheezes b/l). absent: Accessory Muscle Use, Rales, Rhonchi, Respiratory Distress - Cardiovascular Exam Cardiovascular Exam: REGULAR RHYTHM, RRR, +S1, +S2. absent: Diastolic murmur, Gallop, Rubs, Systolic Murmur - GI/Abdominal Exam GI & Abdominal Exam: Normal Bowel Sounds. absent: Guarding, Rebound, Tenderness - Extremities Exam Extremities exam: no clubbing, no cyanosis - Neurological Exam Neurological exam: Alert, Oriented x3 - Psychiatric Exam Psychiatric exam: Normal Affect, Normal Mood - Skin Skin Exam: Dry, Intact, Warm Assessment and Plan: Asthma Excaerbation Pulmonary HTN Osteoporosis (on prolia) HTN HLD AFib (on eliquis) DM2 Chronic low back pain Chronic lower extremity edema L sided intra-ductal carcinoma (s/p L mastectomy in 2004, s/p chemo/XRT) Lung nodules Thyroid Nodule Imagin10/24/2018 CTA PE Protocol No large central or segmental pulmonary embolus identified. Numerous scattered pulmonary nodules measuring up to 4 mm; according to the 2017 Fleischner criteria, the patient is high risk, an optional CT at 12 months is recommended. Status post bilateral mastectomy with right breast prosthesis present. Partially imaged thyroid gland demonstrates enlarged heterogeneous right and dim inutive left thyroid gland with bilateral calcifications Continue losartan for htn. Continue digoxin, cardizem for atrial fibrillation. Eliquis on hold due to biopsy today. Continue pulmicort, xopenox karina/prn, singulair, and solumedrol for SOB. Continue adempas for pulmonary hypertension. Pulmonology consulted appreciate recommendations. Continue gabapentin. Continue metformin, glipizide and ISS for treatment of her DM. Continue colace and miralax karina for constipation. Continue lexapro. Heme/onc consulted- appreciate recommendation. Follow up lung nodules in the outpatient setting. Cardiology consulted- appreciate recommendations. General surgery consulted- appreciate recommendations. IR consulted- appreciate recommendation. Scheduled for thyroid biopsy today. Continue lasix for chronic lower extremity edema. Patient case reviewed with and plan approved by attending physician, Dr. Nicole abreu. Objective - Vital Signs/Intake and Output Vital Signs (last 24 hours): Temp Pulse Resp BP Pulse Ox 98.2 F 108 H 20 123/80 93 L 10/28/18 06:00 10/28/18 06:00 10/28/18 06:00 10/28/18 06:00 10/28/18 06:00 Intake and Output: 10/28/18 10/28/18 06:59 18:59 Intake Total 2780 Output Total 2210 Balance 570 - Medications Medications: Current Medications Apixaban (Eliquis) 5 mg PO BID [facility]; Protocol Last Admin: 10/27/18 09:52 Dose: 5 mg Atorvastatin Calcium (Lipitor) 40 mg PO HS [facility] Last Admin: 10/27/18 22:46 Dose: 40 mg Budesonide (Pulmicort Respules) 0.5 mg IH [id number] [facility] Last Admin: 10/28/18 08:11 Dose: 0.5 mg Clonazepam (Klonopin) 0.5 mg PO BID PRN; Protocol PRN Reason: Anxiety Digoxin (Digoxin) 0.125 mg PO 1400 [facility] Last Admin: 10/27/18 14:15 Dose: 0.125 mg Diltiazem HCl (Cardizem Cd) 180 mg PO DAILY [facility] Last Admin: 10/27/18 09:52 Dose: 180 mg Escitalopram Oxalate (Lexapro) 10 mg PO DAILY [facility] Last Admin: 10/27/18 09:53 Dose: 10 mg Furosemide (Lasix) 40 mg PO DAILY [facility] Gabapentin (Neurontin) 200 mg PO BID [facility]; Protocol Last Admin: 10/27/18 17:07 Dose: 200 mg Glipizide (Glucotrol) 10 mg PO ACBD [facility] Last Admin: 10/28/18 07:59 Dose: 10 mg Insulin Human Regular (Humulin R High) 0 units SC ACHS [facility]; Protocol Last Admin: 10/28/18 07:59 Dose: 4 units Ipratropium [place] (Atrovent) 0.5 mg IH TIDRESP [facility] Last Admin: 10/28/18 08:11 Dose: 0.5 mg Levalbuterol HCl (Xopenex) 0.63 mg IH TIDRESP [facility] Last Admin: 10/28/18 08:11 Dose: 0.63 mg Levalbuterol HCl (Xopenex) 0.63 mg IH [id number] PRN PRN Reason: Shortness of Breath Losartan Potassium (Cozaar) 100 mg PO DAILY [facility] Last Admin: 10/27/18 09:53 Dose: 100 mg Metformin HCl (Glucophage) 500 mg PO BID [facility] Last Admin: 10/27/18 17:08 Dose: 500 mg Methylprednisolone (Solu-Medrol) 20 mg IV Q12 [facility] Last Admin: 10/27/18 22:47 Dose: 20 mg Montelukast Sodium (Singulair) 10 mg PO HS [facility] Last Admin: 10/27/18 22:46 Dose: 10 mg Riociguat [Adempas] (2.5mg (Home Med)) 1 tab PO TID [facility] Last Admin: 10/27/18 17:09 Dose: 1 tab Pantoprazole Sodium (Protonix Ec Tab) 40 mg PO HS [facility] Last Admin: 10/27/18 22:46 Dose: 40 mg Potassium Chloride (K-Dur 20 Meq Er Tab) 20 meq PO BRK [facility] Last Admin: 10/28/18 07:59 Dose: 20 meq - Labs Labs: 10/27/18 06:30 10/27/18 06:30 PT 14.5 SECONDS (9.4-12.5) H 10/24/18 14:35 INR 1.31 10/24/18 14:35 APTT 35.1 Seconds (26.9-38.3) 10/24/18 14:35
[2018-10-28] MEDS: diltiaZEM 180 mg/24 Hours CD Cap PO SCH (09:37)
[2018-10-28] MEDS: RIOCIGUAT 2.5 MG PO SCH ×3 (09:38→18:35)
[2018-10-28] MEDS: MethylPREDNISolone 40 mg Vial IV SCH ×2 (09:38→21:33)
[2018-10-28] MEDS: POLYETHYLENE GLYCOL 3350 17 GM/Dose PACKET PO SCH ×2 (10:49→18:37)
--- NOTE | 2018-10-28 11:25 | CP.PCM.PCO ---
Physician Communication Note - Physician Communication Note Physician Communication Note: pt seen and examined, plan for biopsy 1pm, will follow Additional Comments - Additional Comments Additional Comments: pt requesting vna, discussed with cm, pt recs for home noted.
--- NOTE | 2018-10-28 11:42 | PN ---
DATE: 10/28/2018 PULMONARY PROGRESS NOTE REFERRING PHYSICIAN: Nabeel Drew MD SUBJECTIVE: The patient is seen sitting in armchair in room. No acute distress. No overnight events reported. The patient is scheduled for thyroid biopsy today. Reports having feeling of plum in her throat, waking up in the morning with dry nostrils due to oxygen, oxygen is currently humidified. The patient also states she did not have a bowel movement for last four days, was given lactulose last night . Also reports wearing CPAP machine last night. No headache, rhinitis, chest pain, abdominal pain, nausea, vomiting, leg pain or leg swelling reported. The patient does still report shortness of breath with exertion. OBJECTIVE: GENERAL: No acute distress. VITAL SIGNS: Blood pressure 123/80, pulse 100, temperature 98.2, and oxygen saturation 93%. HEENT: Moist mucous membranes. NECK: Supple. No JVD. CARDIOVASCULAR: S1 and S2 regular. RESPIRATORY: Fair airflow bilaterally. ABDOMEN: Soft and nontender. No distention. No organomegaly. EXTREMITIES: Trace bilateral lower extremity edema. NEUROLOGIC: Awake, alert and verbal. Follows commands. MEDICATIONS: Reviewed. Eliquis 5 mg twice a day on hold, Lipitor 40 mg at bedtime, Pulmicort 0.5 mg inhalation every 12 hours, Klonopin 0.5 mg twice a day p.r.n., digoxin 0.125 mg daily, Cardizem 180 mg daily, Lexapro 10 mg daily, Lasix 40 mg daily, Neurontin 200 mg twice a day, glipizide 10 mg a.c., Humulin R sliding scale a.c. and at bedtime, Atrovent 0.5 mg inhalation 3 times a day, Xopenex 0.63 mg inhalation every 6 hours p.r.n., Xopenex 0.63 mg inhalation 3 times a day, Cozaar 100 mg daily, metformin 500 mg twice a day, Solu-Medrol 20 mg every 12 hours, Singulair 10 mg at bedtime, Adempas 1 tablet 3 times a day, Protonix 40 mg at bedtime, MiraLax 17 g twice a day, and potassium chloride 20 mEq at breakfast. LABORATORY DATA: Reviewed. POC glucose 210. Urine total volume 2575. Urine protein 24 hour calculation . IMPRESSION AND PLAN: Asthma exacerbation, sleep apnea syndrome, pulmonary hypertension, atrial fibrillation with rapid ventricular response, diabetes mellitus, hypertension, hyperlipidemia, pulmonary nodules on CAT scan which possibly could be radiation-induced pneumonitis or chronic lung disease or inflammatory process. We cannot rule out lung cancer. The patient will need followup CT scan in 3 months to assure stability of nodules. The patient also has diagnoses of pulmonary hypertension and heart failure secondary to valvular heart disease. The patient also has chronic lung disease this could be contributing to shortness of breath. Recommend pulmonary function test as outpatient so we are able to optimize pulmonary medications. Continue continuous positive airway pressure use at bedtime, sleep apnea precaution, head of bed elevated at 45 degrees, gastric prophylaxis, anticoagulation therapy currently on hold for thyroid biopsy. Continue inhaled bronchodilators and fall precautions. We will place the patient on Cepacol throat lozenges for throat discomfort. We will add nasal saline spray. Continue steroid dosing. We will order Bisacodyl suppository x1 at bedtime tonight if no bowel movements, fall precautions and physical therapy. This patient was seen and examined with Dr. Holloway. Discussed assessment and plan as described above. This patient was seen and examined by Kevin Randolph, nurse practitioner. Discussed assessment and plan as described above. Thank you for this consult and we will follow with you. Kevin Randolph APN Anthony Holloway MD
--- NOTE | 2018-10-28 12:51 | PN ---
DATE: 10/28/2018 SUBJECTIVE: The patient is seen sitting in chair. She is awake. She is alert. She is comfortable. She denies any chest pain. She denies any shortness of breath. Her breathing is better. PHYSICAL EXAMINATION: GENERAL: Morbidly obese elderly lady sitting in chair. VITAL SIGNS: Blood pressure 120/80, heart rate 112, respiratory rate 20, temperature 98.2. HEENT: Normocephalic, atraumatic, positive pallor. NECK: Supple, no JVD. LUNGS: Bilateral equal air entry, no rales, no rhonchi. CARDIAC: S1 and S2, regular rate and rhythm, no murmur, no rub. ABDOMEN: Obese, distended, soft, nontender, bowel sounds present. EXTREMITIES: Trace lower extremity edema. INTAKE AND OUTPUT: 2780/2210. LABORATORY DATA: WBC 11, hemoglobin 11.8, hematocrit 37.5, platelets 211. No chemistry today. A 24-hour urine showing creatinine clearance of 87 mL/minute, urine protein of 232 mg per day. CURRENT MEDICATIONS: Atrovent, Cardizem CD 180, losartan 100, digoxin 0.125, Eliquis 5 b.i.d., metformin 500 b.i.d., Glucotrol 10 b.i.d., potassium 20 mEq daily, Klonopin, Lasix 40 mg IV, Lexapro, Lipitor, MiraLax, gabapentin, Adempas 1 tablet t.i.d., Singulair, Xopenex. ASSESSMENT: 1. Morbid obesity. 2. Moderate pulmonary hypertension. 3. History of breast cancer. 4. Edema., likely secondary to pulmonary hypertension backflow. 5. Non-insulin dependent diabetes mellitus. 6. Mild proteinuria. PLAN: 1. Change Lasix to 40 mg p.o. daily. 2. A 24-hour urine shows low normal creatinine clearance, minimal urine protein. Counseled the patient regarding importance of compliance with medications and followup. She is advised to restrict her fluid intake to 2 liters per day. 3. Recommend increasing her outpatient Lasix to 40 mg p.o. daily. 4. Continue losartan 100 mg daily for renal protection. 5. Acceptable glycemic control at this time. 6. Attempt weight loss. Antonia Price MD [facility] # [id number]
--- NOTE | 2018-10-28 14:16 | PQF ---
PROVIDER RESPONSE TEXT: Mild intermittent REVIEWER QUERY TEXT: Asthma Specificity and Type Asthma is documented in the Medical Record. Please specify the type and severity of asthma and indic ate if this is associated with exacerbation or status asthmaticus. Such as: -- Mild intermittent -- Mild persistent -- Moderate persistent -- Severe persistent -- Exercise induced bronchospasm -- Cough variant asthma -- Other, please specify The patient's Clinical Indicators include: Your consultation notes patient admitted with asthma exacerbation. Please provide specificity about type and acuity of the condition in this patient. Query created by: Niurka Deras on 10/26/2018 8:06 AM Electronically signed by: Anthony Holloway MD 10/28/2018 2:13 PM
[2018-10-28] MEDS: Benzocaine/Menthol (Cepacol) Lozenge MT SCH ×3 (14:29→21:28)
[2018-10-28] MEDS ORDERED: Midazolam 2 MG/2 ML VIAL IVP ONE (15:22)
[2018-10-28] MEDS ORDERED: Sodium Chloride 0.45% 1,000 ML IV SCH (15:45)
--- NOTE | 2018-10-28 16:21 | US ---
Date of service: 10/28/2018 PROCEDURE: Ultrasound of the Kidneys HISTORY: elevated protein level COMPARISON: CT abdomen and pelvis with contrast 04/07/14 TECHNIQUE: Sonogram of the kidneys. 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 No obstructing calculus or hydronephrosis identified. The measured portion of the right kidney measures approximately 10.9 x 5.4 x 6.2 cm and left kidney 13.6 x 5.6 x 5.8 cm. Incidental note is made of heterogeneous echogenic hepatic parenchyma which may be seen in setting of hepatic parenchymal disease or fatty infiltration. 7.6 x 7.7 cm left hepatic lobe hypoechoic region within the included portions left hepatic lobe. 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 No obstructing calculus or hydronephrosis identified. The measured portion of the right kidney measures approximately 10.9 x 5.4 x 6.2 cm and left kidney 13.6 x 5.6 x 5.8 cm. Incidental note is made of heterogeneous echogenic hepatic parenchyma which may be seen in setting of hepatic parenchymal disease or fatty infiltration. 7.6 x 7.7 cm more hypoechoic region within the included portions left hepatic lobe; recommend dedicated cross-sectional imaging of the liver for further evaluation.
[2018-10-28] MEDS: Digoxin 125 mcg (0.125 mg) Tab PO SCH (18:36)
[2018-10-28 18:39] VITALS: PULSE 106
--- NOTE | 2018-10-28 20:27 | US ---
PROCEDURE: Ultrasound-guided right thyroid fine needle aspiration biopsy. CLINICAL HISTORY: Breast carcinoma. Dominant heterogeneous right thyroid nodule. Evaluate for malignancy PHYSICIAN(S): Renard Russell M.D. TECHNIQUE: The relative risks and indications for the procedure were explained to the patient and consent obtained. The patient was placed supine on the stretcher with the neck extended and preliminary sonography of the thyroid performed. This reveal heterogeneous 2.5 cm hypoechoic nodule with punctate calcification.. The neck was prepped and draped in the usual sterile fashion. Conscious sedation and monitoring were provided throughout the procedure by a nurse. 1% Xylocaine was used to anesthetize the skin and soft tissues at the access site. Three passes with a 22-gauge needle were performed under ultrasound guidance for fine needle aspiration of the 2.5 cm hypoechoic nodule calcification nodule in the right thyroid. The slides were reviewed by pathology and deemed adequate. The patient tolerated the procedure well. IMPRESSION: 1. Ultrasound guided fine needle aspiration of a 2.5 cm heterogeneous nodule with punctate calcification in the right thyroid.
[2018-10-28] MEDS: Pantoprazole 40 mg EC Tab PO SCH (21:28)
--- NOTE | 2018-10-28 23:47 | PN ---
DATE: 10/28/2018 The patient was seen and examined. I do agree with the note of the medical supervisor. I was involved in the plan of care. This is coverage for Dr. Drew. The patient has acute asthma exacerbation that has improved. She has been given nebulizer treatments. The patient has a thyroid nodule. She went for biopsy of the thyroid nodule. The patient has osteoporosis . She is going to continue with her digoxin and Cardizem for atrial fibrillation. She has been on Eliquis, but it is on hold for the biopsy. The patient is on Adempas for her pulmonary hypertension. She has been followed by Dr. Holloway, and I appreciated his input. The patient is on Colace and MiraLax for her constipation. She does have chronic back pain, and currently her pain is controlled. José Manuel Munoz MD
[2018-10-29 05:35] VITALS: O2SAT 95
[2018-10-29] MEDS: Ipratropium 0.02% Inhal Soln (0.5 mg/2.5 ml) UD IH SCH (07:19)
[2018-10-29] MEDS: Levalbuterol 0.63 MG/3 ML Inhal Soln UD IH SCH (07:20)
[2018-10-29] MEDS: Budesonide 0.5 mg/2 ml Inhal Susp UD IH SCH (07:20)
[2018-10-29] MEDS: Insulin Reg-HIGH-Coverage SC SCH ×2 (08:42→12:54)
[2018-10-29] MEDS: Potassium Chloride 20 mEq ER Tab PO SCH (08:43)
[2018-10-29] MEDS: POLYETHYLENE GLYCOL 3350 17 GM/Dose PACKET PO SCH (09:51)
[2018-10-29] MEDS: MethylPREDNISolone 40 mg Vial IV SCH (09:51)
[2018-10-29] MEDS: Benzocaine/Menthol (Cepacol) Lozenge MT SCH (09:51)
[2018-10-29] MEDS: RIOCIGUAT 2.5 MG PO SCH (09:52)
[2018-10-29] MEDS: diltiaZEM 180 mg/24 Hours CD Cap PO SCH (09:58)
--- NOTE | 2018-10-29 10:54 | DS ---
HISTORY OF PRESENT ILLNESS: The patient is a 68-year-old female, who was admitted to the hospital because of acute asthma exacerbation. She has had improvement of her symptoms. She is on nebulizer treatment. She has a history of lung nodule and thyroid nodule, the thyroid nodule was biopsied yesterday. She was supposed to the discharged with intravenous sedation and so she was kept into the hospital for observation. The patient has osteoporosis and is on Prolia. She has hypertension, which is controlled. The patient is currently on losartan for hypertension. She is going to continue with Eliquis for her atrial fibrillation. She is on metformin for her diabetes type 2 as well as Glucotrol. She has been continued on Lasix. She has Lipitor for dyslipidemia. The patient had a renal ultrasound that shows evidence of a rotated horseshoe kidney. She is supposed to be discharged home today. PHYSICAL EXAMINATION VITAL SIGNS: Temperature is 98, pulse of 95, blood pressure is 124/81, respirations 20, O2 saturation 95%. GENERAL: The patient is lying in bed, flat, comfortable. HEENT: No oral lesion. Anicteric sclerae. Moist mucosa. NECK: No JVD, adenopathy, or thyromegaly. CARDIOVASCULAR: S1 and S2, regular. No murmurs, rubs, or gallops. LUNGS: Clear to auscultation bilaterally. No wheeze, rales, or rhonchi. ABDOMEN: Bowel sounds are positive, soft, nontender and nondistended. EXTREMITIES: No cyanosis, clubbing or edema. ASSESSMENT 1. Acute asthma exacerbation, resolved. 2. Pulmonary hypertension. 3. Osteoporosis. 4. Hypertension. 5. Dyslipidemia. 6. Atrial fibrillation, on Eliquis. 7. Chronic back pain. 8. Lower extremity edema. 9. Thyroid nodules, status post biopsy. 10. History of intraductal carcinoma of the breast with mastectomy in 2004 and chemotherapy. 11. A right horseshoe kidney. PLAN: The patient is currently comfortable. She is going to be on losartan for hypertension. She is on Eliquis for anticoagulation that was on hold because of the biopsy. The patient is on potassium replacement. She is on Lasix for her edema. She is on Lipitor for dyslipidemia. She is Neurontin for her neuropathy. She is on Singulair. She is going to be discharged home today. CONDITION: Stable. ACTIVITIES: Increase as tolerated. José Manuel Munoz MD [facility] # [id number]
[2018-10-29 12:04] VITALS: BP 127/71; PULSE 96; RESP 18; TEMP 98.3
--- NOTE | 2018-10-29 22:08 | PN ---
DATE: 10/29/2018 SUBJECTIVE: The patient is seen sitting in chair. She is awake. She is alert. She is comfortable. PHYSICAL EXAMINATION: GENERAL: Obese elderly lady sitting in chair. VITAL SIGNS: Blood pressure 127/71, heart rate 96, respiratory rate 18, temperature 98.3. HEENT: Normocephalic, atraumatic, positive pallor. NECK: Supple, no JVD. LUNGS: Bilateral equal air entry, no rales. CARDIAC: S1, S2, regular rate and rhythm, no murmur, no rub. ABDOMEN: Obese, distended, soft, nontender, bowel sounds present. EXTREMITIES: Trace lower extremity edema. INTAKE AND OUTPUT: LABORATORY DATA: No chemistries. CURRENT MEDICATIONS: Atrovent, Cardizem CD 180, Cozaar 100, digoxin 0.125 daily, Dulcolax, Eliquis 5 b.i.d., Glucophage 500 b.i.d., Glucotrol 10 b.i.d., Lasix 40 mg p.o. daily, Lexapro, Lipitor, MiraLax, Neurontin, Protonix. ASSESSMENT: 1. Chronic lower extremity edema. 2. Morbid obesity. 3. Pulmonary hypertension. 4. History of breast cancer. 5. Low normal creatinine clearance. 6. on the right side. PLAN: 1. Continue Lasix 40 mg daily 2. Restrict p.o. fluids to 1800 mL/day. 3. Continue metformin. 4. Continue glyburide. 5. Continue current antihypertensives. 6. Continue ARB for renal protection. Antonia Price MD
== END 2018-10-29 13:07 | disposition home or self-care (01) | DRG 191 ==
LOC: ED 13:14 → ERH 15:39 → 2RSO 18:24 → OBSVTOIN 10-25 19:34 → UNDODISIN 10-28 15:00
PROVIDERS: ADMIT Internal Medicine; ATTEND Internal Medicine
PROC: BG44ZZZ Ultrasonography of Thyroid Gland (ICD-10-PCS; 2018-10-28)
PROC: 0GBH3ZX Excision of Right Thyroid Gland Lobe, Percutaneous Approach, Diagnostic (ICD-10-PCS; principal; 2018-10-28 12:30)
DX: J44.1 Chronic obstructive pulmonary disease with (acute) exacerbation (principal); Z68.41 Body mass index [BMI] 40.0-44.9, adult; J45.21 Mild intermittent asthma with (acute) exacerbation; I11.0 Hypertensive heart disease with heart failure; I48.2 Chronic atrial fibrillation; I27.20 Pulmonary hypertension, unspecified; M81.0 Age-related osteoporosis without current pathological fracture; E11.9 Type 2 diabetes mellitus without complications; M54.5 Low back pain; Z90.13 Acquired absence of bilateral breasts and nipples; Z85.3 Personal history of malignant neoplasm of breast; Z87.891 Personal history of nicotine dependence; Z92.21 Personal history of antineoplastic chemotherapy; Z92.3 Personal history of irradiation; E66.01 Morbid (severe) obesity due to excess calories; Z79.01 Long term (current) use of anticoagulants; I25.10 Atherosclerotic heart disease of native coronary artery without angina pectoris; D64.9 Anemia, unspecified; E04.2 Nontoxic multinodular goiter; E78.5 Hyperlipidemia, unspecified; G47.30 Sleep apnea, unspecified; G89.29 Other chronic pain; I08.3 Combined rheumatic disorders of mitral, aortic and tricuspid valves; I50.9 Heart failure, unspecified; J06.9 Acute upper respiratory infection, unspecified; K21.9 Gastro-esophageal reflux disease without esophagitis; K27.9 Peptic ulcer, site unspecified, unspecified as acute or chronic, without hemorrhage or perforation; K59.00 Constipation, unspecified; Q63.1 Lobulated, fused and horseshoe kidney; Z79.4 Long term (current) use of insulin; Z80.0 Family history of malignant neoplasm of digestive organs; Z80.51 Family history of malignant neoplasm of kidney; Z90.49 Acquired absence of other specified parts of digestive tract; Z98.82 Breast implant status